=== PATIENT | female | born 1965 | race Caucasian/White ===

== ENCOUNTER 2024-02-24 12:37 | Emergency (ER) | payer BC, SELFPAY ==
--- NOTE | ~2024-02-24 | CT_ITS ---
EXAMINATION: CT diagnostic chest wo con DATE: 02/24/2024 15:15 INDICATION: left posterior rib pain, fall TECHNIQUE: Computed tomography (CT) of the chest was performed with 100 mL Omnipaque-350 intravenous contrast. Automated exposure control and iterative reconstruction technique were employed. The dose-l ength product was 128.64 mGy-cm. COMPARISON: None. FINDINGS: CHEST: Thoracic aorta: No significant dilation. Mild arch calcification. Lung parenchyma and airways: Airways are clear. Bilateral lower lobe linear opacities likely represen ting atelectasis/scar. Thoracic inlet, axillae and chest wall: No thyroid or soft tissue mass. Left posterolateral chest sub cutaneous stranding and subcutaneous gas along the chest wall at the level of the ninth rib. No axill shy lymphadenopathy. Mediastinum: No mass or lymphadenopathy. Heart and pericardium: Normal heart size. No pericardial effusion. Coronary artery calcifications: Absent. Pleura: No effusion or mass. Upper abdomen: Diffusely low density liver parenchyma. Thoracic bones: Mildly displaced left posterolateral eighth rib fracture. Nondisplaced left posterior ninth-11th rib fractures. IMPRESSION: Mildly displaced left posterolateral eighth rib fracture. Nondisplaced left posterior ninth through 1 1th rib fractures. Extrathoracic subcutaneous gas overlying the left posterolateral ninth rib with overlying soft tissue contusion. Correlate for history or evidence of penetrating trauma. No acute intrathoracic process detected. Hepatic steatosis. Reviewed, dictated and finalized at [facility]. CHILI IMPRESSION: Mildly displaced left posterolateral eighth rib fracture. Nondisplaced left pos terior ninth through 11th rib fractures. Extrathoracic subcutaneous gas overlying the left posterolateral ninth rib with overlying soft tissue contusion. Correlate for history or evidence of penetrat ing trauma. No acute intrathoracic process detected. Hepatic steatosis.
--- NOTE | ~2024-02-24 | CT_ITS ---
EXAMINATION: CT thoracic spine wo con DATE: 02/24/2024 15:15 INDICATION: fall . TECHNIQUE: Computed tomography (CT) of the thoracic spine was performed without intravenous contrast. Automated exposure control and iterative reconstruction technique were employed. The dose-length pro duct was 364.08 mGy-cm. COMPARISON: CT chest, same date FINDINGS: Vertebral body alignment intact. Vertebral body heights preserved. Mild multilevel degenera tive disc disease. No traumatic malalignment or fracture. Left posterior rib fracture. Bibasilar scar /atelectasis. Hepatic steatosis. No severe central canal or neural foraminal narrowing. IMPRESSION: No acute fracture or traumatic malalignment detected in the thoracic spine. Reviewed, dictated and finalized at location [facility]. [facility] [employer]
[2024-02-24 12:45] VITALS: BP 128/73; PULSE 75; RESP 18; TEMP 36.7; O2SAT 95
--- NOTE | 2024-02-24 14:54 | ED_ITS ---
HPI - Back Pain/Injury General Chief Complaint: Back Pain/Injury Stated Complaint: fall, back pain Time Seen by Provider: 02/24/24 14:39 History of Present Illness HPI Narrative: 59-year-old female presents to emergency department for mid/left-sided back pain. Patient states yesterday she was walking up the stairs when she slipped and fell backwards. She hit her mid back on the corner of the step. She did not hit her head or lose consciousness. She denies low back pain, neck pain or other injuries acquired. reports pain is significantly worse with taking a deep breath and with movement. Denies focal numbness or weakness, saddle anesthesia, bowel or bladder incontinence, urinary retention. States she took Tylenol yesterday without improvement. Related Data Allergies Allergy/AdvReac Type Severity Reaction Status Date / Time No Known Allergies Allergy Mild Verified 02/24/24 14:38 Review of Systems Review of Systems: All systems reviewed & are unremarkable except as noted in HPI and below Exam Narrative: GENERAL: Well-appearing, well-nourished, and in no acute distress. HEAD: Normocephalic, atraumatic. EYES: PERRLA and EOMI. ENT: Nares clear, no rhinorrhea or epistaxis. Mucous membranes moist. NECK: No midline cervical spinous tenderness, step-offs or deformities BACK: point tenderness around T9-T11 with tenderness and ecchymosis to the left paraspinous muscles and ribs. No crepitus, step-offs or deformities. No tenderness to lumbar spine or remainder of thoracic spine CHEST: Clear to auscultation. No respiratory distress. no tenderness anterior chest wall HEART: Regular rate and rhythm. No murmur heard. Normal peripheral pulses. ABDOMEN: Soft, nontender, nondistended, normal active bowel sounds. EXTREMITIES: Normal range of motion. No edema. SKIN: Warm, dry, no rash. NEURO: No focal deficits. Alert and oriented x3. No saddle anesthesia. Sensation intact bilateral lower extremities. BLE strength 5/5. Course Vital Signs Vital signs: Vital Signs Temperature 98.1 F 02/24/24 12:45 Pulse Rate 75 02/24/24 12:45 Respiratory Rate 18 02/24/24 12:45 Blood Pressure 128/73 02/24/24 12:45 Pulse Oximetry 95 02/24/24 12:45 Temperature 97.7 F 02/24/24 15:37 Pulse Rate 67 02/24/24 15:37 Respiratory Rate 20 02/24/24 15:37 Blood Pressure 142/87 H 02/24/24 15:37 Pulse Oximetry 97 02/24/24 15:37 MDM - Back Pain/Injury MDM Narrative Medical decision making narrative: 59-year-old female presents emergency department for mid and left back pain after a mechanical injury that occurred yesterday. See HPI for further history. Vitals are stable. She is neurovascularly intact. Exam is significant for the above. CT thoracic spine shows no acute fracture traumatic malalignment. Chest CT shows mildly displaced left posterior lateral 8th rib fracture with nondisplaced left posterior 9th through 11th rib fractures. There is extra thoracic subcutaneous gas overlying the left posterior lateral 9th rib with overlying soft tissue contusion. There is no penetrating trauma to explain this on exam. There is no acute intrathoracic process detected, no hemothorax or pneumothorax. Patient was updated on workup. She received Flexeril, Toradol, lidocaine patch and [place] with significant improvement. Shared decision making regarding disposition today including transfer to Trauma Center. Patient politely declines this and would like to go home. She states she feels much better after the pain medications. She is using an incentive spirometer in the room is doing very well, IS greater than 1750. She has no comorbidities, no history of COPD or asthma, no underlying pneumonia. She is not a smoker. Her sister is at bedside who is planning to keep a close eye on the patient and take care of her until she is able to follow-up with her PCP. I discussed strict ED return precautions and use of incentive spirometer. They are agreeable with the plan verbalized understanding. Discharged in stable condition. Discharge Plan Discharge Clinical Impression: Multiple fractures of ribs Patient Disposition: Home, Self-Care Condition: Stable Instructions: Antibiotic Form, Rib Fracture (ED), Back Pain (ED) Additional Instructions: Your evaluated in the emergency department for back pain. Your found to have fractures of your 8 through 11th left ribs. We discussed having the stay in the hospital or transfer to a trauma center for several rib fractures however you politely declined. Use the incentive spirometer as discussed. Take the medications as needed for pain. Follow-up closely with her primary care provider. Return to the emergency department if you develop difficulty breathing, fever, cough, or other concerning symptoms. Prescriptions: New cyclobenzaprine 10 mg tablet 10 mg PO TID PRN (Reason: muscle spasm) Qty: 14 0RF hydrocodone-acetaminophen 5-325 mg tablet 1 tablet PO Q8H PRN (Reason: pain) Qty: 14 0RF ibuprofen 800 mg tablet 800 mg PO TID PRN (Reason: pain) Qty: 20 0RF lidocaine 5 % adhesive patch,medicated 1 patch topical DAILY Qty: 15 0RF Rx Instructions: leave on most painful area for up to 12 hrs. do not use more than 1 patch in a 24-hour period. Follow-up/Referrals: Ofe,Hernandez Morin MD [Primary Care Provider] -
[2024-02-24] MEDS: CYCLOBENZAPRINE HCL 10 MG TABLET PO (15:00)
[2024-02-24] MEDS: KETOROLAC 30 MG/ML VIAL (*BKC) IM (15:01)
[2024-02-24] MEDS: LIDOCAINE 5% PATCH 1 PATCH TRANSDERM (15:01)
[2024-02-24 15:37] VITALS: BP 142/87; PULSE 67; RESP 20; TEMP 36.5; O2SAT 97
[2024-02-24] MEDS: HYDROcodone/acetaminophen (*CRX) 5-325 MG TABLET 1 TAB PO (15:40)
== END 2024-02-24 16:24 | disposition home or self-care (01) ==
PROVIDERS: Emergency Provider Physician Assistant; PCP Family Medicine
DX: S22.42XA Multiple fractures of ribs, left side, initial encounter for closed fracture (principal); W10.9XXA Fall (on) (from) unspecified stairs and steps, initial encounter
CPT/HCPCS: 71250; 72128; 96372; 99284; A9270; J1885

== ENCOUNTER 2024-07-15 18:43 | Observation (INO) | payer BC, SELFPAY ==
--- NOTE | ~2024-07-15 | CT_ITS ---
CLINICAL INDICATION: Nausea, vomiting and diarrhea COMPARISON: None. TECHNIQUE: Multiple contiguous axial images of the abdomen and pelvis were performed following the ad ministration of with 100 mL Omnipaque-350 intravenous contrast The dose-length product (DLP) was 292.59 mGy-cm. Automated exposure control and iterative reconstruction technique were employed. FINDINGS/OBSERVATIONS: Visualized lower thorax: The bilateral lung bases are clear. The heart is of normal size, without pericardial effusion. The distal esophagus is fluid-filled and demonstrates mural thickening with hyperemia of the inner wa ll. Liver: The liver demonstrates fatty infiltration and is not enlarged. Gallbladder and biliary system: The gallbladder is surgically absent. Pancreas: The pancreas enhances homogeneously without ductal dilatation. Spleen: The spleen enhances homogeneously and is not enlarged. Kidneys: The bilateral kidneys enhance symmetrically without hydronephrosis or renal calculi. Adrenal glands: Unremarkable. Gastrointestinal tract: Colonic diverticulosis without surrounding inflammatory change. Appendix: The air-filled appendix is of normal caliber (axial series, images 94 through 112) Vasculature: Unremarkable. Lymph nodes: No pathologically enlarged or morphologically suspicious lymph nodes within the retroperitoneum or at the root of the mesentery. Pelvic structures: The bladder is decompressed, and otherwise unremarkable. The uterus is retroverted and antral flexed. Body wall and musculoskeletal: Small bowel containing nonobstructing supraumbilical hernia is present. No significant degenerative disease within the lower thoracic or lumbosacral spine. IMPRESSION: Findings within the distal esophagus for which esophagitis is suspected. Colonic diverticulosis. Small bowel containing, nonobstructing, supraumbilical hernia. Fatty infiltration of the liver. Reviewed, dictated and finalized at location A.
--- OUTSIDE RECORDS SUMMARY | 2024-07-15 18:45 | XMS_ITS | Clinical Summary ---
Author Organization [address] lt Address [address] [place] [address] [place] [address] Care Team Providers Care Nut Sorter Operator Name Role Phone Unknown, Notinfile Primary Care Provider Unavail able Allergies No known active allergies Medications azithromycin (ZITHROMAX) 250 mg tabletIndicatio ns:Bronchitis Take two tabs first day, then one tab daily x 4 days 6 tablet 4 Active Additional Information Patient not taking.Reported on 06/25/2024 methylPREDNISol one (Medrol, Vik,) 4 mg DosepackIndicat ions:Bronchitis follow package directions 1 packet 4 Active Additional Information Patient not taking.Reported on 06/25/2024 cyclobenzaprine (FLEXERIL) 10 mg tablet Take by mouth nightly as needed 5 Active Active Problems No known active problems Encounters Date Type Department Care Team Description 06/25/2024 12:45 PM CDT Office Visit [facility] at [address] [place] [address] Ally Cohn NP Viral URI (Primary Dx) from Last 3 Months Social History Tobacco Use Types Packs/Day Years Used Date Smoking Tobacco: Never Assessed Comments No Sex and Gender Information Value Date Recorded Sex Assigned at Not on file 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 Gender Identity Not on file Sexual Orientation Not on file Obstetrics History Last Filed Vital Signs Vital Sign Reading Time Taken Comments Blood Pressure 116/68 06/25/2024 12:40 PM CDT Pulse 67 06/25/2024 12:40 PM CDT Temperature 36.6 C (97.8 F) 06/25/2024 12:40 PM CDT Respiratory Rate 16 06/25/2024 12:40 PM CDT Oxygen Saturation 98% 06/25/2024 12:40 PM CDT Inhaled Oxygen Concentration - - Weight 65.8 kg (145 lb) 06/25/2024 12:40 PM CDT Height 149.9 cm (4' 11 ) 06/25/2024 12:40 PM CDT Body Mass Index 29.29 06/25/2024 12:40 PM CDT Plan of Treatment Health Maintenance Due Date Last Done Comments Breast Cancer Screening-Mammogram 1965 Cervical Cancer Screening 1965 Colon Cancer Screening-Colonoscopy 1965 Depression Screening 1965 Hepatitis C Screening 1965 DTaP/Tdap/Td Vaccine (1 - Tdap) 01/13/1976 Hepatitis B Screening 1983 Regular Well Visit/Exam 18-64 1983 Zoster Vaccine (1 of 2) 2015 Influenza Vaccine (Season Ended) 2024 Pneumococcal vaccine <65 Aged Out No longer eligible based on patient's age to complete this topic Procedures Procedure Name Priority Date/Time Associated Diagnosis Comments POCT RAPID STREP Routine 06/25/2024 12:5 5 PM CDT Viral URI from Last 3 Months Results * POCT rapid strep A (06/25/2024 12:55 PM CDT) Rapid Strep A, POC Negative Negative Swab 06/25/2024 12:5 5 PM CDT Ally Cohn NP POINT OF CARE TEST ORDERABLES Final Result from Last 3 Months Insurance [employer] Care Teams Nut Sorter Operator Relationship Specialty Start Date End Date Unknown, Notinfile PCP - General 04/01/23
--- OUTSIDE RECORDS SUMMARY | 2024-07-15 18:45 | XMS_ITS | Referral Summary ---
Author Organization [address] lto Address [address] [place] [address] Care Team Providers Care Order Dispatcher Name Role Phone Unknown, Notinfile Primary Care Provider Unavail able Encounters Date Type Department Care Team Description 06/25/2024 12:45 PM CDT Office Visit [facility] at [place] [address] [place] [address] Ally Cohn, KALA Viral URI (Primary Dx) from Last 3 Months Allergies No known active allergies Medications azithromycin [...] Active Active Problems No known active problems Social History Tobacco Use Types Packs/Day Years Used Date Smoking Tobacco: Never Assessed Comments No Sex and Gender Information Value Date Recorded Sex Assigned at Not on file 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 Gender Identity Not on file Sexual Orientation Not on file Last Filed Vital Signs Vital Sign Reading [...] 06/25/2024 12:40 PM CDT Plan of Treatment Not on file Procedures Procedure Name Priority Date/Time Associated Diagnosis Comments POCT RAPID STREP Routine 06/25/2024 12:5 5 PM CDT Viral URI from Last 3 Months Results * POCT rapid strep A (06/25/2024 12:55 PM CDT) [facility] Signature Rapid Strep A, POC Negative Negative Swab 06/25/2024 12:5 5 PM CDT Ally Cohn NP POINT OF CARE TEST ORDERABLES Final Result from Last 3 Months Insurance PENDING SALE TO [facility] ACCESS Care Teams Order Dispatcher Relationship Specialty Start Date End Date Unknown, Notinfile PCP - General 04/01/23
[2024-07-15 18:46] VITALS: BP 106/85; PULSE 107; RESP 14; TEMP 36.8; O2SAT 96
[2024-07-15 18:49] VITALS: BP 118/67; PULSE 67; RESP 18; TEMP 36.9; O2SAT 99
--- NOTE | 2024-07-15 18:49 | ECG_ITS ---
Test Date: 2024-07-15 18:59:02 Measurements Intervals [place] Rate: 78 P: 39 PA: 142 QRS: 11 QRSD: 85 T: 62 QT: 413 QTc: 472 Interpretive Statements SINUS RHYTHM WITH OCCASIONAL VENTRICULAR PREMATURE COMPLEXES CONSIDER RIGHT VENTRICULAR CONDUCTION DELAY BORDERLINE ST ABNORMALITY- HIGH LATERAL LEADS BASELINE ARTIFACT- I, II, AVR BORDERLINE ECG No previous ECG available for comparison Electronically Signed On 07-15-2024 19:06:13 CDT by Alberto Bowman D.O.
[2024-07-15 19:10] LABS: Basophils Percent Auto 0.1 % (0.2-1.2); Eosinophils Percent Auto 0.1 % (0-4.4); Hematocrit 45.4 % (37.0-47.0); Immature Granulocyte Absolute 0.06 K/mm3 (0.00-0.031); Immature Granulocyte Percent A 0.5 % (0-0.5); Lymphocytes Absolute Auto 1.18 K/mm3 (0.9-3.2); Lymphocytes Percent Auto 9.4 % (18.3-44.2); Mean Corpuscular HGB Conc 35.2 g/dl (32-36); Mean Corpuscular Hemoglobin 34.5 pg (26-34); Mean Corpuscular Volume 97.8 fl (80-100); Mean Platelet Volume 11.9 fl (7.4-10.4); Monocytes Absolute Auto 1.6 K/mm3 (0.1-0.6); Monocytes Percent Auto 12.9 % (2.6-8.5); Neutrophils Absolute Auto 9.7 K/mm3 (1.3-6.7); Nucleated Red Blood Cells Perc 0.2 % (0.0-0.2); Platelet Count Result 182 k/mm3 (150-375); Red Blood Count 4.64 M/mm3 (4.2-5.4); Red Cell Distribution Width 13.4 % (11.5-14.5); White Blood Count 12.5 K/mm3 (4.5-10.0)
[2024-07-15] MEDS: ONDANSETRON INJ 4 MG/2 ML VIAL IV PUSH (19:18)
[2024-07-15] MEDS: SODIUM CHLORIDE 0.9% IV 1,000 ML 999 ML IV CONT ×2 (19:19→20:20)
[2024-07-15] MEDS: FAMOTIDINE 20 MG/2 ML VIAL IV PUSH (19:19)
[2024-07-15 19:24] LABS: Alanine Aminotransferase 102 U/L (6-35); Albumin Level 4.9 g/dL (3.5-5.1); Alkaline Phosphatase 144 U/L (38-126); Anion Gap 20 mmol/L (4-12); Aspartate Amino Transferase 115 U/L (14-36); Bilirubin,Total 6.5 mg/dL (0.2-1.3); Blood Urea Nitrogen 43 mg/dL (7-17); Calcium 9.3 mg/dL (8.4-10.2); Carbon Dioxide 36 mmol/L (22-30); Chloride 71 mmol/L (98-107); Estimated Glomerular Filt Rate 52; Glucose 142 mg/dL (65-110); Lipase 75 U/L (23-300); Potassium 2.6 mmol/L (3.4-5.0); Sodium 127 mmol/L (137-145)
[2024-07-15 19:31] LABS: Troponin I < 0.012 ng/mL (0.000-0.034)
--- OUTSIDE RECORDS SUMMARY | 2024-07-15 19:39 | XMS_ITS | Referral Summary ---
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
--- OUTSIDE RECORDS SUMMARY | 2024-07-15 19:39 | XMS_ITS | Clinical Summary ---
Author Organization [address] lt Address [address] [place] [address] [place] [address] Care Team Providers Care Medical Office Scheduler Name Role Phone Unknown, Notinfile Primary Care [...] Description 06/25/2024 12:45 PM CDT Office Visit 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
[2024-07-15 19:47] LABS: Influenza A QL RT-PCR Negative (Negative); Influenza B QL RT-PCR Negative (Negative); RSV RNA, RT-PCR Negative (Negative); SARS-CoV-2 RNA PCR Negative (Negative)
--- NOTE | 2024-07-15 19:55 | ED_ITS ---
HPI - Nausea/Vomiting/Diarrhea General Chief complaint: Nausea/Vomiting/Diarrhea Stated complaint: vomiting for 4 days, SOB Time Seen by Provider: 07/15/24 18:48 History of Present Illness HPI Narrative: 59-year-old otherwise healthy female presenting to the emergency room with chief complaint of nausea vomiting and some abdominal pain for last 4 days. She states that she feels very sick and ill. Denies any chest pain, chest tightness, fever, chills. No urinary complaints. No history of similar events. Patient is a poor historian triage. Was otherwise in her normal state of health, no sick contacts. No history of abdominal surgeries. She states she has vomited numerous times the last 2 days and not able to keep anything down. Related Data Allergies Allergy/AdvReac Type Severity Reaction Status Date / Time No Known Allergies Allergy Mild Verified 07/15/24 18:44 Review of Systems 2 Review of Systems: As reviewed above in HPI Exam 2 Narrative: GENERAL: [Well-appearing, well-nourished, and in no acute distress.] HEAD: [Normocephalic, atraumatic.] EYES: [PERRLA and EOMI.] ENT: Nares clear, no rhinorrhea or epistaxis. Mucous membranes dry. NECK: Supple. In no min CHEST: [Clear to auscultation. No respiratory distress.] HEART: [Regular rate and rhythm]. No murmur heard. [Normal peripheral pulses.] ABDOMEN: [Soft, nondistended], [nontender], [No rigidity or guarding] EXTREMITIES: Normal range of motion. [No edema.] SKIN: Warm, dry, no rash. NEURO: [No focal deficits]. Alert and oriented [x3.] PSYCH: [Normal mood and affect.] Course Vital Signs Vital signs: Vital Signs Temperature 36.8 C 07/15/24 18:46 Pulse Rate 107 H 07/15/24 18:46 Respiratory Rate 14 07/15/24 18:46 Blood Pressure 106/85 07/15/24 18:46 Pulse Oximetry 96 07/15/24 18:46 Oxygen Delivery Room Air 07/15/24 18:46 Temperature 36.8 C 07/15/24 18:46 Pulse Rate 72 07/15/24 20:27 Respiratory Rate 14 07/15/24 20:27 Blood Pressure 129/82 07/15/24 20:27 Pulse Oximetry 97 07/15/24 20:27 Oxygen Delivery Room Air 07/15/24 18:46 MDM - Nausea/Vomiting/Diarrhea MDM Narrative Medical decision making narrative: 59-year-old female with no pertinent past medical history presenting with 4 days of nausea vomiting and abdominal discomfort. Patient states she feels ill. Denies any chest pain, fever, chills. No urinary complaints. Slightly tachycardic on triage vitals but no hypoxia, tachypnea, blood pressure concerns. No fever. She has a soft nondistended abdomen. No appreciable tenderness to palpation. She is dehydrated appearance with dry mucous membranes. She was given fluid resuscitation and IV was established with laboratory assessments drawn. CBC, CMP, lipase ordered. CT scan of the abdomen pelvis was obtained. She was treated with a combination of Pepcid, Zofran, fluids and re-evaluated frequently. Patient's laboratory studies came back with a critically low potassium of 2.6. Magnesium level is added on. She was given IV and p.o. potassium supplementation as well as a magnesium bolus. Additional fluids given as she was having significant dehydration with low sodium and chloride as well as a slightly elevated creatinine. Pending workup completion. Workup shows slight leukocytosis of 12.5, hemoglobin 16.0 with hemoconcentration likely from dehydration. Pre renal azotemia with a BUN of 43 and creatinine 1.08 as well as dehydration with low sodium and chloride. LFTs mildly elevated. Bilirubin elevated. Negative troponin. Negative lipase. Urinalysis with no signs of infection. CT scan shows distal esophagitis, colonic diverticulosis, nonobstructing supraumbilical hernia and fatty liver. Patient was re-evaluated had significant improvement after fluids and electrolyte repletion. Given her critically low potassium she will require admission to a telemetry monitored bed for continued repletion and observation. Patient was no longer nauseous or vomiting here in the emergency department her vital signs are all normal. I discussed the case with the night hospitalist Dr. Odonnell who accepted the patient to telemetry monitored bed at this time. Medical Records Attestation: I reviewed the patient's medical records. Lab Data Attestation: I reviewed the patient's lab results. 07/15/24 18:57 07/15/24 18:57 Labs: Lab Results 07/15/24 07/15/24 07/15/24 Range/Units 18:57 18:57 18:57 WBC 12.5 H (4.5-10.0) K/mm3 RBC 4.64 (4.2-5.4) M/mm3 Hgb 16.0 H (12.0-15.0) g/dL Hct 45.4 (37.0-47.0) % MCV 97.8 (80-100) fl MCH 34.5 H (26-34) pg MCHC 35.2 (32-36) g/dl RDW 13.4 (11.5-14.5) % Plt Count 182 (150-375) k/mm3 MPV 11.9 H (7.4-10.4) fl Immature Gran % (Auto) 0.5 (0-0.5) % Neut % (Auto) 77.0 H (45.5-73.1) % Lymph % (Auto) 9.4 L (18.3-44.2) % [place] % (Auto) 12.9 H (2.6-8.5) % Eos % (Auto) 0.1 (0-4.4) % Baso % (Auto) 0.1 L (0.2-1.2) % Lymph # (Auto) 1.18 (0.9-3.2) K/mm3 [place] # (Auto) 1.6 H (0.1-0.6) K/mm3 Eos # (Auto) 0.0 (0-0.3) K/mm3 Baso # (Auto) 0.0 (0.0-0.1) K/mm3 Abs Immat Gran (auto) 0.06 H (0.00-0.031) K/mm3 Absolute Neuts (auto) 9.7 H (1.3-6.7) K/mm3 Absolute Nucleated RBC 0.020 H (0.0-0.012) K/mm3 Nucleated RBC % 0.2 (0.0-0.2) % Sodium Cancelled 127 L Potassium Cancelled 2.6 L* Chloride Cancelled Carbon Dioxide Anion Gap BUN Creatinine Estim Creat Clear Calc Estimated GFR Glucose Calcium Magnesium (1.6-2.3) mg/dL Total Bilirubin AST ALT Alkaline Phosphatase Troponin I (0.000-0.034) ng/mL Total Protein Albumin Lipase Urine Color (Yellow) Urine Appearance (Clear) Urine pH (5.0-9.0) Ur Specific [place] (1.001-1.035) Urine Protein (Negative) mg/dL Urine Glucose (UA) (Negative) mg/dL Urine Ketones (Negative) mg/dL Ur Blood (Man) (Negative) Urine Nitrate (Negative) Urine Bilirubin (Negative) Urine Urobilinogen (<2.0) mg/dL Leukocyte Esterase Rfl (Negative) JANY/UL Urine RBC (0-2) /hpf Urine WBC (0-3) /hpf Ur Squamous Epith Cells (Few) /hpf Urine Bacteria /hpf Urine Casts Influenza A (RT-PCR) (Negative) Influenza B (RT-PCR) (Negative) RSV (RT-PCR) (Negative) SARS-CoV-2 RNA (RT-PCR) (Negative) 07/15/24 07/15/24 07/15/24 Range/Units 18:57 18:57 18:57 WBC (4.5-10.0) K/mm3 RBC (4.2-5.4) M/mm3 Hgb (12.0-15.0) g/dL Hct (37.0-47.0) % MCV (80-100) fl MCH (26-34) pg MCHC (32-36) g/dl RDW (11.5-14.5) % Plt Count (150-375) k/mm3 MPV (7.4-10.4) fl Immature Gran % (Auto) (0-0.5) % Neut % (Auto) (45.5-73.1) % Lymph % (Auto) (18.3-44.2) % [place] % (Auto) (2.6-8.5) % Eos % (Auto) (0-4.4) % Baso % (Auto) (0.2-1.2) % Lymph # (Auto) (0.9-3.2) K/mm3 [place] # (Auto) (0.1-0.6) K/mm3 Eos # (Auto) (0-0.3) K/mm3 Baso # (Auto) (0.0-0.1) K/mm3 Abs Immat Gran (auto) (0.00-0.031) K/mm3 Absolute Neuts (auto) (1.3-6.7) K/mm3 Absolute Nucleated RBC (0.0-0.012) K/mm3 Nucleated RBC % (0.0-0.2) % Sodium Potassium Chloride 71 L Carbon Dioxide Cancelled 36 H Anion Gap Cancelled 20 H BUN Cancelled Creatinine Estim Creat Clear Calc Estimated GFR Glucose Calcium Magnesium (1.6-2.3) mg/dL Total Bilirubin AST ALT Alkaline Phosphatase Troponin I (0.000-0.034) ng/mL Total Protein Albumin Lipase Urine Color (Yellow) Urine Appearance (Clear) Urine pH (5.0-9.0) Ur Specific [place] (1.001-1.035) Urine Protein (Negative) mg/dL Urine Glucose (UA) (Negative) mg/dL Urine Ketones (Negative) mg/dL Ur Blood (Man) (Negative) Urine Nitrate (Negative) Urine Bilirubin (Negative) Urine Urobilinogen (<2.0) mg/dL Leukocyte Esterase Rfl (Negative) JANY/UL Urine RBC (0-2) /hpf Urine WBC (0-3) /hpf Ur Squamous Epith Cells (Few) /hpf Urine Bacteria /hpf Urine Casts Influenza A (RT-PCR) (Negative) Influenza B (RT-PCR) (Negative) RSV (RT-PCR) (Negative) SARS-CoV-2 RNA (RT-PCR) (Negative) 07/15/24 07/15/24 07/15/24 Range/Units 18:57 18:57 18:57 WBC (4.5-10.0) K/mm3 RBC (4.2-5.4) M/mm3 Hgb (12.0-15.0) g/dL Hct (37.0-47.0) % MCV (80-100) fl MCH (26-34) pg MCHC (32-36) g/dl RDW (11.5-14.5) % Plt Count (150-375) k/mm3 MPV (7.4-10.4) fl Immature Gran % (Auto) (0-0.5) % Neut % (Auto) (45.5-73.1) % Lymph % (Auto) (18.3-44.2) % [place] % (Auto) (2.6-8.5) % Eos % (Auto) (0-4.4) % Baso % (Auto) (0.2-1.2) % Lymph # (Auto) (0.9-3.2) K/mm3 [place] # (Auto) (0.1-0.6) K/mm3 Eos # (Auto) (0-0.3) K/mm3 Baso # (Auto) (0.0-0.1) K/mm3 Abs Immat Gran (auto) (0.00-0.031) K/mm3 Absolute Neuts (auto) (1.3-6.7) K/mm3 Absolute Nucleated RBC (0.0-0.012) K/mm3 Nucleated RBC % (0.0-0.2) % Sodium Potassium Chloride Carbon Dioxide Anion Gap BUN 43 H Creatinine Cancelled 1.08 H Estim Creat Clear Calc Cancelled Not Reportable Estimated GFR Cancelled Glucose Calcium Magnesium (1.6-2.3) mg/dL Total Bilirubin AST ALT Alkaline Phosphatase Troponin I (0.000-0.034) ng/mL Total Protein Albumin Lipase Urine Color (Yellow) Urine Appearance (Clear) Urine pH (5.0-9.0) Ur Specific [place] (1.001-1.035) Urine Protein (Negative) mg/dL Urine Glucose (UA) (Negative) mg/dL Urine Ketones (Negative) mg/dL Ur Blood (Man) (Negative) Urine Nitrate (Negative) Urine Bilirubin (Negative) Urine Urobilinogen (<2.0) mg/dL Leukocyte Esterase Rfl (Negative) JANY/UL Urine RBC (0-2) /hpf Urine WBC (0-3) /hpf Ur Squamous Epith Cells (Few) /hpf Urine Bacteria /hpf Urine Casts Influenza A (RT-PCR) (Negative) Influenza B (RT-PCR) (Negative) RSV (RT-PCR) (Negative) SARS-CoV-2 RNA (RT-PCR) (Negative) 07/15/24 07/15/24 07/15/24 Range/Units 18:57 18:57 18:57 WBC (4.5-10.0) K/mm3 RBC (4.2-5.4) M/mm3 Hgb (12.0-15.0) g/dL Hct (37.0-47.0) % MCV (80-100) fl MCH (26-34) pg MCHC (32-36) g/dl RDW (11.5-14.5) % Plt Count (150-375) k/mm3 MPV (7.4-10.4) fl Immature Gran % (Auto) (0-0.5) % Neut % (Auto) (45.5-73.1) % Lymph % (Auto) (18.3-44.2) % [place] % (Auto) (2.6-8.5) % Eos % (Auto) (0-4.4) % Baso % (Auto) (0.2-1.2) % Lymph # (Auto) (0.9-3.2) K/mm3 [place] # (Auto) (0.1-0.6) K/mm3 Eos # (Auto) (0-0.3) K/mm3 Baso # (Auto) (0.0-0.1) K/mm3 Abs Immat Gran (auto) (0.00-0.031) K/mm3 Absolute Neuts (auto) (1.3-6.7) K/mm3 Absolute Nucleated RBC (0.0-0.012) K/mm3 Nucleated RBC % (0.0-0.2) % Sodium Potassium Chloride Carbon Dioxide Anion Gap BUN Creatinine Estim Creat Clear Calc Estimated GFR 52 L Glucose Cancelled 142 H Calcium Cancelled 9.3 Magnesium 2.7 H (1.6-2.3) mg/dL Total Bilirubin Cancelled AST ALT Alkaline Phosphatase Troponin I (0.000-0.034) ng/mL Total Protein Albumin Lipase Urine Color (Yellow) Urine Appearance (Clear) Urine pH (5.0-9.0) Ur Specific [place] (1.001-1.035) Urine Protein (Negative) mg/dL Urine Glucose (UA) (Negative) mg/dL Urine Ketones (Negative) mg/dL Ur Blood (Man) (Negative) Urine Nitrate (Negative) Urine Bilirubin (Negative) Urine Urobilinogen (<2.0) mg/dL Leukocyte Esterase Rfl (Negative) JANY/UL Urine RBC (0-2) /hpf Urine WBC (0-3) /hpf Ur Squamous Epith Cells (Few) /hpf Urine Bacteria /hpf Urine Casts Influenza A (RT-PCR) (Negative) Influenza B (RT-PCR) (Negative) RSV (RT-PCR) (Negative) SARS-CoV-2 RNA (RT-PCR) (Negative) 07/15/24 07/15/24 07/15/24 Range/Units 18:57 18:57 18:57 WBC (4.5-10.0) K/mm3 RBC (4.2-5.4) M/mm3 Hgb (12.0-15.0) g/dL Hct (37.0-47.0) % MCV (80-100) fl MCH (26-34) pg MCHC (32-36) g/dl RDW (11.5-14.5) % Plt Count (150-375) k/mm3 MPV (7.4-10.4) fl Immature Gran % (Auto) (0-0.5) % Neut % (Auto) (45.5-73.1) % Lymph % (Auto) (18.3-44.2) % [place] % (Auto) (2.6-8.5) % Eos % (Auto) (0-4.4) % Baso % (Auto) (0.2-1.2) % Lymph # (Auto) (0.9-3.2) K/mm3 [place] # (Auto) (0.1-0.6) K/mm3 Eos # (Auto) (0-0.3) K/mm3 Baso # (Auto) (0.0-0.1) K/mm3 Abs Immat Gran (auto) (0.00-0.031) K/mm3 Absolute Neuts (auto) (1.3-6.7) K/mm3 Absolute Nucleated RBC (0.0-0.012) K/mm3 Nucleated RBC % (0.0-0.2) % Sodium Potassium Chloride Carbon Dioxide Anion Gap BUN Creatinine Estim Creat Clear Calc Estimated GFR Glucose Calcium Magnesium (1.6-2.3) mg/dL Total Bilirubin 6.5 H AST Cancelled 115 H ALT Cancelled 102 H Alkaline Phosphatase Cancelled Troponin I (0.000-0.034) ng/mL Total Protein Albumin Lipase Urine Color (Yellow) Urine Appearance (Clear) Urine pH (5.0-9.0) Ur Specific [place] (1.001-1.035) Urine Protein (Negative) mg/dL Urine Glucose (UA) (Negative) mg/dL Urine Ketones (Negative) mg/dL Ur Blood (Man) (Negative) Urine Nitrate (Negative) Urine Bilirubin (Negative) Urine Urobilinogen (<2.0) mg/dL Leukocyte Esterase Rfl (Negative) JANY/UL Urine RBC (0-2) /hpf Urine WBC (0-3) /hpf Ur Squamous Epith Cells (Few) /hpf Urine Bacteria /hpf Urine Casts Influenza A (RT-PCR) (Negative) Influenza B (RT-PCR) (Negative) RSV (RT-PCR) (Negative) SARS-CoV-2 RNA (RT-PCR) (Negative) 07/15/24 07/15/24 07/15/24 Range/Units 18:57 18:57 18:57 WBC (4.5-10.0) K/mm3 RBC (4.2-5.4) M/mm3 Hgb (12.0-15.0) g/dL Hct (37.0-47.0) % MCV (80-100) fl MCH (26-34) pg MCHC (32-36) g/dl RDW (11.5-14.5) % Plt Count (150-375) k/mm3 MPV (7.4-10.4) fl Immature Gran % (Auto) (0-0.5) % Neut % (Auto) (45.5-73.1) % Lymph % (Auto) (18.3-44.2) % [place] % (Auto) (2.6-8.5) % Eos % (Auto) (0-4.4) % Baso % (Auto) (0.2-1.2) % Lymph # (Auto) (0.9-3.2) K/mm3 [place] # (Auto) (0.1-0.6) K/mm3 Eos # (Auto) (0-0.3) K/mm3 Baso # (Auto) (0.0-0.1) K/mm3 Abs Immat Gran (auto) (0.00-0.031) K/mm3 Absolute Neuts (auto) (1.3-6.7) K/mm3 Absolute Nucleated RBC (0.0-0.012) K/mm3 Nucleated RBC % (0.0-0.2) % Sodium Potassium Chloride Carbon Dioxide Anion Gap BUN Creatinine Estim Creat Clear Calc Estimated GFR Glucose Calcium Magnesium (1.6-2.3) mg/dL Total Bilirubin AST ALT Alkaline Phosphatase 144 H Troponin I < 0.012 (0.000-0.034) ng/mL Total Protein Cancelled 9.0 H Albumin Cancelled 4.9 Lipase Cancelled Urine Color (Yellow) Urine Appearance (Clear) Urine pH (5.0-9.0) Ur Specific [place] (1.001-1.035) Urine Protein (Negative) mg/dL Urine Glucose (UA) (Negative) mg/dL Urine Ketones (Negative) mg/dL Ur Blood (Man) (Negative) Urine Nitrate (Negative) Urine Bilirubin (Negative) Urine Urobilinogen (<2.0) mg/dL Leukocyte Esterase Rfl (Negative) JANY/UL Urine RBC (0-2) /hpf Urine WBC (0-3) /hpf Ur Squamous Epith Cells (Few) /hpf Urine Bacteria /hpf Urine Casts Influenza A (RT-PCR) (Negative) Influenza B (RT-PCR) (Negative) RSV (RT-PCR) (Negative) SARS-CoV-2 RNA (RT-PCR) (Negative) 07/15/24 07/15/24 Range/Units 18:57 20:18 WBC (4.5-10.0) K/mm3 RBC (4.2-5.4) M/mm3 Hgb (12.0-15.0) g/dL Hct (37.0-47.0) % MCV (80-100) fl MCH (26-34) pg MCHC (32-36) g/dl RDW (11.5-14.5) % Plt Count (150-375) k/mm3 MPV (7.4-10.4) fl Immature Gran % (Auto) (0-0.5) % Neut % (Auto) (45.5-73.1) % Lymph % (Auto) (18.3-44.2) % [place] % (Auto) (2.6-8.5) % Eos % (Auto) (0-4.4) % Baso % (Auto) (0.2-1.2) % Lymph # (Auto) (0.9-3.2) K/mm3 [place] # (Auto) (0.1-0.6) K/mm3 Eos # (Auto) (0-0.3) K/mm3 Baso # (Auto) (0.0-0.1) K/mm3 Abs Immat Gran (auto) (0.00-0.031) K/mm3 Absolute Neuts (auto) (1.3-6.7) K/mm3 Absolute Nucleated RBC (0.0-0.012) K/mm3 Nucleated RBC % (0.0-0.2) % Sodium Potassium Chloride Carbon Dioxide Anion Gap BUN Creatinine Estim Creat Clear Calc Estimated GFR Glucose Calcium Magnesium (1.6-2.3) mg/dL Total Bilirubin AST ALT Alkaline Phosphatase Troponin I (0.000-0.034) ng/mL Total Protein Albumin Lipase 75 Urine Color Yellow (Yellow) Urine Appearance Clear (Clear) Urine pH 6.5 (5.0-9.0) Ur Specific [place] > 1.045 H (1.001-1.035) Urine Protein Trace (Negative) mg/dL Urine Glucose (UA) Negative (Negative) mg/dL Urine Ketones 1+ H (Negative) mg/dL Ur Blood (Man) 1+ H (Negative) Urine Nitrate Negative (Negative) Urine Bilirubin Negative (Negative) Urine Urobilinogen 1.0 (<2.0) mg/dL Leukocyte Esterase Rfl Negative (Negative) JANY/UL Urine RBC 6-10 H (0-2) /hpf Urine WBC 0-5 (0-3) /hpf Ur Squamous Epith Cells Few (Few) /hpf Urine Bacteria Rare /hpf Urine Casts 3-5 Influenza A (RT-PCR) Negative (Negative) Influenza B (RT-PCR) Negative (Negative) RSV (RT-PCR) Negative (Negative) SARS-CoV-2 RNA (RT-PCR) Negative (Negative) Imaging Data Attestation: I personally reviewed and interpreted this imaging study as follows: My impression: Impressions Abdomen/Pelvis CT 07/15/24 19:48 IMPRESSION: Findings within the distal esophagus for which esophagitis is suspected. Colonic diverticulosis. Small bowel containing, nonobstructing, supraumbilical hernia. Fatty infiltration of the liver. ECG Data EKG #1: Attestation: I personally reviewed and interpreted this ECG as follows: ECG completion date: 07/15/24 ECG completion time: 18:59 Prior ECG tracings: available for review Interpretation: Sinus rhythm with occasional supraventricular PVC, QTC 472, WA interval 142, rate of 78 beats per minute. Overall normal sinus rhythm, regular rate and rhythm. No ST segment elevations. Critical Care Time Critical Care Time Critical Care Time: Yes Total Critical Care Time: 35 Discharge Plan Discharge Clinical Impression: Acute hypokalemia, Acute prerenal azotemia, Acute dehydration, Nausea & vomiting, Esophagitis Patient Disposition: Still a Patient Condition: Stable Patient Language: Citizen Of [place] Prescriptions: No Action cyclobenzaprine 10 mg tablet 10 mg PO TID PRN (Reason: muscle spasm) Qty: 14 0RF hydrocodone-acetaminophen 5-325 mg tablet 1 tablet PO Q8H PRN (Reason: pain) Qty: 14 0RF ibuprofen 800 mg tablet 800 mg PO TID PRN (Reason: pain) Qty: 20 0RF lidocaine 5 % adhesive patch,medicated 1 patch topical DAILY Qty: 15 0RF Rx Instructions: leave on most painful area for up to 12 hrs. do not use more than 1 patch in a 24-hour period. Follow-up/Referrals: Ofe,Hernandez Morin MD [Primary Care Provider] - Time of Disposition: 21:55
[2024-07-15] MEDS: POTASSIUM CHLORIDE 20 MEQ PACKET (FOR LIQUID) 40 MEQ PO (20:07)
[2024-07-15] MEDS: MAGNESIUM SULF 2 GM/WATER 50ML 2 GM/50 ML BAG IVPB (20:08)
[2024-07-15] MEDS: METOCLOPRAMIDE HCL INJ 10 MG/2 ML VIAL IV PUSH (20:08)
[2024-07-15 20:10] LABS: Magnesium 2.7 mg/dL (1.6-2.3)
[2024-07-15] MEDS: POTASSIUM CHLORIDE INJ 40 MEQ in SODIUM CHLORIDE 0.9% IV 500 ML 130 MEQ IVPB (20:20)
[2024-07-15 20:27] VITALS: BP 129/82; PULSE 72; RESP 14; O2SAT 97
[2024-07-15 20:34] LABS: Add Urine Microscopic? YES; Appearance Urine Clear (Clear); Bacteria Urine Rare /hpf; Bilirubin Urine Negative (Negative); Blood Urine 1+ (Negative); Color Urine Yellow (Yellow); Glucose Urine UA Negative (Negative); Ketones Urine 1+ mg/dL (Negative); Leukocyte Esterase Ur Negative LEU/UL (Negative); Nitrate Urine Negative (Negative); Protein Urine Trace mg/dL (Negative); Specific Grav Ur > 1.045 (1.001-1.035); Squamous Epithelial Cell Urine Few /hpf (Few); WBC Urine 0-5 /hpf (0-3); pH Urine 6.5 (5.0-9.0)
--- NOTE | 2024-07-15 22:30 | ADMGEN ---
This patient, Tiesha Rojas, was admitted to Medical Room 243-. Patient/family oriented to hospital policies and general routines including ID bracelet, bed and alarms, visiting hours, pain management, procedures, bathroom and other care routines, personal items, smoking policy, room service/diet, and visiting hours. Information on how to activate the Rapid Response Team has been discussed. Patient/Family are encouraged to report perceived risks to care and to ask questions if they do not understand what they are told or what they should do.
[2024-07-15 22:32] VITALS: BMI 27.3
[2024-07-15 22:45] VITALS: BP 122/70; PULSE 74; RESP 18; TEMP 36.9; O2SAT 100
[2024-07-15 22:46] VITALS: BP 113/70; PULSE 83; RESP 18; TEMP 36.9; O2SAT 100
[2024-07-16] VITALS (10 sets, daily range): BP systolic 100–120; BP diastolic 59–74; PULSE 65–89; RESP 18–20; TEMP 36.5–37.1; O2SAT 91–98; BMI 27.3
[2024-07-16] MEDS: SODIUM CHLORIDE 0.9% IV 1,000 ML 125 ML IV CONT (00:41)
--- NOTE | 2024-07-16 00:50 | P.HP_ITS ---
H&P: HPI History of Present Illness Date/Time: 07/16/24 00:50 Chief Complaint: This is a pleasant 59-year-old female presenting to [facility] on 07/15/2024. Patient reports about 3 days of nausea and vomiting and abdominal pain. She has had minimal diarrhea. She lives alone has not been around anyone sick or traveled. She denies any chest pain shortness of breath or fever. ER evaluation demonstrated mild tachycardia, sinus. She was found to have low potassium at 2.6, hemoglobin of 16, BUN of 43 and creatinine of 1.08 as well as hyponatremia and low chloride. Lipase negative, troponin negative. CT scan of abdomen demonstrated esophagitis, diverticulosis, nonobstructing supraumbilical hernia and fatty liver. The patient does not take medications has no medical conditions diagnosed. He reports poor intake accordingly. Review of Systems Review of Systems: All systems reviewed & are unremarkable except as noted in HPI and below (HPI) [facility] Family History Family History (Updated 07/15/24 @ 22:43 by Yolis Guillermo RN) Other Unknown family medical history Social History Social History Smoking status: Never smoker Alcohol intake: current Drinks per week: 2 Substance use type: does not use Do You Feel Safe in your Home?: Yes Lack of Transportation: No Lack of Food: Never True Current Housing: I Have Housing Concerned About Future Housing: No Difficulty Paying Gas/Electric Bills: No Difficulty Paying for Meds: No Currently Unemployed: No Education: High School Diploma/GED Difficulty w/ Childcare or Family Care: No Spiritual care concerns: No Meds Home Medications and Allergies Home Medications ?Medication ?Instructions ?Recorded ?Confirmed ?Type No Home Medications 07/15/24 07/15/24 History Allergies Allergy/AdvReac Type Severity Reaction Status Date / Time No Known Allergies Allergy Mild Verified 07/15/24 18:44 Vital Signs Vital Signs - 24 hr 07/15/24 18:46 07/15/24 18:49 07/15/24 20:27 Temperature 98.2 F 98.5 F Pulse Rate 107 H 67 72 Respiratory Rate 14 18 14 Blood Pressure 106/85 118/67 129/82 Pulse Oximetry 96 99 97 Oxygen Delivery Room Air 07/15/24 22:45 07/15/24 22:46 07/15/24 22:52 Temperature 98.5 F 98.5 F Pulse Rate 74 83 Respiratory Rate 18 18 Blood Pressure 122/70 113/70 Pulse Oximetry 100 100 Oxygen Delivery Room Air Exam Const: General: comfortable and no acute distress HENMT: Mouth: Yes dry mucous membranes Eyes: Pupils: Equal, round and reactive pupils present Neck: Neck: supple Resp: Effort & Inspection: normal respiratory effort Auscultation: clear to auscultation bilaterally Cardio: Rate: regular rate Rhythm: regular rhythm GI: GI Palp: Yes Soft to palpation : General: Yes bladder normal to palpation Extrem: General: no edema H&P: Results Labs Labs: Short CBC 07/15/24 Range/Units 18:57 WBC 12.5 H (4.5-10.0) K/mm3 Hgb 16.0 H (12.0-15.0) g/dL Hct 45.4 (37.0-47.0) % Plt Count 182 (150-375) k/mm3 BMP 07/15/24 07/15/24 07/15/24 18:57 18:57 18:57 Sodium Cancelled 127 L Potassium Cancelled 2.6 L* Chloride Cancelled Carbon Dioxide BUN Creatinine Glucose Calcium 07/15/24 07/15/24 07/15/24 18:57 18:57 18:57 Sodium Potassium Chloride 71 L Carbon Dioxide Cancelled 36 H BUN Cancelled 43 H Creatinine Cancelled Glucose Calcium 07/15/24 07/15/24 07/15/24 18:57 18:57 18:57 Sodium Potassium Chloride Carbon Dioxide BUN Creatinine 1.08 H Glucose Cancelled 142 H Calcium Cancelled 9.3 Cardiac Enzymes 07/15/24 Range/Units 18:57 Troponin I < 0.012 (0.000-0.034) ng/mL Liver Function 07/15/24 07/15/24 07/15/24 Range/Units 18:57 18:57 18:57 Total Bilirubin Cancelled 6.5 H AST Cancelled 115 H ALT Cancelled Alkaline Phosphatase Albumin 07/15/24 07/15/24 07/15/24 Range/Units 18:57 18:57 18:57 Total Bilirubin AST ALT 102 H Alkaline Phosphatase Cancelled 144 H Albumin Cancelled 4.9 Urine 07/15/24 Range/Units 20:18 Urine Color Yellow (Yellow) Urine Appearance Clear (Clear) Urine pH 6.5 (5.0-9.0) Ur Specific Graff > 1.045 H (1.001-1.035) Urine Protein Trace (Negative) mg/dL Urine Glucose (UA) Negative (Negative) mg/dL Assessment and Plan Assessment and plan (1) Nausea & vomiting: Code(s): R11.2 - Nausea with vomiting, unspecified Status: Acute (2) Esophagitis: Code(s): K20.90 - Esophagitis, unspecified without bleeding Status: Acute (3) Acute prerenal azotemia: Code(s): N19 - Unspecified kidney failure Status: Acute (4) Acute hypokalemia: Code(s): E87.6 - Hypokalemia Status: Acute (5) Acute dehydration: Code(s): E86.0 - Dehydration Status: Acute (6) Transaminitis: Code(s): R74.01 - Elevation of levels of liver transaminase levels Status: Acute (7) Elevated serum creatinine: Code(s): R79.89 - Other specified abnormal findings of blood chemistry Status: Acute Plan This is a pleasant 59-year-old female presenting to [facility] on 07/15/2024. Patient reports about 3 days of nausea and vomiting and abdominal pain. She has had minimal diarrhea. She lives alone has not been around anyone sick or traveled. She denies any chest pain shortness of breath or fever. ER evaluation demonstrated mild tachycardia, sinus. She was found to have low potassium at 2.6, hemoglobin of 16, BUN of 43 and creatinine of 1.08 as well as hyponatremia and low chloride. Lipase negative, troponin negative. CT scan of abdomen demonstrated esophagitis, diverticulosis, nonobstructing supraumbilical hernia and fatty liver. The patient does not take medications has no medical conditions diagnosed. He reports poor intake accordingly. ----- Patient's nausea and vomiting have improved and she is feeling better. She wa nts to try to eat starting with ice chips and liquid diet. Workup has revealed a leukocytosis which is mild and likely reactive. Check procalcitonin. She has hyponatremia and hypokalemia as well as anion gap elevation and serum creatinine of 1.08 with pre renal azotemia. This is all likely due to her starvation and dehydration/hypovolemia. She has received 40 mEq of KCl p.o. and 1 rider IV. Repeat labs are pending. Quad viral screen negative. For her esophagitis will start a PPI. She denies any illicit drug use, alcohol or tobacco abuse. Continue normal saline at 125 cc/hour, Zofran p.r.n.. ----- Full code. SCDs. Clear liquid diet. Normal saline at 125 cc/hour. Admission to telemetry unit, electrolyte derangement. Hospitalist MIPS Advance Care Plan I have confirmed that the patient's Advanced Care Plan is present, code status is documented, or surrogate decision maker is listed in patient medical record.: Yes Medication Reconciliation I have utilized all available resources to obtain, update and review the patients current medications (includes all prescriptions, OTC, herbals, cannabis, and nutritional supplements).: Yes
[2024-07-16 01:03] LABS: Lactic Acid Reflex 1.7 mmol/L (0.7-2.0)
[2024-07-16 02:25] LABS: Alanine Aminotransferase 71 U/L (6-35); Albumin Level 3.3 g/dL (3.5-5.1); Alkaline Phosphatase 91 U/L (38-126); Anion Gap 9 mmol/L (4-12); Aspartate Amino Transferase 96 U/L (14-36); Blood Urea Nitrogen 21 mg/dL (7-17); Calcium 7.5 mg/dL (8.4-10.2); Carbon Dioxide 30 mmol/L (22-30); Chloride 87 mmol/L (98-107); Estimated Glomerular Filt Rate > 60; Glucose 123 mg/dL (65-110); Sodium 126 mmol/L (137-145)
[2024-07-16 02:39] LABS: Basophils Percent Auto 0.2 % (0.2-1.2); Hemoglobin 12.9 g/dL (12.0-15.0); Immature Granulocyte Absolute 0.07 K/mm3 (0.00-0.031); Immature Granulocyte Percent A 0.6 % (0-0.5); Lymphocytes Absolute Auto 1.58 K/mm3 (0.9-3.2); Lymphocytes Percent Auto 13.5 % (18.3-44.2); Mean Corpuscular HGB Conc 33.9 g/dl (32-36); Mean Corpuscular Hemoglobin 34.6 pg (26-34); Mean Corpuscular Volume 101.9 fl (80-100); Mean Platelet Volume 11.6 fl (7.4-10.4); Monocytes Absolute Auto 1.3 K/mm3 (0.1-0.6); Monocytes Percent Auto 11.4 % (2.6-8.5); Neutrophils Absolute Auto 8.7 K/mm3 (1.3-6.7); Neutrophils Percent Auto 74.3 % (45.5-73.1); Nucleated Red Blood Cells Perc 0.3 % (0.0-0.2); Platelet Count Result 138 k/mm3 (150-375); Red Blood Count 3.73 M/mm3 (4.2-5.4); Red Cell Distribution Width 13.6 % (11.5-14.5); White Blood Count 11.7 K/mm3 (4.5-10.0)
[2024-07-16] MEDS: POTASSIUM CHLORIDE INJ 40 MEQ in SODIUM CHLORIDE 0.9% IV 500 ML 130 MEQ IVPB (03:33)
[2024-07-16 07:25] LABS: Basophils Percent Auto 0.1 % (0.2-1.2); Eosinophils Absolute Auto 0.2 K/mm3 (0-0.3); Eosinophils Percent Auto 2.3 % (0-4.4); Hematocrit 36.3 % (37.0-47.0); Hemoglobin 12.2 g/dL (12.0-15.0); Immature Granulocyte Absolute 0.06 K/mm3 (0.00-0.031); Immature Granulocyte Percent A 0.7 % (0-0.5); Lymphocytes Absolute Auto 1.31 K/mm3 (0.9-3.2); Lymphocytes Percent Auto 15.6 % (18.3-44.2); Mean Corpuscular HGB Conc 33.6 g/dl (32-36); Mean Corpuscular Hemoglobin 34.3 pg (26-34); Mean Platelet Volume 11.4 fl (7.4-10.4); Monocytes Absolute Auto 1.1 K/mm3 (0.1-0.6); Monocytes Percent Auto 13.4 % (2.6-8.5); Neutrophils Absolute Auto 5.7 K/mm3 (1.3-6.7); Neutrophils Percent Auto 67.9 % (45.5-73.1); Nucleated Red Blood Cells Perc 0.4 % (0.0-0.2); Platelet Count Result 129 k/mm3 (150-375); Red Blood Count 3.56 M/mm3 (4.2-5.4); Red Cell Distribution Width 13.5 % (11.5-14.5); White Blood Count 8.4 K/mm3 (4.5-10.0)
[2024-07-16 07:33] LABS: Anion Gap 8 mmol/L (4-12); Blood Urea Nitrogen 15 mg/dL (7-17); Calcium 7.8 mg/dL (8.4-10.2); Carbon Dioxide 31 mmol/L (22-30); Chloride 89 mmol/L (98-107); Estimated Glomerular Filt Rate > 60; Glucose 110 mg/dL (65-110); Magnesium 2.7 mg/dL (1.6-2.3); Potassium 3.6 mmol/L (3.4-5.0); Sodium 128 mmol/L (137-145)
[2024-07-16] MEDS: PANTOPRAZOLE SODIUM IV 40 MG VIAL IV PUSH (09:48)
[2024-07-16] MEDS: ACETAMINOPHEN 325 MG TABLET 650 MG PO (09:58)
--- OUTSIDE RECORDS SUMMARY | 2024-07-16 11:47 | XMS_ITS | Referral Summary ---
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
--- OUTSIDE RECORDS SUMMARY | 2024-07-16 11:47 | XMS_ITS | Clinical Summary ---
Author Organization [address] lt Address [address] [place] [address] [place] [address] Care Team Providers Care Maxillofacial Prosthodontist Name Role Phone Unknown, Notinfile Primary Care [...] Description 06/25/2024 12:45 PM CDT Office Visit [facility] at [address] [place] [address] Ally Cohn NP Viral URI (Primary Dx) from Last 3 Months Social History Tobacco Use Types Packs/Day Years Used Date Smoking Tobacco: Never Assessed Comments No Sex and Gender Information Value Date Recorded Sex Assigned at Not on file 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
--- NOTE | 2024-07-16 12:49 | P.PNIM_ITS ---
Progress Note: A&P Assessment and Plan (1) Nausea & vomiting: Code(s): R11.2 - Nausea with vomiting, unspecified Status: Acute Assessment and Plan: * Subsided. * Ondansetron 4 mg ivp q 6 PRN. * Tolerate clear liquids will advance to regular diet for supper. (2) Esophagitis: Code(s): K20.90 - Esophagitis, unspecified without bleeding Status: Acute Assessment and Plan: * CT showed distal esophagus for which esophagitis is suspected. (3) Acute prerenal azotemia: Code(s): N19 - Unspecified kidney failure Status: Acute Assessment and Plan: * Total Bilirubin improving. 6.5>5.0. * Continue to trend. (4) Acute hypokalemia: Code(s): E87.6 - Hypokalemia Status: Acute Assessment and Plan: * Potassium improving. 2.6>3.0>3.6. * Continue to trend. (5) Acute dehydration: Code(s): E86.0 - Dehydration Status: Acute Assessment and Plan: * Tolerating clear liquids. * NS @ 75 ml/hr. (6) Transaminitis: Code(s): R74.01 - Elevation of levels of liver transaminase levels Status: Acute Assessment and Plan: * Improving. * AST 115>96 * ALT 102>71. * Alk phos 144>91. * Continue to trend. (7) Elevated serum creatinine: Code(s): R79.89 - Other specified abnormal findings of blood chemistry Status: Acute Assessment and Plan: * Creatinine improved from 1.08>0.63>0.55. * Continue to trend. (8) Hyponatremia: Code(s): E87.1 - Hypo-osmolality and hyponatremia Status: Acute Assessment and Plan: * Sodium improving from 126>128. * NS @ 75 ml/hr. * Continue to trend. Plan This is a pleasant 59-year-old female presenting to [facility] on 07/15/2024. Patient reports about 3 days of nausea and vomiting and abdominal pain. She has had minimal diarrhea. She lives alone has not been around anyone sick or traveled. She denies any chest pain shortness of breath or fever. ER evaluation demonstrated mild tachycardia, sinus. She was found to have low potassium at 2.6, hemoglobin of 16, BUN of 43 and creatinine of 1.08 as well as hyponatremia and low chloride. Lipase negative, troponin negative. CT scan of abdomen demonstrated esophagitis, diverticulosis, nonobstructing supraumbilical hernia and fatty liver. The patient does not take medications has no medical conditions diagnosed. He reports poor intake accordingly. Quad viral screen negative. Subjective Date/time seen: 07/16/24 12:49 Interval history: Patient denies palpitations, abdominal pain, nausea, vomiting, or diarrhea. Patient reports feeling. Patient reports that she is feeling better and tolerating clear liquid diet. Review of Systems Review of Systems: All systems reviewed & are unremarkable except as noted in HPI and below Exam Const: General: comfortable and no acute distress Resp: Effort & Inspection: normal respiratory effort Auscultation: clear to auscultation bilaterally Cardio: Rate: regular rate Rhythm: regular rhythm Other: Telemetry- SR 75. GI: GI Palp: Yes Soft to palpation Auscultation: normal bowel sounds Neuro: Speech: normal speech Extrem: General: no pedal edema Psych: Mental Status: mental status grossly normal Affect: normal affect Objective Data Vital Signs Vital Signs: Vital Signs - 24 hr 07/15/24 18:46 07/15/24 18:49 07/15/24 20:27 Temperature 98.2 F 98.5 F Pulse Rate 107 H 67 72 Respiratory Rate 14 18 14 Blood Pressure 106/85 118/67 129/82 Pulse Oximetry 96 99 97 Oxygen Delivery Room Air 07/15/24 22:45 07/15/24 22:46 07/15/24 22:52 Temperature 98.5 F 98.5 F Pulse Rate 74 83 Respiratory Rate 18 18 Blood Pressure 122/70 113/70 Pulse Oximetry 100 100 Oxygen Delivery Room Air 07/16/24 00:00 07/16/24 03:51 07/16/24 04:00 Temperature 98.7 F Pulse Rate 77 76 80 Respiratory Rate 18 Blood Pressure 116/63 Pulse Oximetry 94 Oxygen Delivery Intake/Output Intake/Output: Intake & Output 07/13/24 07/14/24 07/15/24 07/16/24 23:59 23:59 23:59 23:59 Intake Total 2049 92 Balance 2049 92 Meds/Results Medications: Active Medications Generic Name Dose Route Start Last Admin Trade Name Freq PRN Reason Stop Dose Admin Acetaminophen 650 mg 07/15/24 21:20 07/16/24 09:58 Acetaminophen 325 Mg Tablet PO 650 mg Q4H PRN Administration Mild Pain (1-3) or Fever Sodium Chloride 1,000 mls @ 125 mls/hr 07/15/24 21:20 07/16/24 00:41 Normal Saline Iv IV CONT 125 mls/hr .Q8H JOE Administration Metoclopramide HCl 5 mg 07/15/24 21:26 Metoclopramide Hcl Inj 10 Mg/2 Ml Vial IV PUSH Q6H PRN Vomiting Ondansetron HCl 4 mg 07/16/24 08:09 Ondansetron Inj 4 Mg/2 Ml Vial IV PUSH Q6H PRN Nausea And Vomiting Pantoprazole Sodium 40 mg 07/16/24 09:00 07/16/24 09:48 Pantoprazole Sodium Iv 40 Mg Vial IV PUSH 40 mg QAM JOE Administration Radiology Results: ITS Impressions Abdomen/Pelvis CT 07/15/24 19:48 IMPRESSION: Findings within the distal esophagus for which esophagitis is suspected. Colonic diverticulosis. Small bowel containing, nonobstructing, supraumbilical hernia. Fatty infiltration of the liver. Labs Labs: Laboratory Results - last 24 hr 07/15/24 07/15/24 07/15/24 18:57 18:57 18:57 WBC 12.5 H RBC 4.64 Hgb 16.0 H Hct 45.4 MCV 97.8 MCH 34.5 H MCHC 35.2 RDW 13.4 Plt Count 182 MPV 11.9 H Immature Gran % (Auto) 0.5 Neut % (Auto) 77.0 H Lymph % (Auto) 9.4 L Bill[place] % (Auto) 12.9 H Eos % (Auto) 0.1 Baso % (Auto) 0.1 L Lymph # (Auto) 1.18 Billings # (Auto) 1.6 H Eos # (Auto) 0.0 Baso # (Auto) 0.0 Abs Immat Gran (auto) 0.06 H Absolute Neuts (auto) 9.7 H Absolute Nucleated RBC 0.020 H Nucleated RBC % 0.2 % Immature Plt Fraction Sodium Cancelled 127 L Potassium Cancelled 2.6 L* Chloride Cancelled Carbon Dioxide Anion Gap BUN Creatinine Estim Creat Clear Calc Estimated GFR Glucose Lactic Acid Calcium Magnesium Total Bilirubin AST ALT Alkaline Phosphatase Troponin I Total Protein Albumin Lipase Urine Color Urine Appearance Urine pH Ur Specific Martin Urine Protein Urine Glucose (UA) Urine Ketones Ur Blood (Man) Urine Nitrate Urine Bilirubin Urine Urobilinogen Leukocyte Esterase Rfl Urine RBC Urine WBC Ur Squamous Epith Cells Urine Bacteria Urine Casts Influenza A (RT-PCR) Influenza B (RT-PCR) RSV (RT-PCR) SARS-CoV-2 RNA (RT-PCR) 07/15/24 07/15/24 07/15/24 18:57 18:57 18:57 WBC RBC Hgb Hct MCV MCH MCHC RDW Plt Count MPV Immature Gran % (Auto) Neut % (Auto) Lymph % (Auto) Bill[place] % (Auto) Eos % (Auto) Baso % (Auto) Lymph # (Auto) Bill[place] # (Auto) Eos # (Auto) Baso # (Auto) Abs Immat Gran (auto) Absolute Neuts (auto) Absolute Nucleated RBC Nucleated RBC % % Immature Plt Fraction Sodium Potassium Chloride 71 L Carbon Dioxide Cancelled 36 H Anion Gap Cancelled 20 H BUN Cancelled Creatinine Estim Creat Clear Calc Estimated GFR Glucose Lactic Acid Calcium Magnesium Total Bilirubin AST ALT Alkaline Phosphatase Troponin I Total Protein Albumin Lipase Urine Color Urine Appearance Urine pH Ur Specific Martin Urine Protein Urine Glucose (UA) Urine Ketones Ur Blood (Man) Urine Nitrate Urine Bilirubin Urine Urobilinogen Leukocyte Esterase Rfl Urine RBC Urine WBC Ur Squamous Epith Cells Urine Bacteria Urine Casts Influenza A (RT-PCR) Influenza B (RT-PCR) RSV (RT-PCR) SARS-CoV-2 RNA (RT-PCR) 07/15/24 07/15/24 07/15/24 18:57 18:57 18:57 WBC RBC Hgb Hct MCV MCH MCHC RDW Plt Count MPV Immature Gran % (Auto) Neut % (Auto) Lymph % (Auto) Bill[place] % (Auto) Eos % (Auto) Baso % (Auto) Lymph # (Auto) Bill[place] # (Auto) Eos # (Auto) Baso # (Auto) Abs Immat Gran (auto) Absolute Neuts (auto) Absolute Nucleated RBC Nucleated RBC % % Immature Plt Fraction Sodium Potassium Chloride Carbon Dioxide Anion Gap BUN 43 H Creatinine Cancelled 1.08 H Estim Creat Clear Calc Cancelled Not Reportable Estimated GFR Cancelled Glucose Lactic Acid Calcium Magnesium Total Bilirubin AST ALT Alkaline Phosphatase Troponin I Total Protein Albumin Lipase Urine Color Urine Appearance Urine pH Ur Specific Martin Urine Protein Urine Glucose (UA) Urine Ketones Ur Blood (Man) Urine Nitrate Urine Bilirubin Urine Urobilinogen Leukocyte Esterase Rfl Urine RBC Urine WBC Ur Squamous Epith Cells Urine Bacteria Urine Casts Influenza A (RT-PCR) Influenza B (RT-PCR) RSV (RT-PCR) SARS-CoV-2 RNA (RT-PCR) 07/15/24 07/15/24 07/15/24 18:57 18:57 18:57 WBC RBC Hgb Hct MCV MCH MCHC RDW Plt Count MPV Immature Gran % (Auto) Neut % (Auto) Lymph % (Auto) [place] % (Auto) Eos % (Auto) Baso % (Auto) Lymph # (Auto) [place] # (Auto) Eos # (Auto) Baso # (Auto) Abs Immat Gran (auto) Absolute Neuts (auto) Absolute Nucleated RBC Nucleated RBC % % Immature Plt Fraction Sodium Potassium Chloride Carbon Dioxide Anion Gap BUN Creatinine Estim Creat Clear Calc Estimated GFR 52 L Glucose Cancelled 142 H Lactic Acid Calcium Cancelled 9.3 Magnesium 2.7 H Total Bilirubin Cancelled AST ALT Alkaline Phosphatase Troponin I Total Protein Albumin Lipase Urine Color Urine Appearance Urine pH Ur Specific Martin Urine Protein Urine Glucose (UA) Urine Ketones Ur Blood (Man) Urine Nitrate Urine Bilirubin Urine Urobilinogen Leukocyte Esterase Rfl Urine RBC Urine WBC Ur Squamous Epith Cells Urine Bacteria Urine Casts Influenza A (RT-PCR) Influenza B (RT-PCR) RSV (RT-PCR) SARS-CoV-2 RNA (RT-PCR) 07/15/24 07/15/24 07/15/24 18:57 18:57 18:57 WBC RBC Hgb Hct MCV MCH MCHC RDW Plt Count MPV Immature Gran % (Auto) Neut % (Auto) Lymph % (Auto) Bill[place] % (Auto) Eos % (Auto) Baso % (Auto) Lymph # (Auto) Bill[place] # (Auto) Eos # (Auto) Baso # (Auto) Abs Immat Gran (auto) Absolute Neuts (auto) Absolute Nucleated RBC Nucleated RBC % % Immature Plt Fraction Sodium Potassium Chloride Carbon Dioxide Anion Gap BUN Creatinine Estim Creat Clear Calc Estimated GFR Glucose Lactic Acid Calcium Magnesium Total Bilirubin 6.5 H AST Cancelled 115 H ALT Cancelled 102 H Alkaline Phosphatase Cancelled Troponin I Total Protein Albumin Lipase Urine Color Urine Appearance Urine pH Ur Specific Martin Urine Protein Urine Glucose (UA) Urine Ketones Ur Blood (Man) Urine Nitrate Urine Bilirubin Urine Urobilinogen Leukocyte Esterase Rfl Urine RBC Urine WBC Ur Squamous Epith Cells Urine Bacteria Urine Casts Influenza A (RT-PCR) Influenza B (RT-PCR) RSV (RT-PCR) SARS-CoV-2 RNA (RT-PCR) 07/15/24 07/15/24 07/15/24 18:57 18:57 18:57 WBC RBC Hgb Hct MCV MCH MCHC RDW Plt Count MPV Immature Gran % (Auto) Neut % (Auto) Lymph % (Auto) [place] % (Auto) Eos % (Auto) Baso % (Auto) Lymph # (Auto) [place] # (Auto) Eos # (Auto) Baso # (Auto) Abs Immat Gran (auto) Absolute Neuts (auto) Absolute Nucleated RBC Nucleated RBC % % Immature Plt Fraction Sodium Potassium Chloride Carbon Dioxide Anion Gap BUN Creatinine Estim Creat Clear Calc Estimated GFR Glucose Lactic Acid Calcium Magnesium Total Bilirubin AST ALT Alkaline Phosphatase 144 H Troponin I < 0.012 Total Protein Cancelled 9.0 H Albumin Cancelled 4.9 Lipase Cancelled Urine Color Urine Appearance Urine pH Ur Specific Martin Urine Protein Urine Glucose (UA) Urine Ketones Ur Blood (Man) Urine Nitrate Urine Bilirubin Urine Urobilinogen Leukocyte Esterase Rfl Urine RBC Urine WBC Ur Squamous Epith Cells Urine Bacteria Urine Casts Influenza A (RT-PCR) Influenza B (RT-PCR) RSV (RT-PCR) SARS-CoV-2 RNA (RT-PCR) 07/15/24 07/15/24 07/16/24 18:57 20:18 00:49 WBC RBC Hgb Hct MCV MCH MCHC RDW Plt Count MPV Immature Gran % (Auto) Neut % (Auto) Lymph % (Auto) Bill[place] % (Auto) Eos % (Auto) Baso % (Auto) Lymph # (Auto) [place] # (Auto) Eos # (Auto) Baso # (Auto) Abs Immat Gran (auto) Absolute Neuts (auto) Absolute Nucleated RBC Nucleated RBC % % Immature Plt Fraction Sodium Potassium Chloride Carbon Dioxide Anion Gap BUN Creatinine Estim Creat Clear Calc Estimated GFR Glucose Lactic Acid 1.7 Calcium Magnesium Total Bilirubin AST ALT Alkaline Phosphatase Troponin I Total Protein Albumin Lipase 75 Urine Color Yellow Urine Appearance Clear Urine pH 6.5 Ur Specific Martin > 1.045 H Urine Protein Trace Urine Glucose (UA) Negative Urine Ketones 1+ H Ur Blood (Man) 1+ H Urine Nitrate Negative Urine Bilirubin Negative Urine Urobilinogen 1.0 Leukocyte Esterase Rfl Negative Urine RBC 6-10 H Urine WBC 0-5 Ur Squamous Epith Cells Few Urine Bacteria Rare Urine Casts 3-5 Influenza A (RT-PCR) Negative Influenza B (RT-PCR) Negative RSV (RT-PCR) Negative SARS-CoV-2 RNA (RT-PCR) Negative 07/16/24 07/16/24 07/16/24 02:10 02:33 07:17 WBC 11.7 H 8.4 RBC 3.73 L 3.56 L Hgb 12.9 D 12.2 Hct 38.0 36.3 L MCV 101.9 H 102.0 H MCH 34.6 H 34.3 H MCHC 33.9 33.6 RDW 13.6 13.5 Plt Count 138 L 129 L MPV 11.6 H 11.4 H Immature Gran % (Auto) 0.6 H 0.7 H Neut % (Auto) 74.3 H 67.9 Lymph % (Auto) 13.5 L 15.6 L Bill[place] % (Auto) 11.4 H 13.4 H Eos % (Auto) 0.0 2.3 Baso % (Auto) 0.2 0.1 L Lymph # (Auto) 1.58 1.31 Billings # (Auto) 1.3 H 1.1 H Eos # (Auto) 0.0 0.2 Baso # (Auto) 0.0 0.0 Abs Immat Gran (auto) 0.07 H 0.06 H Absolute Neuts (auto) 8.7 H 5.7 Absolute Nucleated RBC 0.030 H 0.030 H Nucleated RBC % 0.3 H 0.4 H % Immature Plt Fraction 12.0 H 11.0 Sodium 126 L 128 L Potassium 3.0 L 3.6 Chloride 87 L 89 L Carbon Dioxide 30 31 H Anion Gap 9 8 BUN 21 H D 15 D Creatinine 0.63 L 0.55 L Estim Creat Clear Calc Not Reportable Not Reportable Estimated GFR > 60 > 60 Glucose 123 H 110 Lactic Acid Calcium 7.5 L 7.8 L Magnesium 2.7 H Total Bilirubin 5.0 H AST 96 H ALT 71 H Alkaline Phosphatase 91 Troponin I Total Protein 6.0 L Albumin 3.3 L Lipase Urine Color Urine Appearance Urine pH Ur Specific Martin Urine Protein Urine Glucose (UA) Urine Ketones Ur Blood (Man) Urine Nitrate Urine Bilirubin Urine Urobilinogen Leukocyte Esterase Rfl Urine RBC Urine WBC Ur Squamous Epith Cells Urine Bacteria Urine Casts Influenza A (RT-PCR) Influenza B (RT-PCR) RSV (RT-PCR) SARS-CoV-2 RNA (RT-PCR) Quality VTE Prophylaxis VTE prophylaxis: mechanical ordered
[2024-07-16] MEDS: SODIUM CHLORIDE 0.9% IV 1,000 ML 75 ML IV CONT (13:55)
[2024-07-17] VITALS (9 sets, daily range): BP systolic 100–113; BP diastolic 59–65; PULSE 67–79; RESP 12–20; TEMP 36.6–36.8; O2SAT 93–96
[2024-07-17] MEDS: SODIUM CHLORIDE 0.9% IV 1,000 ML 75 ML IV CONT ×2 (03:36→17:10)
[2024-07-17 05:36] LABS: Basophils Percent Auto 0.2 % (0.2-1.2); Eosinophils Absolute Auto 0.1 K/mm3 (0-0.3); Eosinophils Percent Auto 1.2 % (0-4.4); Hematocrit 38.2 % (37.0-47.0); Hemoglobin 12.3 g/dL (12.0-15.0); Immature Granulocyte Absolute 0.02 K/mm3 (0.00-0.031); Immature Granulocyte Percent A 0.4 % (0-0.5); Lymphocytes Absolute Auto 1.44 K/mm3 (0.9-3.2); Lymphocytes Percent Auto 29.4 % (18.3-44.2); Mean Corpuscular HGB Conc 32.2 g/dl (32-36); Mean Corpuscular Hemoglobin 34.6 pg (26-34); Mean Corpuscular Volume 107.3 fl (80-100); Monocytes Absolute Auto 0.6 K/mm3 (0.1-0.6); Monocytes Percent Auto 12.2 % (2.6-8.5); Neutrophils Absolute Auto 2.8 K/mm3 (1.3-6.7); Neutrophils Percent Auto 56.6 % (45.5-73.1); Nucleated Red Blood Cells Perc 0.4 % (0.0-0.2); Platelet Count Result 121 k/mm3 (150-375); Red Blood Count 3.56 M/mm3 (4.2-5.4); Red Cell Distribution Width 13.4 % (11.5-14.5); White Blood Count 4.9 K/mm3 (4.5-10.0)
[2024-07-17 05:57] LABS: Macrocytosis 1+ (NORMAL); Platelet Estimate Adequate (Adequate); Schistocytes None Seen
[2024-07-17 06:05] LABS: Alanine Aminotransferase 62 U/L (6-35); Albumin Level 3.3 g/dL (3.5-5.1); Alkaline Phosphatase 77 U/L (38-126); Anion Gap 3 mmol/L (4-12); Aspartate Amino Transferase 107 U/L (14-36); Bilirubin,Total 3.3 mg/dL (0.2-1.3); Blood Urea Nitrogen 6 mg/dL (7-17); Calcium 8.2 mg/dL (8.4-10.2); Carbon Dioxide 38 mmol/L (22-30); Chloride 95 mmol/L (98-107); Estimated Glomerular Filt Rate > 60; Glucose 119 mg/dL (65-110); Potassium 3.4 mmol/L (3.4-5.0); Sodium 136 mmol/L (137-145)
[2024-07-17] MEDS: PANTOPRAZOLE SODIUM IV 40 MG VIAL IV PUSH ×2 (08:25→20:13)
[2024-07-17] MEDS: POTASSIUM CHLORIDE 20 MEQ ER TABLET 40 MEQ PO (08:25)
--- NOTE | 2024-07-17 10:08 | P.PNIM_ITS ---
Progress Note: A&P Assessment and Plan (1) Nausea & vomiting: Code(s): R11.2 - Nausea with vomiting, unspecified Status: Acute Assessment and Plan: * Subsided. * Ondansetron 4 mg ivp q 6 PRN. * Regular diet with Ensure Enlive BID. (2) Esophagitis: Code(s): K20.90 - Esophagitis, unspecified without bleeding Status: Acute Assessment and Plan: * CT showed distal esophagus for which esophagitis is suspected. * Increase Pantoprazole 40 mg ivp q 12. * Add Magic Mouth Wash. (3) Acute prerenal azotemia: Code(s): N19 - Unspecified kidney failure Status: Acute Assessment and Plan: * Total Bilirubin improving. 6.5>5.0>3.3. * Continue to trend. (4) Acute hypokalemia: Code(s): E87.6 - Hypokalemia Status: Acute Assessment and Plan: * Potassium 2.6>3.0>3.6>3.4. * Give Potassium Chloride 40 meq PO x 1. * Continue to trend. (5) Acute dehydration: Code(s): E86.0 - Dehydration Status: Acute Assessment and Plan: * Tolerating clear liquids. * NS @ 75 ml/hr. (6) Transaminitis: Code(s): R74.01 - Elevation of levels of liver transaminase levels Status: Acute Assessment and Plan: * AST 115>96>107. * ALT 102>71>62. * Alk phos 144>91>77. * Continue to trend. (7) Elevated serum creatinine: Code(s): R79.89 - Other specified abnormal findings of blood chemistry Status: Acute Assessment and Plan: * Creatinine improved from 1.08>0.63>0.55>0.60. * Continue to trend. (8) Hyponatremia: Code(s): E87.1 - Hypo-osmolality and hyponatremia Status: Acute Assessment and Plan: * Sodium improving from 126>128>136. * NS @ 75 ml/hr. * Continue to trend. Plan This is a pleasant 59-year-old female presenting to [facility] on 07/15/2024. Patient reports about 3 days of nausea and vomiting and abdominal pain. She has had minimal diarrhea. She lives alone has not been around anyone sick or traveled. She denies any chest pain shortness of breath or fever. ER evaluation demonstrated mild tachycardia, sinus. She was found to have low potassium at 2.6, hemoglobin of 16, BUN of 43 and creatinine of 1.08 as well as hyponatremia and low chloride. Lipase negative, troponin negative. CT scan of abdomen demonstrated esophagitis, diverticulosis, nonobstructing supraumbilical hernia and fatty liver. The patient does not take medications has no medical conditions diagnosed. He reports poor intake accordingly. Quad viral screen negative. Subjective Date/time seen: 07/17/24 10:08 Interval history: Patient reports throat hurts to swallow. Pain in throat is a 10, frequent, and burning. Patient denies chest pain, palpitations, headache, dizziness, nausea, or vomiting. Review of Systems Review of Systems: All systems reviewed & are unremarkable except as noted in HPI and below Exam Const: General: no acute distress and uncomfortable Resp: Effort & Inspection: normal respiratory effort Auscultation: clear to auscultation bilaterally Cardio: Rate: regular rate Rhythm: regular rhythm Other: Telemetry- SR 81. GI: GI Palp: Yes Soft to palpation Auscultation: normal bowel sounds Neuro: Speech: normal speech Extrem: General: no pedal edema Psych: Mental Status: mental status grossly normal Affect: normal affect Objective Data Vital Signs Vital Signs: Vital Signs - 24 hr 07/16/24 12:00 07/16/24 14:00 07/16/24 16:00 Temperature 97.7 F Pulse Rate 79 74 71 Respiratory Rate 18 Blood Pressure 120/74 Pulse Oximetry 98 Oxygen Delivery Fraction of Inspired Oxygen 07/16/24 20:00 07/16/24 20:30 07/16/24 20:42 Temperature 98.6 F Pulse Rate 72 80 65 Respiratory Rate 20 20 Blood Pressure 100/59 L Pulse Oximetry 95 91 Oxygen Delivery Room Air Fraction of Inspired Oxygen 07/17/24 00:00 07/17/24 04:00 07/17/24 05:06 Temperature 97.8 F Pulse Rate 70 68 68 Respiratory Rate 20 Blood Pressure 113/63 Pulse Oximetry 93 Oxygen Delivery Fraction of Inspired Oxygen Intake/Output Intake/Output: Intake & Output 07/14/24 07/15/24 07/16/24 07/17/24 23:59 23:59 23:59 23:59 Intake Total 2049 2390 1740 Output Total 200 700 Balance 2049 2190 1040 Meds/Results Medications: Active Medications Generic Name Dose Route Start Last Admin Trade Name Freq PRN Reason Stop Dose Admin Acetaminophen 650 mg 07/15/24 21:20 07/16/24 09:58 Acetaminophen 325 Mg Tablet PO 650 mg Q4H PRN Administration Mild Pain (1-3) or Fever Sodium Chloride 1,000 mls @ 75 mls/hr 07/15/24 21:20 07/17/24 03:36 Normal Saline Iv IV CONT 75 mls/hr .[id number] JOE Administration Metoclopramide HCl 5 mg 07/15/24 21:26 Metoclopramide Hcl Inj 10 Mg/2 Ml Vial IV PUSH Q6H PRN Vomiting Ondansetron HCl 4 mg 07/16/24 08:09 Ondansetron Inj 4 Mg/2 Ml Vial IV PUSH Q6H PRN Nausea And Vomiting Pantoprazole Sodium 40 mg 07/16/24 09:00 07/17/24 08:25 Pantoprazole Sodium Iv 40 Mg Vial IV PUSH 40 mg QAM JOE Administration Radiology Results: ITS Impressions Abdomen/Pelvis CT 07/15/24 19:48 IMPRESSION: Findings within the distal esophagus for which esophagitis is suspected. Colonic diverticulosis. Small bowel containing, nonobstructing, supraumbilical hernia. Fatty infiltration of the liver. Labs Labs: Laboratory Results - last 24 hr 07/17/24 05:25 WBC 4.9 RBC 3.56 L Hgb 12.3 Hct 38.2 MCV 107.3 H D MCH 34.6 H MCHC 32.2 RDW 13.4 Plt Count 121 L MPV 12.0 H Immature Gran % (Auto) 0.4 Neut % (Auto) 56.6 Lymph % (Auto) 29.4 [place] % (Auto) 12.2 H Eos % (Auto) 1.2 Baso % (Auto) 0.2 Lymph # (Auto) 1.44 [place] # (Auto) 0.6 Eos # (Auto) 0.1 Baso # (Auto) 0.0 Abs Immat Gran (auto) 0.02 Absolute Neuts (auto) 2.8 Absolute Nucleated RBC 0.020 H Band Neutrophils % Not Reportable Nucleated RBC % 0.4 H Platelet Estimate Adequate Macrocytosis 1+ Schistocytes None seen Sodium 136 L Potassium 3.4 Chloride 95 L Carbon Dioxide 38 H Anion Gap 3 L BUN 6 L D Creatinine 0.60 L Estim Creat Clear Calc Not Reportable Estimated GFR > 60 Glucose 119 H Calcium 8.2 L Total Bilirubin 3.3 H AST 107 H ALT 62 H Alkaline Phosphatase 77 Total Protein 6.0 L Albumin 3.3 L Quality VTE Prophylaxis VTE prophylaxis: mechanical ordered
[2024-07-17] MEDS: LIDOCAINE 2% VISC SOLN 30 ML, ALUMINUM/MAGNESIUM/SIMETH SUSP 30 ML, diphenhydrAMINE HCl... PO ×4 (11:23→20:12)
[2024-07-18] VITALS: PULSE 79
[2024-07-18 04:00] VITALS: PULSE 84
[2024-07-18 04:54] VITALS: BP 125/76; PULSE 82; RESP 12; TEMP 36.4; O2SAT 98
[2024-07-18] MEDS: LIDOCAINE 2% VISC SOLN 30 ML, ALUMINUM/MAGNESIUM/SIMETH SUSP 30 ML, diphenhydrAMINE HCl... PO ×2 (05:10→08:08)
[2024-07-18 05:16] LABS: Basophils Percent Auto 0.7 % (0.2-1.2); Eosinophils Absolute Auto 0.2 K/mm3 (0-0.3); Eosinophils Percent Auto 2.7 % (0-4.4); Hematocrit 35.5 % (37.0-47.0); Hemoglobin 11.7 g/dL (12.0-15.0); Immature Granulocyte Absolute 0.08 K/mm3 (0.00-0.031); Immature Granulocyte Percent A 1.3 % (0-0.5); Lymphocytes Percent Auto 23.5 % (18.3-44.2); Mean Corpuscular Hemoglobin 35.1 pg (26-34); Mean Corpuscular Volume 106.6 fl (80-100); Monocytes Absolute Auto 0.8 K/mm3 (0.1-0.6); Monocytes Percent Auto 12.9 % (2.6-8.5); Neutrophils Absolute Auto 3.5 K/mm3 (1.3-6.7); Neutrophils Percent Auto 58.9 % (45.5-73.1); Platelet Count Result 134 k/mm3 (150-375); Red Blood Count 3.33 M/mm3 (4.2-5.4); Red Cell Distribution Width 13.6 % (11.5-14.5)
[2024-07-18 05:31] LABS: Alanine Aminotransferase 58 U/L (6-35); Albumin Level 3.2 g/dL (3.5-5.1); Alkaline Phosphatase 76 U/L (38-126); Anion Gap 4 mmol/L (4-12); Aspartate Amino Transferase 80 U/L (14-36); Bilirubin,Total 1.3 mg/dL (0.2-1.3); Blood Urea Nitrogen 7 mg/dL (7-17); Calcium 8.3 mg/dL (8.4-10.2); Carbon Dioxide 30 mmol/L (22-30); Chloride 99 mmol/L (98-107); Estimated Glomerular Filt Rate > 60; Glucose 107 mg/dL (65-110); Potassium 3.1 mmol/L (3.4-5.0); Sodium 133 mmol/L (137-145)
[2024-07-18] MEDS: POTASSIUM CHLORIDE 20 MEQ ER TABLET 40 MEQ PO (08:07)
--- NOTE | 2024-07-18 10:19 | P.DS_ITS ---
DS: Admitting Diagnosis Discharge Date 07/18/24 Admitting Diagnosis Nausea/ Vomiting/ Diarrhea DS: Discharge Diagnosis Discharge Diagnosis (1) Acute hypokalemia: Code(s): E87.6 - Hypokalemia Status: Acute (2) Hyponatremia: Code(s): E87.1 - Hypo-osmolality and hyponatremia Status: Acute (3) Esophagitis: Code(s): K20.90 - Esophagitis, unspecified without bleeding Status: Acute (4) Transaminitis: Code(s): R74.01 - Elevation of levels of liver transaminase levels Status: Acute (5) Acute prerenal azotemia: Code(s): N19 - Unspecified kidney failure Status: Acute (6) Nausea & vomiting: Code(s): R11.2 - Nausea with vomiting, unspecified Status: Acute (7) Acute dehydration: Code(s): E86.0 - Dehydration Status: Acute (8) Elevated serum creatinine: Code(s): R79.89 - Other specified abnormal findings of blood chemistry Status: Acute DS: Summary Hospital Course Hospital Course: ER evaluation demonstrated mild tachycardia, sinus. She was found to have low potassium at 2.6, hemoglobin of 16, BUN of 43 and creatinine of 1.08 as well as hyponatremia and low chloride. Lipase negative, troponin negative. CT scan of abdomen demonstrated esophagitis, diverticulosis, nonobstructing supraumbilical hernia and fatty liver. Patients bilirubin, AST, ALT, alk phos, potassium, creatinine, and sodium improved. Patient given Pantoprazole and magic mouth wash. Patient able to tolerate oral intake. Patient to continue potassium supplementation given for discharge and to have lab checked. Status at Discharge Functional status at discharge: independent ambulation Overall status at discharge: patient is progressing back to baseline Time Spent with Patient Time attestation: Total time spent providing and/or coordinating discharge services: Time spent: Greater than 30 minutes Exam Const: General: comfortable and no acute distress Resp: Effort & Inspection: normal respiratory effort Auscultation: clear to auscultation bilaterally Cardio: Rate: regular rate Rhythm: regular rhythm Other: Telemetry- SR 77 GI: GI Palp: Yes Soft to palpation Auscultation: normal bowel sounds Neuro: General: gait normal Extrem: General: no pedal edema Psych: Mental Status: mental status grossly normal Affect: normal affect DS: Data Data Completed and Pending Labs on day of discharge: Labs from last 24 hours 07/18/24 04:42 WBC 6.0 RBC 3.33 L Hgb 11.7 L Hct 35.5 L MCV 106.6 H MCH 35.1 H MCHC 33.0 RDW 13.6 Plt Count 134 L MPV 12.0 H Immature Gran % (Auto) 1.3 H Neut % (Auto) 58.9 Lymph % (Auto) 23.5 [place] % (Auto) 12.9 H Eos % (Auto) 2.7 Baso % (Auto) 0.7 Lymph # (Auto) 1.40 [place] # (Auto) 0.8 H Eos # (Auto) 0.2 Baso # (Auto) 0.0 Abs Immat Gran (auto) 0.08 H Absolute Neuts (auto) 3.5 Absolute Nucleated RBC 0.000 Nucleated RBC % 0.0 Sodium 133 L Potassium 3.1 L Chloride 99 Carbon Dioxide 30 Anion Gap 4 BUN 7 Creatinine 0.53 L Estim Creat Clear Calc Not Reportable Estimated GFR > 60 Glucose 107 Calcium 8.3 L Total Bilirubin 1.3 AST 80 H ALT 58 H Alkaline Phosphatase 76 Total Protein 6.0 L Albumin 3.2 L Discharge Plan Discharge Attending physician on discharge: Ayush Rodas Discharging Clinician: Melvi Correa Anticipated Discharge Date/Time: 07/18/24 11:00 Patient Disposition: Home Activity: may shower and as tolerated Diet: regular Discharge Instructions: * Take potassium as directed. * BMP lab draw on 07/23. * Report to provider if you develop diarrhea, vomiting, fever>101, or worsening pain in throat. Thank you for entrusting [facility] with your healthcare! Patient Instructions: Antibiotic Form, Hyponatremia (DC), Hypokalemia (DC), Pain Management (DC), GERD (Gastroesophageal Reflux Disease) (DC) Patient Language: Luxembourgish Stand Alone Forms: General Discharge Information Follow-up/Referrals: Ofe,Hernandez Morin MD [Primary Care Provider] - 1 Week Discharge Medications: New potassium chloride [Klor-Con M20] 20 mEq tablet,ER particles/crystals 20 meq PO DAILY Qty: 7 0RF pantoprazole 40 mg tablet,delayed release (DR/EC) 40 mg PO HS Qty: 30 0RF Other Ambulatory Orders: Basic Metabolic Panel (Routine) Timeframe: 20240723 Location: Determined by Patient Ordered By: Melvi Correa Date of admission: 07/16/24 10:05 Primary Care Provider: Ofe,Hernandez Morin Admitting Provider: Belinda Odonnell Attending physician on admission: Belinda Odonnell Condition: Stable Hospitalist MIPS Heart Failure (Exclusion) Patient has history of Heart Transplant or Left Ventricular Assistive Device?: No IF YES, STOP HERE Heart Failure (Qualifier) Patient has current or prior documentation of LVEF less than or equal to 40%, or mod/servere depressed LVSF?: No IF NO, STOP HERE
== END 2024-07-18 11:20 | disposition home or self-care (01) ==
LOC: ANHED 21:55 → ANH2MED 07-16 01:48
PROVIDERS: Nurse Practitioner Family; Admitting Provider General Practice; Emergency Provider Student in an Organized Health Care Education/Training Program; PCP Family Medicine; Visit Provider General Practice
DX: R11.2 Nausea with vomiting, unspecified (principal); R19.7 Diarrhea, unspecified; E87.6 Hypokalemia; E87.1 Hypo-osmolality and hyponatremia; E86.0 Dehydration; N19 Unspecified kidney failure; K20.90 Esophagitis, unspecified without bleeding; K57.30 Diverticulosis of large intestine without perforation or abscess without bleeding; K42.9 Umbilical hernia without obstruction or gangrene; K76.0 Fatty (change of) liver, not elsewhere classified; R74.01 Elevation of levels of liver transaminase levels; R79.89 Other specified abnormal findings of blood chemistry; Z20.822 Contact with and (suspected) exposure to COVID-19
CPT/HCPCS: 36415; 74177; 80048; 80053; 81001; 83605; 83690; 83735; 84484; 85025; 85055; 87637; 93005; 96361; 96365; 96366; 96367; 96375; 96376; 99285; A9270; G0378; J2405; J2470; J2765; J3475; J3480; J7030; J7040; Q9967

== ENCOUNTER 2024-09-03 18:56 | Emergency (ER) | payer BC, SELFPAY ==
--- NOTE | ~2024-09-03 | XR_ITS ---
XR chest 2V Ordering provider: Hector Phelps MD History: 59 years Female with . SHAILESH . Comparison: None. FINDINGS: MEDIASTINUM: The cardiac silhouette is not enlarged. LUNGS: No infiltrates, effusions or pneumothorax. OTHER: Healing fractures seen in the left sixth and seventh ribs. No free air under the diaphragm. De generative changes of the spine. IMPRESSION: No acute cardiopulmonary pathology. Healing ribs in the left hemithorax. Reviewed, dictated and finalized at location A.
--- NOTE | ~2024-09-03 | CT_ITS ---
CTA chest PE protocol Ordering provider: Hector Phelps MD History: 59 years Female with . sob, high dimer . Comparison: None. Technique: CT angiogram chest was performed following timed intravenous injection of contrast. Thin s lice axial images and reformatted coronal images were obtained. Three dimensional reformatted images of the chest were also obtained using a [employer] workstation. . Automated exposure control and iterati ve reconstruction technique were employed. The dose-length product was 254.97 mGy-cm. 100 mL Omnipaqu e 350 was given IV. Findings: PULMONARY ARTERIES: No pulmonary embolus. VISUALIZED THORACIC INLET: Normal. MEDIASTINUM: Aorta/coronary arteries: Mild atheromatous disease. Heart/other: The heart is not enlarged. Lymph nodes: No mediastinal or hilar adenopathy. LUNGS: No pulmonary nodules or masses. No infiltrates or effusions. No pneumothorax. Dependent atelectatic c hanges. Fat infiltration of the liver. Sliding hiatus hernia. VISUALIZED UPPER ABDOMEN: Sliding hiatus hernia. Fat infiltration of the liver. Otherwise, the visual ized upper abdomen is normal. MUSCULOSKELETAL: Soft tissues: The superficial soft tissues are normal. Bones: Age appropriate degenerative changes of the spine. Healing rib fractures are seen in the left seventh, eighth and ninth ribs. IMPRESSION: 1. No pulmonary embolism. 2. No acute cardiopulmonary pathology. 3. Fat infiltration of the liver. 4. Sliding hiatus hernia. Reviewed, dictated and finalized at location A.
[2024-09-03 18:59] VITALS: BP 131/80; PULSE 88; RESP 16; TEMP 36.8; O2SAT 98
--- OUTSIDE RECORDS SUMMARY | 2024-09-03 18:59 | XMS_ITS | Referral Summary ---
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 Gender Identity Not on file Sexual Orientation [...] 12:40 PM CDT Height 149.9 cm (4' 11) 06/25/2024 12:40 PM CDT Body Mass Index 29.29 06/25/2024 12:40 PM CDT Plan of Treatment Not on file Procedures Procedure Name Priority Date/Time Associated Diagnosis Comments POCT RAPID STREP Routine 06/25/2024 12:5 5 PM CDT Viral URI from Last 3 Months Results * POCT rapid strep A (06/25/2024 12:55 PM CDT) [facility] Signature Rapid Strep A, POC Negative Negative Swab 06/25/2024 12:5 5 PM CDT Ally Cohn NP POINT OF CARE TEST ORDERABLES Final Result from Last 3 Months Insurance [facility] ACCESS Care Teams Senior Manufacturing Technician Relationship Specialty Start Date End Date Unknown, Notinfile PCP - General 04/01/23
--- OUTSIDE RECORDS SUMMARY | 2024-09-03 18:59 | XMS_ITS | Clinical Summary ---
Author Organization [address] lt Address [address] [place] [address] [place] [address] Care Team Providers Care Networker Name Role Phone Unknown, Notinfile Primary Care [...] 12:45 PM CDT Office Visit 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
[2024-09-03 19:18] VITALS: BP 128/79; PULSE 65; RESP 18; O2SAT 100
--- NOTE | 2024-09-03 19:19 | ECG_ITS ---
Test Date: 2024-09-03 19:59:00 Measurements Intervals [place] Rate: 63 P: 44 ND: 151 QRS: -6 QRSD: 82 T: 46 QT: 406 QTc: 419 Interpretive Statements SINUS RHYTHM CONSIDER RIGHT VENTRICULAR CONDUCTION DELAY BORDERLINE ST ABNORMALITY- LATERAL LEADS BASELINE ARTIFACT- I, III, AVR, AVL BORDERLINE ECG Compared to ECG 07/15/2024 18:59:02 NO SIGNIFICANT CHANGE Electronically Signed On 09-04-2024 05:59:09 CDT by Alberto Bowman D.O.
[2024-09-03 19:22] VITALS: O2SAT 99
--- OUTSIDE RECORDS SUMMARY | 2024-09-03 19:38 | XMS_ITS | Clinical Summary ---
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
--- OUTSIDE RECORDS SUMMARY | 2024-09-03 19:38 | XMS_ITS | Referral Summary ---
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
[2024-09-03 19:45] LABS: Basophils Absolute Auto 0.1 K/mm3 (0.0-0.1); Basophils Percent Auto 1.3 % (0.2-1.2); Eosinophils Absolute Auto 0.1 K/mm3 (0-0.3); Eosinophils Percent Auto 1.3 % (0-4.4); Hematocrit 44.4 % (37.0-47.0); Immature Granulocyte Absolute 0.01 K/mm3 (0.00-0.031); Immature Granulocyte Percent A 0.3 % (0-0.5); Lymphocytes Percent Auto 47.7 % (18.3-44.2); Mean Corpuscular HGB Conc 33.8 g/dl (32-36); Mean Corpuscular Hemoglobin 34.5 pg (26-34); Mean Corpuscular Volume 102.1 fl (80-100); Mean Platelet Volume 10.3 fl (7.4-10.4); Monocytes Absolute Auto 0.5 K/mm3 (0.1-0.6); Monocytes Percent Auto 11.6 % (2.6-8.5); Neutrophils Absolute Auto 1.5 K/mm3 (1.3-6.7); Neutrophils Percent Auto 37.8 % (45.5-73.1); Platelet Count Result 198 k/mm3 (150-375); Red Blood Count 4.35 M/mm3 (4.2-5.4); Red Cell Distribution Width 13.7 % (11.5-14.5)
[2024-09-03 19:58] LABS: Alanine Aminotransferase 90 U/L (6-35); Albumin Level 4.3 g/dL (3.5-5.1); Alkaline Phosphatase 127 U/L (38-126); Anion Gap 15 mmol/L (4-12); Aspartate Amino Transferase 155 U/L (14-36); Blood Urea Nitrogen 6 mg/dL (7-17); Calcium 8.8 mg/dL (8.4-10.2); Carbon Dioxide 23 mmol/L (22-30); Chloride 100 mmol/L (98-107); Estimated Glomerular Filt Rate > 60; Glucose 84 mg/dL (65-110); Magnesium 1.8 mg/dL (1.6-2.3); Potassium 3.2 mmol/L (3.4-5.0); Sodium 138 mmol/L (137-145); Total Protein 7.5 g/dL (6.3-8.2)
[2024-09-03 20:03] LABS: Partial Thromboplastin Time 26.4 Seconds (22.3-36.8); Prothrombin Time 13.3 Seconds (11.1-14.7); Troponin I < 0.012 ng/mL (0.000-0.034)
--- NOTE | 2024-09-03 20:34 | ED.SOB ---
HPI - SOB/Dyspnea General Chief Complaint: Shortness of Breath/Dyspnea Stated Complaint: can't hardly breathe Time Seen by Provider: 09/03/24 19:19 History of Present Illness HPI Narrative: 59-year-old female presenting to the emergency department for difficulty in breathing. She states she has also had a fever chills, states that the difficulty in breathing started today but no associated chest pain or chest pressure. She states she is just having difficulty catching her breath. Recently admitted to the hospital several weeks ago for dehydration with hypokalemia and kidney injury. Patient states there are people sick at her office but no one sick in the household. Denies any abdominal pain, back pain, diarrhea nausea vomiting. No history of DVT or PE. No history of leg swelling. Related Data Allergies Allergy/AdvReac Type Severity Reaction Status Date / Time No Known Allergies Allergy Mild Verified 07/15/24 18:44 Review of Systems Review of Systems: As reviewed above in HPI PMFSH Family History Family History Other Unknown family medical history Social History Social History Smoking status: Never smoker Alcohol intake: current Drinks per week: 2 Substance use type: does not use Do You Feel Safe in your Home?: Yes Lack of Transportation: No Lack of Food: Never True Current Housing: I Have Housing Concerned About Future Housing: No Difficulty Paying Gas/Electric Bills: No Difficulty Paying for Meds: No Currently Unemployed: No Education: High School Diploma/GED Difficulty w/ Childcare or Family Care: No Spiritual care concerns: No Exam Narrative: GENERAL: [Well-appearing, well-nourished, and in no acute distress.] HEAD: [Normocephalic, atraumatic.] EYES: [PERRLA and EOMI.] ENT: Nares clear, no rhinorrhea or epistaxis. Mucous membranes moist. NECK: Supple. CHEST: [Clear to auscultation. No respiratory distress.] HEART: [Regular rate and rhythm]. No murmur heard. [Normal peripheral pulses.] ABDOMEN: [Soft, nondistended], [nontender], [No rigidity or guarding] EXTREMITIES: Normal range of motion. [No edema.] SKIN: Warm, dry, no rash. NEURO: [No focal deficits]. Alert and oriented [x3.] PSYCH: [Normal mood and affect.] Course Vital Signs Vital signs: Vital Signs Temperature 36.8 C 09/03/24 18:59 Pulse Rate 88 09/03/24 18:59 Respiratory Rate 16 09/03/24 18:59 Blood Pressure 131/80 09/03/24 18:59 Pulse Oximetry 98 09/03/24 18:59 Oxygen Delivery Room Air 09/03/24 18:59 Temperature 36.8 C 09/03/24 18:59 Pulse Rate 65 09/03/24 19:18 Respiratory Rate 18 09/03/24 19:18 Blood Pressure 128/79 09/03/24 19:18 Pulse Oximetry 99 09/03/24 19:22 Oxygen Delivery Room Air 09/03/24 19:22 MDM - SOB/Dyspnea MDM Narrative Medical decision making narrative: 59-year-old female presenting to the emergency room with difficulty in breathing. She has also been feeling upper respiratory symptoms including fever, chills and congestion for 2 days. Endorses sick contacts. Denies any chest pain, abdominal pain but states that is difficult to catch her breath. Denies any abdominal pain, chest pain, back pain. No leg swelling history of DVT. She has normal vital signs with any fever, hypoxia, tachypnea, tachycardia blood pressure elevation here. Patient was recently hospitalized several weeks ago for kidney injury, dehydration and hypokalemia. Workup ordered this time including CBC, CMP, PT, PTT, chest x-ray, troponin, D-dimer, viral panel. EKG ordered. Suspicion presently is for viral syndrome, viral illness, upper respiratory infection, pneumonia, bronchitis, pneumothorax, low suspicion ACS or thromboembolic event such as PE but her recent hospitalization does raise risk factor for this. Workup reveals no leukocytosis or anemia. Normal platelet count. Coag panel shows normal PT INR, normal PTT. D-dimer elevated 1.[address] angiography of the chest was ordered to further evaluate for potential pulmonary embolism although suspicion remains low. Electrolytes show some minor hypokalemia but not severe. Normal renal function. Normal glucose, LFTs around baseline. Negative troponin. Viral panel is pending. Chest x-ray shows no acute cardiopulmonary disease, healing left rib fractures in the hemithorax without any pneumothorax or hemothorax. EKG shows sinus rhythm, no ST segment elevations, depressions, isolated T-wave flattening in lead 3. CT angiography independent reviewed and do not appreciate any large pulmonary embolism. Pending full radiology read. I went and re-evaluated the patient who is expressing desire to go home and wants to leave against medical advice without the CT read. Patient signed AMA paperwork after we discussed with her at bedside and she will return with any new or worsening concerns. Medical Records Attestation: I reviewed the patient's medical records. Lab Data Attestation: I reviewed the patient's lab results. 09/03/24 19:33 09/03/24 19:33 Labs: Lab Results 09/03/24 09/03/24 Range/Units 19:33 19:57 WBC 4.0 L (4.5-10.0) K/mm3 RBC 4.35 (4.2-5.4) M/mm3 Hgb 15.0 D (12.0-15.0) g/dL Hct 44.4 (37.0-47.0) % MCV 102.1 H (80-100) fl MCH 34.5 H (26-34) pg MCHC 33.8 (32-36) g/dl RDW 13.7 (11.5-14.5) % Plt Count 198 (150-375) k/mm3 MPV 10.3 (7.4-10.4) fl Immature Gran % (Auto) 0.3 (0-0.5) % Neut % (Auto) 37.8 L (45.5-73.1) % Lymph % (Auto) 47.7 H (18.3-44.2) % [place] % (Auto) 11.6 H (2.6-8.5) % Eos % (Auto) 1.3 (0-4.4) % Baso % (Auto) 1.3 H (0.2-1.2) % Lymph # (Auto) 1.90 (0.9-3.2) K/mm3 [place] # (Auto) 0.5 (0.1-0.6) K/mm3 Eos # (Auto) 0.1 (0-0.3) K/mm3 Baso # (Auto) 0.1 (0.0-0.1) K/mm3 Abs Immat Gran (auto) 0.01 (0.00-0.031) K/mm3 Absolute Neuts (auto) 1.5 (1.3-6.7) K/mm3 Absolute Nucleated RBC 0.000 (0.0-0.012) K/mm3 Nucleated RBC % 0.0 (0.0-0.2) % PT 13.3 (11.1-14.7) Seconds INR 1.0 APTT 26.4 (22.3-36.8) Seconds D-Dimer 1.40 H (<0.48) ug/mL Sodium 138 (137-145) mmol/L Potassium 3.2 L (3.4-5.0) mmol/L Chloride 100 (98-107) mmol/L Carbon Dioxide 23 (22-30) mmol/L Anion Gap 15 H (4-12) mmol/L BUN 6 L (7-17) mg/dL Creatinine 0.68 L (0.7-1.0) mg/dL Estim Creat Clear Calc Not Reportable Estimated GFR > 60 (59 - ) Glucose 84 (65-110) mg/dL Calcium 8.8 (8.4-10.2) mg/dL Magnesium 1.8 (1.6-2.3) mg/dL Total Bilirubin 3.0 H (0.2-1.3) mg/dL AST 155 H (14-36) U/L ALT 90 H (6-35) U/L Alkaline Phosphatase 127 H (38-126) U/L Troponin I < 0.012 (0.000-0.034) ng/mL Total Protein 7.5 (6.3-8.2) g/dL Albumin 4.3 (3.5-5.1) g/dL Influenza A (RT-PCR) Negative (Negative) Influenza B (RT-PCR) Negative (Negative) RSV (RT-PCR) Negative (Negative) SARS-CoV-2 RNA (RT-PCR) Negative (Negative) Imaging Data Attestation: I personally reviewed and interpreted this imaging study as follows: My impression: Impressions Chest X-Ray 09/03/24 19:49 IMPRESSION: No acute cardiopulmonary pathology. Healing ribs in the left hemithorax. Discharge Plan Discharge Clinical Impression: Shortness of breath, Acute viral syndrome, Upper respiratory infection, viral Patient Disposition: Left Against Medical Advice Condition: Stable Instructions: Upper Respiratory Infection (ED) Additional Instructions: Follow-up with your regular primary care provider, take [id number] decongestants and Tylenol and ibuprofen. Return with any worsening or new concerns. Patient Language: Kiswahili Prescriptions: No Action potassium chloride [Klor-Con M20] 20 mEq tablet,ER particles/crystals 20 meq PO DAILY Qty: 7 0RF pantoprazole 40 mg tablet,delayed release (DR/EC) 40 mg PO HS Qty: 30 0RF Follow-up/Referrals: Ofe,Hernandez Morin MD [Primary Care Provider] -
[2024-09-03 20:53] LABS: Influenza A QL RT-PCR Negative (Negative); Influenza B QL RT-PCR Negative (Negative); RSV RNA, RT-PCR Negative (Negative); SARS-CoV-2 RNA PCR Negative (Negative)
== END 2024-09-03 22:57 | disposition left against medical advice (07) ==
PROVIDERS: Emergency Provider Student in an Organized Health Care Education/Training Program; PCP Family Medicine
DX: J06.9 Acute upper respiratory infection, unspecified (principal); B34.9 Viral infection, unspecified; R06.02 Shortness of breath; R94.31 Abnormal electrocardiogram [ECG] [EKG]
CPT/HCPCS: 36415; 71046; 71275; 80053; 83735; 84484; 85025; 85380; 85610; 85730; 87637; 93005; 99284; Q9967

== ENCOUNTER 2024-09-05 09:21 | Emergency (ER) | payer BC, SELFPAY ==
--- NOTE | ~2024-09-05 | CT_ITS ---
EXAMINATION: CT abdomen pelvis w con DATE: 09/05/2024 11:29 INDICATION: Nausea and vomiting. Elevated liver function tests. TECHNIQUE: Computed tomography (CT) of the head was performed with 100 cc Omnipaque 350 intravenous c ontrast. The dose-length product was 262.72 mGy-cm. Automated exposure control and iterative reconstr uction technique were employed. COMPARISON: CT dated 07/15/2024 FINDINGS: Lung bases unremarkable. No significant pleural or pericardial effusion. Small hiatal herni a. Fatty infiltration of the liver. Small fat-containing umbilical hernia. Colonic diverticulosis wit hout evidence for diverticulitis. The spleen, pancreas, adrenal glands and kidneys are unremarkable. Normal appendix. Nonobstructive allegra wel gas pattern. Colonic diverticulosis without evidence for diverticulitis. No acute osseous abnorma lity. IMPRESSION: 1. No acute abdominal abnormality. 2: Fatty infiltration of the liver. 3: Small hiatal hernia. Reviewed, dictated and finalized at location B.
--- OUTSIDE RECORDS SUMMARY | 2024-09-05 09:25 | XMS_ITS | Clinical Summary ---
Author Organization [address] lt Address [address] [place] [address] [place] [address] Care Team Providers Care Junior Architect Name Role Phone Unknown, Notinfile Primary Care [...] Description 06/25/2024 12:45 PM CDT Office Visit [facility] at [address] [place] [address] Ally Cohn NP Viral URI (Primary Dx) from Last 3 Months Social History Tobacco Use Types Packs/Day Years Used Date Smoking Tobacco: Never Assessed Comments No Sex and Gender Information Value Date Recorded Sex Assigned at Not on file 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
--- OUTSIDE RECORDS SUMMARY | 2024-09-05 09:25 | XMS_ITS | Referral Summary ---
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
[2024-09-05 09:41] VITALS: BP 127/78; PULSE 92; RESP 16; TEMP 36.6; O2SAT 97
[2024-09-05 10:00] VITALS: BP 129/64; PULSE 78; RESP 16; TEMP 36.4; O2SAT 98
--- NOTE | 2024-09-05 10:06 | ED_ITS ---
HPI - Abdominal Pain General Chief Complaint: Abdominal Pain Stated Complaint: vomiting x 3 days Time Seen by Provider: 09/05/24 09:27 Source: patient Mode of arrival: ambulatory Limitations: no limitations History of Present Illness HPI narrative: Patient is a 59-year-old female who presents the ED with report of nausea and vomiting. Patient reports she has had persistent nausea and vomiting for the past 2 days. She was seen in the ED here on 09/03 for shortness of breath and states the symptoms began the night. States she is unable to keep down any food or drink. Is now feeling very weak. Does still feel nauseous. Reports mild diarrhea. Denies rectal bleeding or melena. Denies abdominal pain. Denies fevers. Reports mild cough. Denies sick contacts or bad food exposure. Related Data Allergies Allergy/AdvReac Type Severity Reaction Status Date / Time No Known Allergies Allergy Mild Verified 09/05/24 09:23 Review of Systems 2 Review of Systems: All systems reviewed & are unremarkable except as noted in HPI. All systems reviewed & are unremarkable except as noted in HPI and below PMFSH Family History Family History Other Unknown family medical history Social History Social History Smoking status: Never smoker Alcohol intake: current Drinks per week: 2 Substance use type: does not use Do You Feel Safe in your Home?: Yes Lack of Transportation: No Lack of Food: Never True Current Housing: I Have Housing Concerned About Future Housing: No Difficulty Paying Gas/Electric Bills: No Difficulty Paying for Meds: No Currently Unemployed: No Education: High School Diploma/GED Difficulty w/ Childcare or Family Care: No Spiritual care concerns: No Exam 2 Narrative: GENERAL: Mildly uncomfortable appearing, well-nourished, non-toxic, in no acute distress. HEAD: Normocephalic, atraumatic. RESPIRATORY: Airway patent, respirations nonlabored. Clear to auscultation bilaterally, no rales, rhonchi, wheezing. CARDIOVASCULAR: Regular rate and rhythm without murmurs, rubs, or gallops. ABDOMINAL: Soft, no significant tenderness, nondistended. Normoactive BS. MUSCULOSKELETAL: Moves all extremities. No gross deformities. SKIN: Warm, dry, normal color. NEURO: A&O X3. Speech clear. PSYCHIATRIC: Appropriate mood and affect. Normal interaction. Course Vital Signs Vital signs: Vital Signs Temperature 97.9 F 09/05/24 09:41 Pulse Rate 92 09/05/24 09:41 Respiratory Rate 16 09/05/24 09:41 Blood Pressure 127/78 09/05/24 09:41 Pulse Oximetry 97 09/05/24 09:41 Oxygen Delivery Room Air 09/05/24 09:41 Temperature 97.9 F 09/05/24 13:30 Pulse Rate 76 09/05/24 13:30 Respiratory Rate 16 09/05/24 13:30 Blood Pressure 116/78 09/05/24 13:30 Pulse Oximetry 100 09/05/24 13:30 Oxygen Delivery Room Air 09/05/24 09:41 MDM - Abdominal Pain MDM Narrative Medical decision making narrative: Patient presented to ED with 2 day history of nausea vomiting, weakness. Vital signs are stable upon arrival. Patient in no acute distress. Does report feeling very nauseous upon my evaluation. Fluids and Zofran initiated. Cbc with evidence of hemoconcentration. Hemoglobin 16. Typically around 11-12. CMP with anion gap of 19. Bicarb within normal range. Glucose normal. Stable kidney function. LFTs are abnormal. Total bili 6.0. AST 181, ALT 131. Alk phos WNL. Lipase within normal range. Per records, this does appear consistent with previous records from the last 2 months. She does not appear clinically jaundiced. Denying any right upper quadrant abdominal pain. Viral swabs negative. UA with 4+ ketones, no signs of infection. Fluids are ongoing. UDS is negative. CT scan of abdomen/pelvis was obtained and without any acute abnormality, does show fatty liver. Consistent with previous imaging. CMP was repeated after 2 L of fluid. Anion gap closed. Bilirubin down to 4.4. AST 124. ALT 97. Alk-phos within normal range. Patient on re-evaluation is feeling much improved. She was able to tolerate p.o. intake. She states she feels much better. Ready to go home. Advised patient will need to have very close follow-up with her primary care doctor and GI for further evaluation of abnormal liver enzymes. Discussed very strict return precautions. Patient voiced understanding. She does feel comfortable going home. Discharged in stable condition. Medical Records Attestation: I reviewed the patient's medical records. Lab Data Attestation: I reviewed the patient's lab results. 09/05/24 10:18 09/05/24 12:32 Labs: Lab Results 09/05/24 09/05/24 09/05/24 Range/Units 10:16 10:18 12:32 WBC 8.7 (4.5-10.0) K/mm3 RBC 4.64 (4.2-5.4) M/mm3 Hgb 16.0 H (12.0-15.0) g/dL Hct 47.2 H (37.0-47.0) % MCV 101.7 H (80-100) fl MCH 34.5 H (26-34) pg MCHC 33.9 (32-36) g/dl RDW 13.8 (11.5-14.5) % Plt Count 198 (150-375) k/mm3 MPV 10.1 (7.4-10.4) fl Immature Gran % (Auto) 0.3 (0-0.5) % Neut % (Auto) 81.5 H (45.5-73.1) % Lymph % (Auto) 8.7 L (18.3-44.2) % [place] % (Auto) 9.2 H (2.6-8.5) % Eos % (Auto) 0.0 (0-4.4) % Baso % (Auto) 0.3 (0.2-1.2) % Lymph # (Auto) 0.76 L (0.9-3.2) K/mm3 [place] # (Auto) 0.8 H (0.1-0.6) K/mm3 Eos # (Auto) 0.0 (0-0.3) K/mm3 Baso # (Auto) 0.0 (0.0-0.1) K/mm3 Abs Immat Gran (auto) 0.03 (0.00-0.031) K/mm3 Absolute Neuts (auto) 7.1 H (1.3-6.7) K/mm3 Absolute Nucleated RBC 0.000 (0.0-0.012) K/mm3 Nucleated RBC % 0.0 (0.0-0.2) % Sodium 135 L 135 L (137-145) mmol/L Potassium 3.5 3.4 (3.4-5.0) mmol/L Chloride 94 L 101 (98-107) mmol/L Carbon Dioxide 22 22 (22-30) mmol/L Anion Gap 19 H 12 (4-12) mmol/L BUN 14 D 13 (7-17) mg/dL Creatinine 0.83 0.64 L (0.7-1.0) mg/dL Estim Creat Clear Calc 46 58 ml/min Estimated GFR > 60 > 60 (59 - ) Glucose 105 96 (65-110) mg/dL Calcium 9.9 7.9 L (8.4-10.2) mg/dL Magnesium 2.1 (1.6-2.3) mg/dL Total Bilirubin 6.0 H 4.4 H (0.2-1.3) mg/dL AST 181 H 124 H (14-36) U/L ALT 131 H 97 H (6-35) U/L Alkaline Phosphatase 135 H 93 (38-126) U/L Total Protein 8.4 H 6.5 (6.3-8.2) g/dL Albumin 4.8 3.7 (3.5-5.1) g/dL Lipase 38 (23-300) U/L Urine Color Yellow (Yellow) Urine Appearance Clear (Clear) Urine pH 6.0 (5.0-9.0) Ur Specific Bagley >= 1.030 (1.001-1.035) Urine Protein 2+ H (Negative) mg/dL Urine Glucose (UA) Negative (Negative) mg/dL Urine Ketones 4+ H (Negative) mg/dL Ur Blood (Man) 2+ H (Negative) Urine Nitrate Negative (Negative) Urine Bilirubin 2+ H (Negative) Urine Urobilinogen 0.2 (<2.0) mg/dL Leukocyte Esterase Rfl Negative (Negative) JANY/UL Urine RBC 6-10 H (0-2) /hpf Urine WBC 0-5 (0-3) /hpf Ur Squamous Epith Cells Occasional (Few) /hpf Urine Bacteria None seen /hpf Urine Casts 3-5 Urine Opiates Screen Negative (Negative) Urine Methadone Screen Negative (Negative) Ur Barbiturates Screen Negative (Negative) Ur Phencyclidine Scrn Negative (Negative) Ur Amphetamine Screen Negative (Negative) U Benzodiazepines Scrn Negative (Negative) Urine Cocaine Screen Negative (Negative) U Cannabinoids Screen Negative (Negative) Influenza A (RT-PCR) Negative (Negative) Influenza B (RT-PCR) Negative (Negative) RSV (RT-PCR) Negative (Negative) SARS-CoV-2 RNA (RT-PCR) Negative (Negative) Imaging Data Attestation: I personally reviewed and interpreted this imaging study as follows: Radiologist's impression: ITS Impressions Abdomen/Pelvis CT 09/05/24 11:30 IMPRESSION: 1. No acute abdominal abnormality. 2: Fatty infiltration of the liver. 3: Small hiatal hernia. Discharge Plan Discharge Clinical Impression: Transaminitis, Hyperbilirubinemia, Fatty liver Nausea and vomiting Qualifiers: Vomiting type: unspecified Qualified Code(s): R11.2 - Nausea with vomiting, unspecified Patient Disposition: Home Condition: Stable Instructions: Antibiotic Form, Acute Nausea and Vomiting (ED), Transaminitis (ED) Additional Instructions: Utilize zofran as needed for further nausea. Increase fluid intake. Recommend electrolyte rich fluids, gatorade, pedialyte, body armour. Recommend clear liquids or bland diet until symptoms improve, such as bananas, rice, applesauce, toast, or crackers. Your liver enzymes and bilirubin were elevated today. This appears fairly chronic, but you will need to follow-up with GI for further evaluation of this. Contact office to make appointment. Also recommend follow up with your primary care doctor. Return to the ED if you experience worsening or severe symptoms, unable to keep down food or drink, severe pain, fevers, rectal bleeding, vomiting blood, or any other symptoms of concern. Patient Language: Japanese Prescriptions: New ondansetron 4 mg tablet,disintegrating 4 mg PO Q8H PRN (Reason: nausea and vomiting) Qty: 15 0RF No Action potassium chloride [Klor-Con M20] 20 mEq tablet,ER particles/crystals 20 meq PO DAILY Qty: 7 0RF pantoprazole 40 mg tablet,delayed release (DR/EC) 40 mg PO HS Qty: 30 0RF Follow-up/Referrals: Ofe,Hernandez Morin MD [Primary Care Provider] - Ady Lundberg MD [Physician] - (GI) Time of Disposition: 13:25
[2024-09-05 10:24] LABS: Basophils Percent Auto 0.3 % (0.2-1.2); Hematocrit 47.2 % (37.0-47.0); Immature Granulocyte Absolute 0.03 K/mm3 (0.00-0.031); Immature Granulocyte Percent A 0.3 % (0-0.5); Lymphocytes Absolute Auto 0.76 K/mm3 (0.9-3.2); Lymphocytes Percent Auto 8.7 % (18.3-44.2); Mean Corpuscular HGB Conc 33.9 g/dl (32-36); Mean Corpuscular Hemoglobin 34.5 pg (26-34); Mean Corpuscular Volume 101.7 fl (80-100); Mean Platelet Volume 10.1 fl (7.4-10.4); Monocytes Absolute Auto 0.8 K/mm3 (0.1-0.6); Monocytes Percent Auto 9.2 % (2.6-8.5); Neutrophils Absolute Auto 7.1 K/mm3 (1.3-6.7); Neutrophils Percent Auto 81.5 % (45.5-73.1); Platelet Count Result 198 k/mm3 (150-375); Red Blood Count 4.64 M/mm3 (4.2-5.4); Red Cell Distribution Width 13.8 % (11.5-14.5); White Blood Count 8.7 K/mm3 (4.5-10.0)
[2024-09-05 10:34] LABS: Alanine Aminotransferase 131 U/L (6-35); Albumin Level 4.8 g/dL (3.5-5.1); Alkaline Phosphatase 135 U/L (38-126); Anion Gap 19 mmol/L (4-12); Aspartate Amino Transferase 181 U/L (14-36); Blood Urea Nitrogen 14 mg/dL (7-17); Calcium 9.9 mg/dL (8.4-10.2); Carbon Dioxide 22 mmol/L (22-30); Chloride 94 mmol/L (98-107); Estimated CRCL calculation 46 ml/min; Estimated Glomerular Filt Rate > 60; Glucose 105 mg/dL (65-110); Lipase 38 U/L (23-300); Magnesium 2.1 mg/dL (1.6-2.3); Potassium 3.5 mmol/L (3.4-5.0); Sodium 135 mmol/L (137-145); Total Protein 8.4 g/dL (6.3-8.2)
[2024-09-05 10:39] LABS: Add Urine Microscopic? YES
[2024-09-05 10:40] LABS: Appearance Urine Clear (Clear); Bacteria Urine None Seen /hpf; Blood Urine 2+ (Negative); Color Urine Yellow (Yellow); Glucose Urine UA Negative (Negative); Ketones Urine 4+ mg/dL (Negative); Protein Urine 2+ mg/dL (Negative); Specific Grav Ur >= 1.030 (1.001-1.035); Squamous Epithelial Cell Urine Occasional /hpf (Few); WBC Urine 0-5 /hpf (0-3)
[2024-09-05 10:41] LABS: Bilirubin Urine 2+ (Negative); Leukocyte Esterase Ur Negative LEU/UL (Negative); Nitrate Urine Negative (Negative); Urobilinogen Urine 0.2 mg/dL (<2.0)
[2024-09-05] MEDS: SODIUM CHLORIDE 0.9% IV 1,000 ML 999 ML IV CONT ×2 (10:59→11:01)
[2024-09-05 11:00] VITALS: BP 106/71; PULSE 81; RESP 16; TEMP 36.6; O2SAT 98
[2024-09-05] MEDS: ONDANSETRON INJ 4 MG/2 ML VIAL IV PUSH (11:01)
[2024-09-05 11:08] LABS: Influenza A QL RT-PCR Negative (Negative); Influenza B QL RT-PCR Negative (Negative); RSV RNA, RT-PCR Negative (Negative); SARS-CoV-2 RNA PCR Negative (Negative)
[2024-09-05 11:39] LABS: Amphetamine Screen Urine Negative (Negative); Barbiturate Screen Urine Negative (Negative); Benzodiazepines Screen Urine Negative (Negative); Cannabinoid Screen Urine Negative (Negative); Cocaine Screen Urine Negative (Negative); Methadone Screen Urine Negative (Negative); Phencyclidine Screen Urine Negative (Negative)
[2024-09-05 11:46] LABS: Opiate Screen Urine Negative (Negative)
[2024-09-05 12:33] VITALS: BP 112/66; PULSE 75; RESP 16; TEMP 36.6; O2SAT 96
[2024-09-05 12:52] LABS: Alanine Aminotransferase 97 U/L (6-35); Albumin Level 3.7 g/dL (3.5-5.1); Alkaline Phosphatase 93 U/L (38-126); Anion Gap 12 mmol/L (4-12); Aspartate Amino Transferase 124 U/L (14-36); Bilirubin,Total 4.4 mg/dL (0.2-1.3); Blood Urea Nitrogen 13 mg/dL (7-17); Calcium 7.9 mg/dL (8.4-10.2); Carbon Dioxide 22 mmol/L (22-30); Chloride 101 mmol/L (98-107); Estimated CRCL calculation 58 ml/min; Estimated Glomerular Filt Rate > 60; Glucose 96 mg/dL (65-110); Potassium 3.4 mmol/L (3.4-5.0); Sodium 135 mmol/L (137-145); Total Protein 6.5 g/dL (6.3-8.2)
[2024-09-05 13:30] VITALS: BP 116/78; PULSE 76; RESP 16; TEMP 36.6; O2SAT 100
== END 2024-09-05 13:42 | disposition home or self-care (01) ==
PROVIDERS: Emergency Provider Physician Assistant; PCP Family Medicine
DX: R11.2 Nausea with vomiting, unspecified (principal); R74.01 Elevation of levels of liver transaminase levels; E80.6 Other disorders of bilirubin metabolism; K76.0 Fatty (change of) liver, not elsewhere classified; Z20.822 Contact with and (suspected) exposure to COVID-19; K44.9 Diaphragmatic hernia without obstruction or gangrene
CPT/HCPCS: 36415; 74177; 80053; 80307; 81001; 83690; 83735; 85025; 87637; 96361; 96374; 99284; J2405; J7030; Q9967

== ENCOUNTER 2024-11-10 13:03 | Observation (INO) | payer BC, SELFPAY ==
[2024-11-10] VITALS (26 sets, daily range): BP systolic 108–136; BP diastolic 60–97; PULSE 69–120; RESP 8–24; TEMP 36.2–36.7; O2SAT 96–100
--- NOTE | ~2024-11-10 | CT_ITS ---
EXAMINATION: CT abdomen pelvis w con DATE: 11/10/2024 17:32 INDICATION: Lower abdominal pain TECHNIQUE: Computed tomography (CT) of the abdomen and pelvis was performed with 100 cc Omnipaque 350 intravenous contrast. The dose-length product was 265.72 mGy-cm. Automated exposure control and iter ative reconstruction technique were employed. COMPARISON: CT dated 09/05/2024 FINDINGS: Small hiatal hernia. Lung bases unremarkable. Heart size normal. There is fatty infiltratio n of the liver. The spleen, pancreas, adrenal glands and kidneys are unremarkable. Small fat-containi ng umbilical hernia. Colonic diverticulosis without evidence for diverticulitis. There is mild thicke jesenia of the ascending and transverse colon, suspicious for colitis, most likely infectious/inflammato ry. No free air or free fluid. No significant vascular abnormality. No lymphadenopathy. No acute osse ous abnormality. IMPRESSION: 1. Mild thickening of the ascending and transverse colon, suspicious for colitis, most likely infecti ous or inflammatory. 2: Family infiltration of the liver. 3: Small hiatal hernia. 4: Small fat-containing umbilical hernia. Reviewed, dictated and finalized at location A. IMPRESSION: 1. Mild thickening of the ascending and transverse colon, suspicious for coliti s, most likely infectious or inflammatory. 2: Family infiltration of the liver. 3: Small hiatal hernia. 4: Small fat-containing umbilical hernia.
--- OUTSIDE RECORDS SUMMARY | 2024-11-10 13:42 | XMS_ITS | Clinical Summary ---
Author Organization [address] Address [address] [place] [address] Care Team Providers Care Port Drier Name Role Phone Hernandez Thakur MD Primary Care Provider [phone] Allergies No known active allergies Medications azithromycin (ZITHROMAX) 250 mg tabletIndicatio ns:Bronchitis Take two tabs first day, then one tab daily x 4 days 6 tablet 4 Active Additional Information Patient not taking.Reported on 11/07/2024 methylPREDNISol one (Medrol, Vik,) 4 mg DosepackIndicat ions:Bronchitis follow package directions 1 packet 4 Active Additional Information Patient not taking.Reported on 11/07/2024 cyclobenzaprine (FLEXERIL) 10 mg tablet Take by mouth nightly as needed 5 Active neomycin-polymy arnoldo-HC (CORTISPORIN) 3.5-10,000-1 mg/mL-unit/mL-% otic suspensionIndic ations:Acute otitis externa of right ear, unspecified type Administer 2 drops into the right ear 4 (four) times a day for 7 days 10 mL 5 11/15/19 25 Active neomycin-polymy arnoldo-HC (CORTISPORIN) 3.5-10,000-1 mg/mL-unit/mL-% otic suspensionIndic ations:Acute swimmer's ear of right side Administer 4 drops into the right ear 4 (four) times a day for 7 days 10 mL 5 10/17/19 25 amoxicillin (AMOXIL) 875 mg tablet Take 1 tablet (875 mg total) by mouth 2 (two) times a day for 10 days 20 tablet 11/01/19 25 Active Problems No known active problems Encounters Date Type Department Care Team Description 11/07/2024 3:00 PM CDT Office Visit [facility] at [address] [place] [id number] Agnes Beltran, KALA Acute otitis externa of right ear, unspecified type (Primary Dx) 10/21/2024 6:15 PM CDT Office Visit [facility] at [address] [place] [address] Diana Thorne, KALA Acute right otitis media (Primary Dx); Acute pharyngitis due to other specified organisms 10/09/2024 6:00 PM CDT Office Visit [facility] at [address] [place] [address] Ally Cohn NP Sore throat (Primary Dx); Acute swimmer's ear of right side from Last 3 Months Social History Tobacco Use Types Packs/Day Years Used Date Smoking Tobacco: Never Assessed Comments No Sex and Gender Information Value Date Recorded Sex Assigned at Not on file 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 Gender Identity Not on file Sexual Orientation Not on file Obstetrics History Last Filed Vital Signs Vital Sign Reading Time Taken Comments Blood Pressure 110/54 11/07/2024 2:57 PM CDT Pulse 72 11/07/2024 2:57 PM CDT Temperature 36.3 C (97.3 F) 11/07/2024 2:57 PM CDT Respiratory Rate 16 11/07/2024 2:57 PM CDT Oxygen Saturation 92% 11/07/2024 2:57 PM CDT Inhaled Oxygen Concentration - - Weight 61.4 kg (135 lb 6.4 oz) 11/07/2024 2:57 P M CDT Height 149.9 cm (4' 11) 11/07/2024 2:57 PM CDT Body Mass Index 27.35 11/07/2024 2:57 PM CDT Plan of Treatment Health Maintenance Due Date Last Done Comments Breast Cancer Screening-Mammogram 1965 Cervical Cancer Screening 1965 Colon Cancer Screening-Colonoscopy 1965 Depression Screening 1965 Hepatitis C Screening 1965 DTaP/Tdap/Td Vaccine (1 - Tdap) 01/13/1976 Hepatitis B Screening 1983 Regular Well Visit/Exam 18-64 1983 Zoster Vaccine (1 of 2) 2015 Influenza Vaccine (#1) 2024 Pneumococcal vaccine <65 Aged Out No longer eligible based on patient's age to complete this topic Procedures Procedure Name Priority Date/Time Associated Diagnosis Comments POCT RAPID STREP Routine 10/21/2024 6:42 PM CDT Acute pharyngitis due to other specified organisms COVID-19 POC Routine 10/21/2024 6:42 PM CDT Acute pharyngitis due to other specified organisms POCT RAPID STREP Routine 10/09/2024 6:07 PM CDT Sore throat from Last 3 Months Results * COVID-19 POC (10/21/2024 6:42 PM CDT) Pathologist [facility] COVID-19 Ag POC (BD Veritor) Presumptive Negative Presumptive Negative, Invalid [facility] Nasal 10/21/2024 6:42 PM CDT Diana Thorne NP POINT OF CARE TEST ORDERA BLES Final Result [facility] [address] [place] [address], [facility] * POCT rapid strep A (10/21/2024 6:42 PM CDT) Pathologist [facility] Rapid Strep A, POC Negative Negative Swab 10/21/2024 6:42 PM CDT Diana Elsie Brown IGNITION SPECIALIST POINT OF CARE TEST ORDERA BLES Final Result * POCT rapid strep A (10/09/2024 6:07 PM CDT) Rapid Strep A, POC Negative Negative Swab 10/09/2024 6:07 PM CDT Ally Cohn IGNITION SPECIALIST POINT OF CARE TEST ORDERABLES Final Result from Last 3 Months Insurance [employer] ACCESS Care Teams Port Drier Relationship Specialty Start Date End Date Hernandez Thakur MD [facility] [place] [address] PCP - General Family Medicine 10/21/24
--- NOTE | 2024-11-10 14:25 | ED.NAVMDI ---
HPI - Nausea/Vomiting/Diarrhea General Chief complaint: Nausea/Vomiting/Diarrhea <Gisela Cobos PA-C - Last Filed: 11/11/24 09:44> Stated complaint: throwing up for 3 days <Gisela Cobos PA-C - Last Filed: 11/11/24 09:44> Time Seen by Provider: 11/10/24 14:25 <Gisela Cobos PA-C - Last Filed: 11/11/24 09:44> Focused HPI: This is a 59 year old female that present to the ER for nausea and vomiting. Ongoing over the last 2 days. Reports some diarrhea. No abdominal pain. Denies fever, dysuria. GENERAL: Well-appearing, well-nourished, and in no acute distress. HEAD: Normocephalic, atraumatic. CHEST: Clear to auscultation. ?No respiratory distress. HEART: Regular rate and rhythm.? NEURO: ?Alert and oriented x3. Patient screened in triage and initial orders placed.? ?Additional care and disposition to be based upon?diagnostic testing and treatment. <Gisela Cobos PA-C - Last Filed: 11/11/24 09:44> Source: patient, RN notes reviewed and old records reviewed <Katina Dutton MD - Last Filed: 11/10/24 21:41> Mode of arrival: ambulatory <Katina Dutton MD - Last Filed: 11/10/24 21:41> Limitations: no limitations <Katina Dutton MD - Last Filed: 11/10/24 21:41> History of Present Illness HPI Narrative: This is 59 year old female who presents for evaluation of nausea and vomiting. She states starting 3 days ago she developed bilious vomiting. She has been unable to keep anything down. She denies diarrhea and abdominal pain when I asked. She also denies fever. She has been evaluation every couple of months since June for similar episodes. She is not sure of what triggers her episodes. She denies marijuana use. She does admit to having a few beers last . She has appointment with GI in November. <Katina Dutton MD - Last Filed: 11/10/24 21:41> Related Data Allergies/Adverse reactions: Allergies Allergy/AdvReac Type Severity Reaction Status Date / Time No Known Allergies Allergy Mild Verified 11/10/24 13:11 <Gisela Cobos PA-C - Last Filed: 11/11/24 09:44> Review of Systems Review of Systems: All systems reviewed & are unremarkable except as noted in HPI and below <Gisela Cobos PA-C - Last Filed: 11/11/24 09:44> [facility] Past Medical History Medical History: Medical History Postmenopausal Bronchitis Asthma Esophagitis <Gisela Cobos PA-C - Last Filed: 11/11/24 09:44> Surgical History Surgical History: Surgical History History of section History of cholecystectomy <Gisela Cobos PA-C - Last Filed: 11/11/24 09:44> Family History Family History: Family History Other Unknown family medical history <Gisela Cobos PA-C - Last Filed: 11/11/24 09:44> Social History Social History: Social History Smoking status: Never smoker Alcohol intake: current Drinks per week: 3 Substance use: never Substance use type: does not use Do You Feel Safe in your Home?: Yes Lack of Transportation: No Lack of Food: Never True Current Housing: I Have Housing Concerned About Future Housing: No Difficulty Paying Gas/Electric Bills: No Difficulty Paying for Meds: No Currently Unemployed: No Education: Associate Degree Difficulty w/ Childcare or Family Care: No Spiritual care concerns: No <Gisela Cobos PA-C - Last Filed: 11/11/24 09:44> Course Consultations Consultation #1: I discussed with Dr. Young patient findings. He agrees to consult. No recommendations at this time <Katina Dutton MD - Last Filed: 11/10/24 21:41> Date: 11/10/24 <Katina Dutton MD - Last Filed: 11/10/24 21:41> Time: 18:14 <Katina Dutton MD - Last Filed: 11/10/24 21:41> Consultation #2: I discussed with hospitalist who accepts admission. <Katina Dutton MD - Last Filed: 11/10/24 21:41> Date: 11/10/24 <Katina Dutton MD - Last Filed: 11/10/24 21:41> Time: 18:45 <Katina Dutton MD - Last Filed: 11/10/24 21:41> Vital Signs Vital signs: Vital Signs Temperature 97.2 F L 11/10/24 13:10 Pulse Rate 116 H 11/10/24 13:10 Respiratory Rate 14 11/10/24 13:10 Blood Pressure 128/86 11/10/24 13:10 Pulse Oximetry 97 11/10/24 13:10 Oxygen Delivery Room Air 11/10/24 13:10 Temperature 98.3 F 11/11/24 06:00 Pulse Rate 68 11/11/24 06:00 Respiratory Rate 18 11/11/24 06:00 Blood Pressure 122/67 11/11/24 06:00 Pulse Oximetry 99 11/11/24 06:00 Oxygen Delivery Room Air 11/10/24 13:10 <Gisela Cobos PA-C - Last Filed: 11/11/24 09:44> Vital Signs Temperature 97.2 F L 11/10/24 13:10 Pulse Rate 116 H 11/10/24 13:10 Respiratory Rate 14 11/10/24 13:10 Blood Pressure 128/86 11/10/24 13:10 Pulse Oximetry 97 11/10/24 13:10 Oxygen Delivery Room Air 11/10/24 13:10 Temperature 98.3 F 11/11/24 06:00 Pulse Rate 68 11/11/24 06:00 Respiratory Rate 18 11/11/24 06:00 Blood Pressure 122/67 11/11/24 06:00 Pulse Oximetry 99 11/11/24 06:00 Oxygen Delivery Room Air 11/10/24 13:10 <Katina Dutton MD - Last Filed: 11/10/24 21:41> MDM - Nausea/Vomiting/Diarrhea MDM Narrative Medical decision making narrative: Patient presents with episodic nausea and vomiting. Labs, 1 liter IV fluids, zofran 4 mg IV ordered from triage. Patient reports mild improvement on my assessment so an additional zofran 4 mg IV ordered. Labs shows hyponatremia, hypokalemia, low bicarb from her vomiting. I ordered VBG and lactic acid. VBG shows normal PH but she had elevated lactic acidosis. This is likely from dehydration and less likely sepsis. Additional IV fluids ordered. GI was consulted. I discussed plan to admit with patient and she is comfortable with plan. <Katina Dutton MD - Last Filed: 11/10/24 21:41> Differential Diagnosis Differential diagnosis: Likely food poisoning, dehydration and other (bowel obstruction) <Katina Dutton MD - Last Filed: 11/10/24 21:41> Medical Records Attestation: I reviewed the patient's medical records. <Katina Dutton MD - Last Filed: 11/10/24 21:41> Lab Data Attestation: I reviewed the patient's lab results. <Katina Dutton MD - Last Filed: 11/10/24 21:41> Result diagrams: 11/11/24 05:58 11/11/24 05:58 <Gisela Cobos PA-C - Last Filed: 11/11/24 09:44> Labs: Lab Results 11/10/24 11/10/24 11/10/24 Range/Units 15:45 16:23 16:24 WBC 12.0 H (4.5-10.0) K/mm3 RBC 4.69 (4.2-5.4) M/mm3 Hgb 16.3 H (12.0-15.0) g/dL Hct 47.3 H (37.0-47.0) % MCV 100.9 H (80-100) fl MCH 34.8 H (26-34) pg MCHC 34.5 (32-36) g/dl RDW 13.1 (11.5-14.5) % Plt Count 213 (150-375) k/mm3 MPV 11.3 H (7.4-10.4) fl Immature Gran % (Auto) 0.6 H (0-0.5) % Neut % (Auto) 84.9 H (45.5-73.1) % Lymph % (Auto) 5.2 L (18.3-44.2) % [place] % (Auto) 9.0 H (2.6-8.5) % Eos % (Auto) 0.0 (0-4.4) % Baso % (Auto) 0.3 (0.2-1.2) % Lymph # (Auto) 0.62 L (0.9-3.2) K/mm3 [place] # (Auto) 1.1 H (0.1-0.6) K/mm3 Eos # (Auto) 0.0 (0-0.3) K/mm3 Baso # (Auto) 0.0 (0.0-0.1) K/mm3 Abs Immat Gran (auto) 0.07 H (0.00-0.031) K/mm3 Absolute Neuts (auto) 10.2 H (1.3-6.7) K/mm3 Absolute Nucleated RBC 0.020 H (0.0-0.012) K/mm3 Nucleated RBC % 0.2 (0.0-0.2) % Sodium 136 L (137-145) mmol/L Potassium 3.2 L (3.4-5.0) mmol/L Chloride 90 L (98-107) mmol/L Carbon Dioxide 16 L (22-30) mmol/L Anion Gap 30 H (4-12) mmol/L BUN 12 (7-17) mg/dL Creatinine 1.08 H (0.7-1.0) mg/dL Estim Creat Clear Calc 36 ml/min Estimated GFR 52 L (59 - ) Glucose 135 H (65-110) mg/dL Lactic Acid (0.7-2.0) mmol/L Calcium 9.9 (8.4-10.2) mg/dL Total Bilirubin 6.8 H (0.2-1.3) mg/dL AST 160 H (14-36) U/L ALT 119 H (6-35) U/L Alkaline Phosphatase 130 H (38-126) U/L Total Protein 9.1 H (6.3-8.2) g/dL Albumin 5.0 (3.5-5.1) g/dL Lipase 42 (23-300) U/L Urine Color Dark yellow (Yellow) Urine Appearance Cloudy H (Clear) Urine pH 5.5 (5.0-9.0) Ur Specific [place] 1.022 (1.001-1.035) Urine Protein 2+ H (Negative) mg/dL Urine Glucose (UA) Negative (Negative) mg/dL Urine Ketones 3+ H (Negative) mg/dL Ur Blood (Man) 2+ H (Negative) Urine Nitrate Negative (Negative) Urine Bilirubin 2+ H (Negative) Urine Urobilinogen 1.0 (<2.0) mg/dL Leukocyte Esterase Rfl Trace H (Negative) JANY/UL Urine RBC 11-20 H (0-2) /hpf Urine WBC 0-5 (0-3) /hpf Ur Squamous Epith Cells Many H (Few) /hpf Urine Bacteria Rare /hpf Urine Casts >20 Hyaline Casts Present (None) /lpf POC Urine HCG, Qual Negative (Negative) 11/10/24 Range/Units 16:56 WBC (4.5-10.0) K/mm3 RBC (4.2-5.4) M/mm3 Hgb (12.0-15.0) g/dL Hct (37.0-47.0) % MCV (80-100) fl MCH (26-34) pg MCHC (32-36) g/dl RDW (11.5-14.5) % Plt Count (150-375) k/mm3 MPV (7.4-10.4) fl Immature Gran % (Auto) (0-0.5) % Neut % (Auto) (45.5-73.1) % Lymph % (Auto) (18.3-44.2) % [place] % (Auto) (2.6-8.5) % Eos % (Auto) (0-4.4) % Baso % (Auto) (0.2-1.2) % Lymph # (Auto) (0.9-3.2) K/mm3 [place] # (Auto) (0.1-0.6) K/mm3 Eos # (Auto) (0-0.3) K/mm3 Baso # (Auto) (0.0-0.1) K/mm3 Abs Immat Gran (auto) (0.00-0.031) K/mm3 Absolute Neuts (auto) (1.3-6.7) K/mm3 Absolute Nucleated RBC (0.0-0.012) K/mm3 Nucleated RBC % (0.0-0.2) % Sodium (137-145) mmol/L Potassium (3.4-5.0) mmol/L Chloride (98-107) mmol/L Carbon Dioxide (22-30) mmol/L Anion Gap (4-12) mmol/L BUN (7-17) mg/dL Creatinine (0.7-1.0) mg/dL Estim Creat Clear Calc ml/min Estimated GFR (59 - ) Glucose (65-110) mg/dL Lactic Acid 4.7 H* (0.7-2.0) mmol/L Calcium (8.4-10.2) mg/dL Total Bilirubin (0.2-1.3) mg/dL AST (14-36) U/L ALT (6-35) U/L Alkaline Phosphatase (38-126) U/L Total Protein (6.3-8.2) g/dL Albumin (3.5-5.1) g/dL Lipase (23-300) U/L Urine Color (Yellow) Urine Appearance (Clear) Urine pH (5.0-9.0) Ur Specific [place] (1.001-1.035) Urine Protein (Negative) mg/dL Urine Glucose (UA) (Negative) mg/dL Urine Ketones (Negative) mg/dL Ur Blood (Man) (Negative) Urine Nitrate (Negative) Urine Bilirubin (Negative) Urine Urobilinogen (<2.0) mg/dL Leukocyte Esterase Rfl (Negative) JANY/UL Urine RBC (0-2) /hpf Urine WBC (0-3) /hpf Ur Squamous Epith Cells (Few) /hpf Urine Bacteria /hpf Urine Casts Hyaline Casts (None) /lpf POC Urine HCG, Qual (Negative) <Gisela Cobos PA-C - Last Filed: 11/11/24 09:44> Lab Results 11/10/24 11/10/24 11/10/24 Range/Units 15:45 16:23 16:24 WBC 12.0 H (4.5-10.0) K/mm3 RBC 4.69 (4.2-5.4) M/mm3 Hgb 16.3 H (12.0-15.0) g/dL Hct 47.3 H (37.0-47.0) % MCV 100.9 H (80-100) fl MCH 34.8 H (26-34) pg MCHC 34.5 (32-36) g/dl RDW 13.1 (11.5-14.5) % Plt Count 213 (150-375) k/mm3 MPV 11.3 H (7.4-10.4) fl Immature Gran % (Auto) 0.6 H (0-0.5) % Neut % (Auto) 84.9 H (45.5-73.1) % Lymph % (Auto) 5.2 L (18.3-44.2) % [place] % (Auto) 9.0 H (2.6-8.5) % Eos % (Auto) 0.0 (0-4.4) % Baso % (Auto) 0.3 (0.2-1.2) % Lymph # (Auto) 0.62 L (0.9-3.2) K/mm3 [place] # (Auto) 1.1 H (0.1-0.6) K/mm3 Eos # (Auto) 0.0 (0-0.3) K/mm3 Baso # (Auto) 0.0 (0.0-0.1) K/mm3 Abs Immat Gran (auto) 0.07 H (0.00-0.031) K/mm3 Absolute Neuts (auto) 10.2 H (1.3-6.7) K/mm3 Absolute Nucleated RBC 0.020 H (0.0-0.012) K/mm3 Nucleated RBC % 0.2 (0.0-0.2) % Sodium 136 L (137-145) mmol/L Potassium 3.2 L (3.4-5.0) mmol/L Chloride 90 L (98-107) mmol/L Carbon Dioxide 16 L (22-30) mmol/L Anion Gap 30 H (4-12) mmol/L BUN 12 (7-17) mg/dL Creatinine 1.08 H (0.7-1.0) mg/dL Estim Creat Clear Calc 36 ml/min Estimated GFR 52 L (59 - ) Glucose 135 H (65-110) mg/dL Lactic Acid (0.7-2.0) mmol/L Calcium 9.9 (8.4-10.2) mg/dL Total Bilirubin 6.8 H (0.2-1.3) mg/dL AST 160 H (14-36) U/L ALT 119 H (6-35) U/L Alkaline Phosphatase 130 H (38-126) U/L Total Protein 9.1 H (6.3-8.2) g/dL Albumin 5.0 (3.5-5.1) g/dL Lipase 42 (23-300) U/L Urine Color Dark yellow (Yellow) Urine Appearance Cloudy H (Clear) Urine pH 5.5 (5.0-9.0) Ur Specific [place] 1.022 (1.001-1.035) Urine Protein 2+ H (Negative) mg/dL Urine Glucose (UA) Negative (Negative) mg/dL Urine Ketones 3+ H (Negative) mg/dL Ur Blood (Man) 2+ H (Negative) Urine Nitrate Negative (Negative) Urine Bilirubin 2+ H (Negative) Urine Urobilinogen 1.0 (<2.0) mg/dL Leukocyte Esterase Rfl Trace H (Negative) JANY/UL Urine RBC 11-20 H (0-2) /hpf Urine WBC 0-5 (0-3) /hpf Ur Squamous Epith Cells Many H (Few) /hpf Urine Bacteria Rare /hpf Urine Casts >20 Hyaline Casts Present (None) /lpf POC Urine HCG, Qual Negative (Negative) 11/10/24 Range/Units 16:56 WBC (4.5-10.0) K/mm3 RBC (4.2-5.4) M/mm3 Hgb (12.0-15.0) g/dL Hct (37.0-47.0) % MCV (80-100) fl MCH (26-34) pg MCHC (32-36) g/dl RDW (11.5-14.5) % Plt Count (150-375) k/mm3 MPV (7.4-10.4) fl Immature Gran % (Auto) (0-0.5) % Neut % (Auto) (45.5-73.1) % Lymph % (Auto) (18.3-44.2) % [place] % (Auto) (2.6-8.5) % Eos % (Auto) (0-4.4) % Baso % (Auto) (0.2-1.2) % Lymph # (Auto) (0.9-3.2) K/mm3 [place] # (Auto) (0.1-0.6) K/mm3 Eos # (Auto) (0-0.3) K/mm3 Baso # (Auto) (0.0-0.1) K/mm3 Abs Immat Gran (auto) (0.00-0.031) K/mm3 Absolute Neuts (auto) (1.3-6.7) K/mm3 Absolute Nucleated RBC (0.0-0.012) K/mm3 Nucleated RBC % (0.0-0.2) % Sodium (137-145) mmol/L Potassium (3.4-5.0) mmol/L Chloride (98-107) mmol/L Carbon Dioxide (22-30) mmol/L Anion Gap (4-12) mmol/L BUN (7-17) mg/dL Creatinine (0.7-1.0) mg/dL Estim Creat Clear Calc ml/min Estimated GFR (59 - ) Glucose (65-110) mg/dL Lactic Acid 4.7 H* (0.7-2.0) mmol/L Calcium (8.4-10.2) mg/dL Total Bilirubin (0.2-1.3) mg/dL AST (14-36) U/L ALT (6-35) U/L Alkaline Phosphatase (38-126) U/L Total Protein (6.3-8.2) g/dL Albumin (3.5-5.1) g/dL Lipase (23-300) U/L Urine Color (Yellow) Urine Appearance (Clear) Urine pH (5.0-9.0) Ur Specific [place] (1.001-1.035) Urine Protein (Negative) mg/dL Urine Glucose (UA) (Negative) mg/dL Urine Ketones (Negative) mg/dL Ur Blood (Man) (Negative) Urine Nitrate (Negative) Urine Bilirubin (Negative) Urine Urobilinogen (<2.0) mg/dL Leukocyte Esterase Rfl (Negative) JANY/UL Urine RBC (0-2) /hpf Urine WBC (0-3) /hpf Ur Squamous Epith Cells (Few) /hpf Urine Bacteria /hpf Urine Casts Hyaline Casts (None) /lpf POC Urine HCG, Qual (Negative) <Katina Dutton MD - Last Filed: 11/10/24 21:41> ABG Data ABG results: 11/10/24 16:56 VBG pH 7.410 H* VBG pCO2 31.5 L VBG pO2 74.0 H VBG HCO3 19.5 L O2 Delivery Device Room air O2 Liters/Min Not Reportable FiO2 21 <Gisela Cobos PA-C - Last Filed: 11/11/24 09:44> 11/10/24 16:56 VBG pH 7.410 H* VBG pCO2 31.5 L VBG pO2 74.0 H VBG HCO3 19.5 L O2 Delivery Device Room air O2 Liters/Min Not Reportable FiO2 21 <Katina Dutton MD - Last Filed: 11/10/24 21:41> Imaging Data Radiologist's impression: ITS Impressions Abdomen/Pelvis CT 11/10/24 17:41 IMPRESSION: 1. Mild thickening of the ascending and transverse colon, suspicious for colitis, most likely infectious or inflammatory. 2: Family infiltration of the liver. 3: Small hiatal hernia. 4: Small fat-containing umbilical hernia. <Katina Dutton MD - Last Filed: 11/10/24 21:41> Discharge Plan Discharge Clinical Impression: Lactic acidosis, Acute dehydration Nausea & vomiting Qualifiers: Vomiting type: unspecified Qualified Code(s): R11.2 - Nausea with vomiting, unspecified <Gisela Cobos PA-C - Last Filed: 11/11/24 09:44> Patient Disposition: Still a Patient <Gisela Cobos PA-C - Last Filed: 11/11/24 09:44> Condition: Guarded Prognosis <Gisela Cobos PA-C - Last Filed: 11/11/24 09:44>
--- OUTSIDE RECORDS SUMMARY | 2024-11-10 15:35 | XMS_ITS | Clinical Summary ---
Author Organization [address] Address [address] [place] [address] Care Team Providers Care Glass Lined Tank Repairer Name Role Phone Hernandez Thakur MD Primary Care Provider [phone] Allergies No known active allergies Medications azithromycin [...] Description 11/07/2024 3:00 PM CDT Office Visit [facility] [address] [place] [id number] Agnes Bletran, KALA Acute otitis externa of right ear, unspecified type (Primary Dx) 10/21/2024 6:15 PM CDT Office Visit [facility] [address] [place] [address] Diana Thorne, KALA Acute right otitis media (Primary Dx); Acute pharyngitis due to other specified organisms 10/09/2024 6:00 PM CDT Office Visit [facility] [address] [place] [address] Ally Cohn NP Sore throat (Primary Dx); Acute swimmer's ear of right side from Last 3 Months Social History Tobacco Use Types Packs/Day Years Used Date Smoking Tobacco: Never Assessed Comments No Sex and Gender Information Value Date Recorded Sex Assigned at Not on file Legal Sex 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 Gender Identity Not on file Sexual Orientation [...] POC (10/21/2024 6:42 PM CDT) Pathologist [facility] COVID-19 Ag POC (BD Veritor) Presumptive Negative Presumptive Negative, Invalid [facility] Nasal 10/21/2024 6:42 PM CDT Diana Thorne NP POINT OF CARE TEST ORDERA BLES Final Result [facility] [address] [place] [address], [facility] * POCT rapid strep A (10/21/2024 6:42 PM CDT) Pathologist [facility] Rapid Strep A, POC Negative Negative Swab 10/21/2024 6:42 PM CDT Diana Elsie Brown HAND GLASS CUTTER POINT OF CARE TEST ORDERA BLES Final Result * POCT rapid strep A (10/09/2024 6:07 PM CDT) Rapid Strep A, POC Negative Negative Swab 10/09/2024 6:07 PM CDT Ally Cohn HAND GLASS CUTTER POINT OF CARE TEST ORDERABLES Final Result from Last 3 Months Insurance Instant Information ACCESS Care Teams Glass Lined Tank Repairer Relationship Specialty Start Date End Date Hernandez Thakur MD [facility] [place] [address] PCP - General Family Medicine 10/21/24
[2024-11-10] MEDS: ONDANSETRON INJ 4 MG/2 ML VIAL IV PUSH ×2 (15:43→17:41)
[2024-11-10] MEDS: SODIUM CHLORIDE 0.9% IV 1,000 ML 999 ML IV CONT (15:43)
[2024-11-10] MEDS: FAMOTIDINE 20 MG/2 ML VIAL IV PUSH (15:43)
[2024-11-10 16:07] LABS: Hematocrit 47.3 % (37.0-47.0); Hemoglobin 16.3 g/dL (12.0-15.0); Immature Granulocyte Percent A 0.6 % (0-0.5); Lymphocytes Absolute Auto 0.62 K/mm3 (0.9-3.2); Mean Corpuscular HGB Conc 34.5 g/dl (32-36); Mean Corpuscular Hemoglobin 34.8 pg (26-34); Mean Corpuscular Volume 100.9 fl (80-100); Nucleated Red Blood Cells Absolute Auto 0.020 K/mm3 (0.0-0.012); Nucleated Red Blood Cells Perc 0.2 % (0.0-0.2); Platelet Count Result 213 k/mm3 (150-375); Red Blood Count 4.69 M/mm3 (4.2-5.4); White Blood Count 12.0 K/mm3 (4.5-10.0)
[2024-11-10 16:24] LABS: Alanine Aminotransferase 119 U/L (6-35); Albumin Level 5.0 g/dL (3.5-5.1); Alkaline Phosphatase 130 U/L (38-126); Anion Gap 30 mmol/L (4-12); Aspartate Amino Transferase 160 U/L (14-36); Bilirubin,Total 6.8 mg/dL (0.2-1.3); Blood Urea Nitrogen 12 mg/dL (7-17); Calcium 9.9 mg/dL (8.4-10.2); Carbon Dioxide 16 mmol/L (22-30); Chloride 90 mmol/L (98-107); Estimated CRCL calculation 36 ml/min; Estimated Glomerular Filt Rate 52; Glucose 135 mg/dL (65-110); Lipase 42 U/L (23-300); Potassium 3.2 mmol/L (3.4-5.0); Sodium 136 mmol/L (137-145); Total Protein 9.1 g/dL (6.3-8.2)
[2024-11-10 16:25] LABS: BEDSIDEPREGUCG Negative (Negative)
[2024-11-10 16:51] LABS: Add Urine Microscopic? YES; Appearance Urine Cloudy (Clear); Glucose Urine UA Negative (Negative); Leukocyte Esterase Ur Trace LEU/UL (Negative); Nitrate Urine Negative (Negative); Non Pathogenic Casts >20; Specific Grav Ur 1.022 (1.001-1.035)
[2024-11-10 17:06] LABS: Fractional Inspired Oxygen 21 %; HCO3 VBG 19.5 mEq/l (24.0-30.0); PCO2 VBG 31.5 mmHg (42.0-48.0); PO2 VBG 74.0 mmHg (35.0-45.0)
[2024-11-10 17:08] LABS: pH VBG 7.410 (7.300-7.400)
[2024-11-10] MEDS: LACTATED RINGERS 1,000 ML 999 ML IV CONT ×2 (17:40→17:41)
[2024-11-10] MEDS: PROMETHAZINE HCL 25 MG/ML AMPUL 12.5 MG IV PUSH (18:49)
--- NOTE | 2024-11-10 20:33 | ADMGEN ---
This patient, Tiesha Rojas, was admitted to [facility] Surg Room 329-. Patient/family oriented to hospital policies and general routines including ID bracelet, bed and alarms, visiting hours, pain management, procedures, bathroom and other care routines, personal items, smoking policy, room service/diet, and visiting hours. Information on how to activate the Rapid Response Team has been discussed. Patient/Family are encouraged to report perceived risks to care and to ask questions if they do not understand what they are told or what they should do.
[2024-11-10] MEDS: LACTATED RINGERS 1,000 ML 125 ML IV CONT (21:05)
--- NOTE | 2024-11-10 21:08 | PM.IMHP ---
H&P: HPI History of Present Illness Date/Time: 11/10/24 21:08 Chief Complaint: Nausea and Vomiting Narrative: 59 y/o F with PMH of asthma and cholecystectomy presents here with nausea and vomiting. The patient presents here from home a on 11/10 for further evaluation of nausea and vomiting. She reports onset approximately 2 days ago. She reports intermittent abdominal cramping that is relieved with a bowel movement. She additionally has been experiencing diarrhea. She denies accompanying lower abdominal pain, fever, body aches, or urinary symptoms. She denies any significant past GI history beyond a cholecystectomy. She does report moderate alcohol use. She reports she drinks 6 beers (3 Sunday, 3 Sunday) weekly. She denies any previous history of IV drug use. She denies any personal history of autoimmune disorder or any known family history of autoimmune disorder. Initial VS at presentation: 97.2? F, HR 116, R 14, 128/86, and 97% on RA. ED workup showed: WBC 12.0, hemoglobin 16.3 (16.0 on 09/05/2024), sodium 136, potassium 3.2, creatinine 1.08 and GFR 52, lactic 4.7, and UA showing possible UTI. CT of the abdomen/pelvis showed mild thickening of the ascending and transverse colon suspicious for colitis (infectious or inflammatory), fatty infiltration of the liver, small hiatal hernia, small fat containing umbilical hernia. Review of Systems Review of Systems: All systems reviewed & are unremarkable except as noted in HPI and below PMFSH Past Medical History Medical History Postmenopausal Bronchitis Asthma Esophagitis Surgical History Surgical History History of section History of cholecystectomy Family History Family History Other Unknown family medical history Social History Social History Smoking status: Never smoker Alcohol intake: current Drinks per week: 3 Substance use: never Substance use type: does not use Do You Feel Safe in your Home?: Yes Lack of Transportation: No Lack of Food: Never True Current Housing: I Have Housing Concerned About Future Housing: No Difficulty Paying Gas/Electric Bills: No Difficulty Paying for Meds: No Currently Unemployed: No Education: Associate Degree Difficulty w/ Childcare or Family Care: No Spiritual care concerns: No Meds Home Medications and Allergies Home Medications ?Medication ?Instructions ?Recorded ?Confirmed ?Type potassium chloride 20 mEq 20 meq PO DAILY #7 tabs 07/18/24 11/10/24 Rx tablet,extended release(part/cryst) ([facility]) Allergies Allergy/AdvReac Type Severity Reaction Status Date / Time No Known Allergies Allergy Mild Verified 11/10/24 13:11 Vital Signs Vital Signs - 24 hr 11/10/24 13:10 11/10/24 15:24 11/10/24 15:33 Temperature 97.2 F L 98.1 F Pulse Rate 116 H 118 H 105 H Respiratory Rate 14 17 8 L Blood Pressure 128/86 136/97 H Pulse Oximetry 97 99 Oxygen Delivery Room Air 11/10/24 15:34 11/10/24 15:45 11/10/24 16:00 Temperature Pulse Rate 102 H 96 85 Respiratory Rate 20 22 H 17 Blood Pressure 136/97 H Pulse Oximetry 96 96 Oxygen Delivery 11/10/24 16:15 11/10/24 16:23 11/10/24 16:24 Temperature Pulse Rate 120 H 84 82 Respiratory Rate 18 15 20 Blood Pressure 114/72 Pulse Oximetry 97 97 Oxygen Delivery 11/10/24 16:30 11/10/24 16:31 11/10/24 16:45 Temperature Pulse Rate 86 84 119 H Respiratory Rate 23 H 24 H 20 Blood Pressure 129/86 Pulse Oximetry 97 97 98 Oxygen Delivery 11/10/24 17:00 11/10/24 17:01 11/10/24 17:15 Temperature Pulse Rate 79 95 103 H Respiratory Rate 19 21 H 17 Blood Pressure 108/60 Pulse Oximetry 96 97 99 Oxygen Delivery 11/10/24 17:32 11/10/24 17:45 11/10/24 18:00 Temperature Pulse Rate 80 81 71 Respiratory Rate 15 16 20 Blood Pressure Pulse Oximetry 98 97 96 Oxygen Delivery 11/10/24 18:15 11/10/24 18:27 11/10/24 18:30 Temperature Pulse Rate 78 76 83 Respiratory Rate 13 19 22 H Blood Pressure 128/65 Pulse Oximetry 100 99 Oxygen Delivery 11/10/24 18:31 11/10/24 18:45 08/18/25 19:00 Temperature Pulse Rate 88 79 79 Respiratory Rate 24 H 17 23 H Blood Pressure 116/94 H Pulse Oximetry 99 98 98 Oxygen Delivery 11/10/24 19:01 Temperature Pulse Rate 69 Respiratory Rate 16 Blood Pressure 127/77 Pulse Oximetry 96 Oxygen Delivery Exam Const: General: comfortable and no acute distress Other: , female, nontoxic appearance HENMT: Face/Nose/Sinus: Normal nares present Mouth: Yes moist mucous membranes Eyes: General: appearance normal, both eyes and all related structures Sclera: sclerae normal Pupils: Equal, round and reactive pupils present EOM: EOMs intact bilaterally Resp: Effort & Inspection: normal respiratory effort Auscultation: clear to auscultation bilaterally Cardio: Rate: regular rate Rhythm: regular rhythm Other: S1-S2 present without murmur, rub, ectopy GI: Other: Abdomen soft, nondistended, nontender. Normoactive bowel sounds in all quadrants. Skin: General skin exam: normal color and no rashes or lesions noted Wounds: no wounds Neuro: Speech: normal speech Motor exam (neuro): 5/5 motor strength present throughout Sensory Exam: normal sensation Other: A&O x4 Extrem: General: normal to inspection Psych: Mental Status: mental status grossly normal Affect: normal affect Other: Good insight and judgment, pleasant H&P: Results Labs Labs: Short CBC 11/10/24 Range/Units 15:45 WBC 12.0 H (4.5-10.0) K/mm3 Hgb 16.3 H (12.0-15.0) g/dL Hct 47.3 H (37.0-47.0) % Plt Count 213 (150-375) k/mm3 BMP 11/10/24 15:45 Sodium 136 L Potassium 3.2 L Chloride 90 L Carbon Dioxide 16 L BUN 12 Creatinine 1.08 H Glucose 135 H Calcium 9.9 Liver Function 11/10/24 Range/Units 15:45 Total Bilirubin 6.8 H (0.2-1.3) mg/dL AST 160 H (14-36) U/L ALT 119 H (6-35) U/L Alkaline Phosphatase 130 H (38-126) U/L Albumin 5.0 (3.5-5.1) g/dL Urine 11/10/24 Range/Units 16:23 Urine Color Dark yellow (Yellow) Urine Appearance Cloudy H (Clear) Urine pH 5.5 (5.0-9.0) Ur Specific [place] 1.022 (1.001-1.035) Urine Protein 2+ H (Negative) mg/dL Urine Glucose (UA) Negative (Negative) mg/dL Assessment and Plan Assessment and plan (1) Nausea & vomiting: Code(s): R11.2 - Nausea with vomiting, unspecified Status: Acute Assessment and Plan: - CT abd/pelvis, 11/10: 1. Mild thickening of the ascending and transverse colon, suspicious for colitis, most likely infectious or inflammatory. 2: Family infiltration of the liver. 3: Small hiatal hernia. 4: Small fat-containing umbilical hernia. - GI consulted - has hx of cholecystectomy, consider biliary sludge. May need ERCP. - IV fluids: 3L -> 125 mL/hr - check UDS - antiemetics prn (2) Transaminitis: Code(s): R74.01 - Elevation of levels of liver transaminase levels Status: Acute Assessment and Plan: - total bilirubin 6.8, at AST 160, ALT 119, alk-phos 130 - GI consulted - check hepatitis panel, haptoglobin, GGT, ESR, EBV, CRP, CK, CMP, bilirubin indirect, DEREJE, and SMA - trend Differential includes DWYER, biliary sludge, EBV, CMV, autoimmune, sepsis (3) Lactic acidosis: Code(s): E87.20 - Acidosis, unspecified Status: Acute Assessment and Plan: - lactic 4.7 upon admission. Given IV fluids (3L) -> 3.0. Recheck in a.m.. - check procalcitonin - IV fluids Secondary to sepsis verses acute dehydration secondary to nausea/vomiting. Possible infectious versus including colitis and UTI. (4) Colitis: Code(s): K52.9 - Noninfective gastroenteritis and colitis, unspecified Status: Acute Assessment and Plan: Does report mild abdominal cramping that is relieved with bowel movements as well as diarrhea. No previous history of colitis. - Mild thickening of the ascending and transverse colon, suspicious for colitis, most likely infectious or inflammatory on CT on 11/10 - started on ceftriaxone and Flagyl on 11/10 - antiemetics and analgesics p.r.n. - IV fluids - clear liquid diet - daily clinical reassessment for improvement Plan Diet: Clear liquid GI Prophylaxis: PPI IV DVT Prophylaxis: SCDs IV fluids: 3L -> 125 mL/hr Lines/Tubes: Peripheral IV Code Status: DNR Quality VTE Prophylaxis VTE prophylaxis: mechanical ordered Hospitalist MIPS Advance Care Plan I have confirmed that the patient's Advanced Care Plan is present, code status is documented, or surrogate decision maker is listed in patient medical record.: Yes Medication Reconciliation I have utilized all available resources to obtain, update and review the patients current medications (includes all prescriptions, OTC, herbals, cannabis, and nutritional supplements).: Yes
[2024-11-10] MEDS: cefTRIAXone 1 GM in SODIUM CHLORIDE 0.9% IV 50 ML 100 ML IVPB (21:59)
[2024-11-10] MEDS: hydrOXYzine HCL 12.5 MG TABLET PO (22:03)
[2024-11-10] MEDS: MELATONIN 5 MG TABLET PO (22:03)
[2024-11-10 22:19] LABS: Creatine Kinase 60 U/L (30-135)
[2024-11-10 22:23] LABS: CRP 2.2 mg/dL (<1.0)
[2024-11-10] MEDS: metroNIDAZOLE 500 MG/ISO 100ML 500 MG/100 ML BAG 100 MG IVPB (22:31)
[2024-11-10 22:36] LABS: Procalcitonin 0.1 ng/mL
[2024-11-10 22:51] LABS: Hepatitis B Surface Antigen Negative (Negative)
[2024-11-10 22:56] LABS: Hepatitis B Core IgM Result Negative (Negative)
[2024-11-11] MEDS: HYDROcodone/acetaminophen (*CRX) 5-325 MG TABLET 1 TAB PO (01:53)
[2024-11-11 02:58] LABS: Cannabinoid Screen Urine Negative (Negative)
[2024-11-11] MEDS: metroNIDAZOLE 500 MG/ISO 100ML 500 MG/100 ML BAG 100 MG IVPB ×3 (05:24→21:37)
[2024-11-11 06:00] VITALS: BP 122/67; PULSE 68; RESP 18; TEMP 36.8; O2SAT 99
[2024-11-11 06:17] LABS: Hematocrit 35.6 % (37.0-47.0); Hemoglobin 11.9 g/dL (12.0-15.0); Immature Granulocyte Percent A 0.4 % (0-0.5); Lymphocytes Absolute Auto 1.14 K/mm3 (0.9-3.2); Mean Corpuscular HGB Conc 33.4 g/dl (32-36); Mean Corpuscular Hemoglobin 34.4 pg (26-34); Mean Corpuscular Volume 102.9 fl (80-100); Nucleated Red Blood Cells Absolute Auto 0.000 K/mm3 (0.0-0.012); Nucleated Red Blood Cells Perc 0.0 % (0.0-0.2); Platelet Count Result 124 k/mm3 (150-375); Red Blood Count 3.46 M/mm3 (4.2-5.4); White Blood Count 5.7 K/mm3 (4.5-10.0)
[2024-11-11 06:48] LABS: Alanine Aminotransferase 76 U/L (6-35); Albumin Level 3.4 g/dL (3.5-5.1); Alkaline Phosphatase 79 U/L (38-126); Anion Gap 7 mmol/L (4-12); Aspartate Amino Transferase 98 U/L (14-36); Bilirubin,Total 5.6 mg/dL (0.2-1.3); Blood Urea Nitrogen 12 mg/dL (7-17); Calcium 8.2 mg/dL (8.4-10.2); Carbon Dioxide 31 mmol/L (22-30); Chloride 94 mmol/L (98-107); Estimated CRCL calculation 54 ml/min; Estimated Glomerular Filt Rate > 60; Glucose 90 mg/dL (65-110); Potassium 3.2 mmol/L (3.4-5.0); Sodium 132 mmol/L (137-145); Total Protein 6.0 g/dL (6.3-8.2)
[2024-11-11] MEDS: LACTATED RINGERS 1,000 ML 125 ML IV CONT ×2 (07:30→19:39)
--- NOTE | 2024-11-11 07:46 | P.CONGI_ITS ---
Assessment and Plan Assessment and plan (1) Nausea & vomiting: Qualifiers: Vomiting type: unspecified Qualified Code(s): R11.2 - Nausea with vomiting, unspecified Code(s): R11.2 - Nausea with vomiting, unspecified Status: Acute (2) Esophagitis: Code(s): K20.90 - Esophagitis, unspecified without bleeding Status: Acute (3) Colitis: Code(s): K52.9 - Noninfective gastroenteritis and colitis, unspecified Status: Acute (4) Elevated LFTs: Code(s): R79.89 - Other specified abnormal findings of blood chemistry Status: Acute (5) EtOH dependence: Qualifiers: Substance use status: uncomplicated Qualified Code(s): F10.20 - Alcohol dependence, uncomplicated Code(s): F10.20 - Alcohol dependence, uncomplicated Status: Acute Plan 1. Nausea/vomiting/hiatal hernia/esophagitis: CT this admission showed small hiatal hernia but no other findings to explain symptoms. CT in June showed suspected esophagitis in the distal esophagus. Patient S/P CCX. LFT's elevated and lipase normal at 42. Nausea and vomiting started after a recent 10 day course of Amoxicillin for an ear infection but has improved since admission. DDX: Acid versus nonacid reflux versus motility disorder versus medication induced. * Continue supportive care with antiemetics * Patient is scheduled for an office visit with Dr. Atkins and November at which time she can discuss possible need for EGD * continue Protonix and patient will need to be discharged home on Protonix 40 mg daily 2. Elevated LFT's/hepatic steatosis: CT showed fatty infiltration of the liver. LFT's today Total bilirubin 5.6, indirect 4.8, AST 98, ALT 76, Alk Phos 79, albumin 3.4 and platelets 124. No known history of liver disease. Bilirubin and transaminase elevated and intermittent Alk Phos elevation since June 2024. Patient was admitted in June for nausea, vomiting, acute hypokalemia, acute prerenal azotemia and transaminitis. No liver workup was done during that admission. Patient recent completed a 10 day course of Amoxicillin so DILI can not be excluded; however, her LFT's were also elevated in June prior to her recent antibiotic course. Patient admits to drinking a few times weekly and normally has 3-4 mixed drinks but her sister believes she may drink more than stated. * Additional work up ordered to rule out hemolytic anemia, Kenny disease, B12 or folate deficiency and more advanced liver disease than that seen on imaging such as cirrhosis (given abnormal LFT's, low albumin, low platelets and macrocytosis), * Less likely related to viral etiology given the low transaminase levels, but could be early presentation * Hep B and C negative but Hep A still pending * haptoglobin, GGT and Actin IgG still pending * T/C outpatient FibroScan 3. Colitis: Patient has never had a colonoscopy. Family Hx negative for CRC or IBD. CT showed mild thickening of the ascending and transverse colon, suspicious for colitis. Patient was having diarrhea for 3 days prior to admission but no BM x 2 days. WBC's normal. She is currently on Rocephin and Flagyl. * continue antibiotics * can discuss outpatient colonoscopy during her visit with Dr. Atkins * no plans for endoscopic evaluation this admission unless there is a change in clinical presentation * diet advanced Thank you very much for allowing me to share in the care of this very nice patient. This report may have been done utilizing a voice recognition system. Attempts have been made to correct errors. However, there may be uncorrected grammatical, spelling, and recognition errors present. GI Consult Note Consult date/time: 11/11/24 07:46 Reason for consult: Nausea, vomiting and elevated LFT's HPI: Tiehsa Rojas is a 59 year old female with PMSH of asthma, CCX, and . She presented to the ER yesterday with complaints of nausea and vomiting. GI has been consulted for nausea, vomiting and elevated LFT's. Patient was seen with her sister Gretchen at her bedside throughout the entire visit. Patient states that she was recently treated with high-dose amoxicillin times 10 days for an ear infection and after starting her antibiotics she started having diarrhea, nausea, vomiting, weight loss and decreased appetite x3 days. She denies any bowel movements since admission. Nausea and vomiting has improved but not resolved. She denies any abdominal pain, bloating, odynophagia, dysphagia, reflux, regurgitation, early satiety. Admits to a 10 lbs weight loss over the past few weeks. Denies constipation, hematochezia or melena. Denies NSAID, aspirin, or anticoagulant use. Family history negative for CRC or IBD. She admits to frequent alcohol use but denies any tobacco or marijuana use. ENDOSCOPY HISTORY: Patient has never had an EGD or colonoscopy LABS AND STOOL STUDIES: Labs 11/11/2024: Sodium 132, potassium 3.2, BUN 12, creatinine 0.69, GFR >60, calcium 8.2, lactic acid 1.2 WBC 6, Hgb 12, Hct 36, MCV 103, platelets 124, Total bilirubin 5.6, indirect bili 4.8, AST 98, ALT 76, Alkaline Phos 79, albumin 3.4 Procalcitonin 0.1 ESR 21 Labs 11/10/2024: WBC 12, Hgb 16, Hct 47, MCV 101, platelets 213 Sodium 136, potassium 3.2, BUN 12, creatinine 1.08, GFR 52, calcium 9.9 Total bilirubin 6.8, AST 160, ALT 119, Alkaline Phos 130, albumin 5.0, lipase 42 IMAGING: CT abd/pelvis w/contrast 11/10/2024: IMPRESSION: 1. Mild thickening of the ascending and transverse colon, suspicious for colitis, most likely infectious or inflammatory. 2: Fatty infiltration of the liver. 3: Small hiatal hernia. 4: Small fat-containing umbilical hernia. CT abd/pelvis w/contrast 09/05/2024: IMPRESSION: 1. No acute abdominal abnormality. 2: Fatty infiltration of the liver. 3: Small hiatal hernia. Review of Systems 2 Constitutional: Constitutional: Reports as per HPI ENT: Reports as per HPI Cardiovascular: Cardiovascular: Reports as per HPI, Denies chest pain and Denies dyspnea Respiratory: Respiratory: Denies cough and Denies dyspnea Gastrointestinal: Gastrointestinal: Reports as per HPI Musculoskeletal: Musculoskeletal: Reports as per HPI Integumentary/Breasts: Skin/Breast: Reports as per HPI Psychiatric: Psychiatric: Reports as per HPI Endocrine: Endocrine: Reports no additional endocrine complaints Hematologic/Lymphatic: Hematologic/Lymphatic: Reports no additional hematologic/lymphatic complaints [facility] Past Medical History Medical History Postmenopausal Bronchitis Asthma Esophagitis Surgical History Surgical History History of section History of cholecystectomy Family History Family History Other Unknown family medical history Social History Social History Smoking status: Never smoker Alcohol intake: current Drinks per week: 3 Substance use: never Substance use type: does not use Do You Feel Safe in your Home?: Yes Lack of Transportation: No Lack of Food: Never True Current Housing: I Have Housing Concerned About Future Housing: No Difficulty Paying Gas/Electric Bills: No Difficulty Paying for Meds: No Currently Unemployed: No Education: Associate Degree Difficulty w/ Childcare or Family Care: No Spiritual care concerns: No Meds Home Medications and Allergies Home Medications ?Medication ?Instructions ?Recorded ?Confirmed ?Type potassium chloride 20 mEq 20 meq PO DAILY #7 tabs 06/2511/10/24 Rx tablet,extended release(part/cryst) (Colette Bassett) Allergies Allergy/AdvReac Type Severity Reaction Status Date / Time No Known Allergies Allergy Mild Verified 11/10/24 13:11 Vital Signs Vital Signs - 24 hr 11/10/24 13:10 11/10/24 15:24 11/10/24 15:33 Temperature 97.2 F L 98.1 F Pulse Rate 116 H 118 H 105 H Respiratory Rate 14 17 8 L Blood Pressure 128/86 136/97 H Pulse Oximetry 97 99 Oxygen Delivery Room Air 11/10/24 15:34 11/10/24 15:45 11/10/24 16:00 Temperature Pulse Rate 102 H 96 85 Respiratory Rate 20 22 H 17 Blood Pressure 136/97 H Pulse Oximetry 96 96 Oxygen Delivery 11/10/24 16:15 11/10/24 16:23 11/10/24 16:24 Temperature Pulse Rate 120 H 84 82 Respiratory Rate 18 15 20 Blood Pressure 114/72 Pulse Oximetry 97 97 Oxygen Delivery 11/10/24 16:30 11/10/24 16:31 11/10/24 16:45 Temperature Pulse Rate 86 84 119 H Respiratory Rate 23 H 24 H 20 Blood Pressure 129/86 Pulse Oximetry 97 97 98 Oxygen Delivery 11/10/24 17:00 11/10/24 17:01 11/10/24 17:15 Temperature Pulse Rate 79 95 103 H Respiratory Rate 19 21 H 17 Blood Pressure 108/60 Pulse Oximetry 96 97 99 Oxygen Delivery 11/10/24 17:32 11/10/24 17:45 11/10/24 18:00 Temperature Pulse Rate 80 81 71 Respiratory Rate 15 16 20 Blood Pressure Pulse Oximetry 98 97 96 Oxygen Delivery 11/10/24 18:15 11/10/24 18:27 11/10/24 18:30 Temperature Pulse Rate 78 76 83 Respiratory Rate 13 19 22 H Blood Pressure 128/65 Pulse Oximetry 100 99 Oxygen Delivery 11/10/24 18:31 11/10/24 18:45 11/10/24 19:00 Temperature Pulse Rate 88 79 79 Respiratory Rate 24 H 17 23 H Blood Pressure 116/94 H Pulse Oximetry 99 98 98 Oxygen Delivery 11/10/24 19:01 11/10/24 22:00 11/11/24 06:00 Temperature 98.1 F 98.3 F Pulse Rate 69 71 68 Respiratory Rate 16 18 18 Blood Pressure 127/77 128/64 122/67 Pulse Oximetry 96 100 99 Oxygen Delivery Exam 2 Const: General: cooperative, healthy appearing, comfortable, no acute distress and well developed Orientation/consciousness: oriented to person, oriented to place, oriented to time and patient oriented x3 HENMT: Head: normal to inspection, normocephalic and atraumatic Mouth: Yes Normal oral and palatal mucosa present and Yes moist mucous membranes Eyes: General: appearance normal, both eyes and all related structures C onjunctivae: conjunctivae normal Sclera: sclerae normal Pupils: Equal, round and reactive pupils present Neck: Neck: normal visual inspection Chest: Chest palpation & inspection: normal inspection of the chest Resp: Effort & Inspection: normal respiratory effort and able to speak in complete sentences Auscultation: clear to auscultation bilaterally Cardio: Jugular venous distension: no JVD Rate: regular rate Rhythm: r egular rhythm Heart sounds: S1 normal heart sound present and S2 normal heart sound present GI: Inspection: normal to inspection GI Palp: Yes Soft to palpation and Yes No hepatosplenomegaly present Auscultation: normal bowel sounds Rectal Exam: deferred Skin: General skin exam: normal color and no rashes or lesions noted Neuro: General: oriented to person, oriented to place, oriented to time and patient oriented x3 Cranial nerves: Yes Equal, round and reactive pupils present Speech: normal speech Extrem: General: normal to inspection and no clubbing, cyanosis or edema Psych: Appearance: grossly normal and well kempt Affect: normal affect Results Labs 11/11/24 05:58 11/11/24 05:58 Labs: Short CBC 11/10/24 11/11/24 Range/Units 15:45 05:58 WBC 12.0 H 5.7 (4.5-10.0) K/mm3 Hgb 16.3 H 11.9 L D (12.0-15.0) g/dL Hct 47.3 H 35.6 L (37.0-47.0) % Plt Count 213 124 L (150-375) k/mm3 BMP 11/10/24 11/11/24 15:45 05:58 Sodium 136 L 132 L Potassium 3.2 L 3.2 L Chloride 90 L 94 L Carbon Dioxide 16 L 31 H BUN 12 12 Creatinine 1.08 H 0.69 L Glucose 135 H 90 Calcium 9.9 8.2 L Cardiac Enzymes 11/10/24 Range/Units 21:58 Total Creatine Kinase 60 (30-135) U/L Liver Function 11/10/24 11/11/24 Range/Units 15:45 05:58 Total Bilirubin 6.8 H 5.6 H (0.2-1.3) mg/dL AST 160 H 98 H (14-36) U/L ALT 119 H 76 H (6-35) U/L Alkaline Phosphatase 130 H 79 (38-126) U/L Albumin 5.0 3.4 L (3.5-5.1) g/dL Urine 11/10/24 Range/Units 16:23 Urine Color Dark yellow (Yellow) Urine Appearance Cloudy H (Clear) Urine pH 5.5 (5.0-9.0) Ur Specific [place] 1.022 (1.001-1.035) Urine Protein 2+ H (Negative) mg/dL Urine Glucose (UA) Negative (Negative) mg/dL
[2024-11-11] MEDS: PANTOPRAZOLE SODIUM IV 40 MG VIAL IV PUSH (09:10)
[2024-11-11] MEDS: POTASSIUM CHLORIDE 20 MEQ ER TABLET PO (09:11)
[2024-11-11 10:15] LABS: Immature Reticulocyte Fraction 9.6 % (3.0-15.9); Reticulocyte Hemoglobin Conten 35.5 pg (28.2-36.6); Reticulocytes Absolute 0.05 10^6/uL (0.02-0.10)
[2024-11-11 10:49] VITALS: BMI 25.1
[2024-11-11 11:10] LABS: INR 1.0; Prothrombin Time 13.6 Seconds (11.1-14.7)
[2024-11-11 12:06] LABS: Vitamin B12 317.0 pg/mL (239-931)
[2024-11-11 14:00] VITALS: BP 103/52; PULSE 71; RESP 18; TEMP 36.3; O2SAT 95
--- NOTE | 2024-11-11 14:15 | P.PNIM_ITS ---
Progress Note: A&P Assessment and Plan (1) Nausea & vomiting: Qualifiers: Vomiting type: unspecified Qualified Code(s): R11.2 - Nausea with vomiting, unspecified Code(s): R11.2 - Nausea with vomiting, unspecified Status: Acute Assessment and Plan: - CT abd/pelvis, 11/10: 1. Mild thickening of the ascending and transverse colon, suspicious for colitis, most likely infectious or inflammatory. 2: Family infiltration of the liver. 3: Small hiatal hernia. 4: Small fat-containing umbilical hernia. - GI consulted - has hx of cholecystectomy, consider biliary sludge. May need ERCP. - IV fluids: 3L -> 125 mL/hr - check UDS - antiemetics prn well controlled outot EGD.colonoscopy as already scheduled with Dr Andrade (2) Transaminitis: Code(s): R74.01 - Elevation of levels of liver transaminase levels Status: Acute Assessment and Plan: - total bilirubin 6.8, at AST 160, ALT 119, alk-phos 130 - GI consulted - check hepatitis panel, haptoglobin, GGT, ESR, EBV, CRP, CK, CMP, bilirubin indirect, DEREJE, and SMA - trend Differential includes DWYER, biliary sludge, EBV, CMV, autoimmune, sepsis (3) Lactic acidosis: Code(s): E87.20 - Acidosis, unspecified Status: Acute Assessment and Plan: - lactic 4.7 upon admission. Given IV fluids (3L) -> 3.0. Recheck in a.m.. - check procalcitonin - IV fluids Secondary to sepsis verses acute dehydration secondary to nausea/vomiting. Possible infectious versus including colitis and UTI. (4) Colitis: Code(s): K52.9 - Noninfective gastroenteritis and colitis, unspecified Status: Acute Assessment and Plan: Does report mild abdominal cramping that is relieved with bowel movements as well as diarrhea. No previous history of colitis. - Mild thickening of the ascending and transverse colon, suspicious for colitis, most likely infectious or inflammatory on CT on 11/10 - started on ceftriaxone and Flagyl on 11/10 - antiemetics and analgesics p.r.n. - IV fluids - clear liquid diet - daily clinical reassessment for improvement Plan Diet: Clear liquid GI Prophylaxis: PPI IV DVT Prophylaxis: SCDs IV fluids: 3L -> 125 mL/hr Lines/Tubes: Peripheral IV Code Status: DNR Time Spent With Patient Time with patient: 25 - 35 minutes Subjective Date/time seen: 11/11/24 14:15 Interval history: 59 y/o F with PMH of asthma and cholecystectomy presents here with nausea and vomiting. The patient presents here from home a on 11/10 for further evaluation of nausea and vomiting. She reports onset approximately 2 days ago. She reports intermittent abdominal cramping that is relieved with a bowel movement. She a dditionally has been experiencing diarrhea. She denies accompanying lower abdominal pain, fever, body aches, or urinary symptoms. She denies any significant past GI history beyond a cholecystectomy. She does report moderate alcohol use. She reports she drinks 6 beers (3 Sunday, 3 Sunday) weekly. She denies any previous history of IV drug use. She denies any personal history of autoimmune disorder or any known family history of autoimmune disorder. Initial VS at presentation: 97.2? F, HR 116, R 14, 128/86, and 97% on RA. ED workup showed: WBC 12.0, hemoglobin 16.3 (16.0 on 09/05/2024), sodium 136, potassium 3.2, creatinine 1.08 and GFR 52, lactic 4.7, and UA showing possible UTI. CT of the abdomen/pelvis showed mild thickening of the ascending and transverse colon suspicious for colitis (infectious or inflammatory), fatty infiltration of the liver, small hiatal hernia, small fat containing umbilical hernia. Pt is seen and examined. GI is consulted. pT IS FEELING a lot better. IV fluids infusing. States has gas now, able to ambulate well. Review of Systems Review of Systems: All systems reviewed & are unremarkable except as noted in HPI and below Exam Const: General: comfortable and no acute distress Other: , female, nontoxic appearance HENMT: Face/Nose/Sinus: Normal nares present Mouth: Yes moist mucous membranes Eyes: General: appearance normal, both eyes and all related structures Sclera: sclerae normal Pupils: Equal, round and reactive pupils present EOM: EOMs intact bilaterally Resp: Effort & Inspection: normal respiratory effort Auscultation: clear to auscultation bilaterally Cardio: Rate: regular rate Rhythm: regular rhythm Other: S1-S2 present without murmur, rub, ectopy GI: Other: Abdomen soft, nondistended, nontender. Normoactive bowel sounds in all quadrants. Skin: General skin exam: normal color and no rashes or lesions noted Wounds: no wounds Neuro: Cranial nerves: Yes Equal, round and reactive pupils present Speech: normal speech Motor exam (neuro): 5/5 motor strength present throughout Sensory Exam: normal sensation Other: A&O x4 Extrem: General: normal to inspection Psych: Mental Status: mental status grossly normal Affect: normal affect Other: Good insight and judgment, pleasant Objective Data Vital Signs Vital Signs: Vital Signs - 24 hr 11/10/24 15:24 11/10/24 15:33 11/10/24 15:34 Temperature 98.1 F Pulse Rate 118 H 105 H 102 H Respiratory Rate 17 8 L 20 Blood Pressure 136/97 H 136/97 H Pulse Oximetry 99 11/10/24 15:45 11/10/24 16:00 11/10/24 16:15 Temperature Pulse Rate 96 85 120 H Respiratory Rate 22 H 17 18 Blood Pressure Pulse Oximetry 96 96 11/10/24 16:23 11/10/24 16:24 11/10/24 16:30 Temperature Pulse Rate 84 82 86 Respiratory Rate 15 20 23 H Blood Pressure 114/72 Pulse Oximetry 97 97 97 11/10/24 16:31 11/10/24 16:45 11/10/24 17:00 Temperature Pulse Rate 84 119 H 79 Respiratory Rate 24 H 20 19 Blood Pressure 129/86 Pulse Oximetry 97 98 96 11/10/24 17:01 11/10/24 17:15 11/10/24 17:32 Temperature Pulse Rate 95 103 H 80 Respiratory Rate 21 H 17 15 Blood Pressure 108/60 Pulse Oximetry 97 99 98 11/10/24 17:45 11/10/24 18:00 11/10/24 18:15 Temperature Pulse Rate 81 71 78 Respiratory Rate 16 20 13 Blood Pressure Pulse Oximetry 97 96 11/10/24 18:27 11/10/24 18:30 11/10/24 18:31 Temperature Pulse Rate 76 83 88 Respiratory Rate 19 22 H 24 H Blood Pressure 128/65 116/94 H Pulse Oximetry 100 99 99 11/10/24 18:45 11/10/24 19:00 11/10/24 19:01 Temperature Pulse Rate 79 79 69 Respiratory Rate 17 23 H 16 Blood Pressure 127/77 Pulse Oximetry 98 98 96 11/10/24 22:00 11/11/24 06:00 Temperature 98.1 F 98.3 F Pulse Rate 71 68 Respiratory Rate 18 18 Blood Pressure 128/64 122/67 Pulse Oximetry 100 99 Intake/Output Intake/Output: Intake & Output 11/08/24 11/09/24 11/10/24 11/11/24 23:59 23:59 23:59 23:59 Intake Total 3100 1800 Balance 3100 1800 Meds/Results Medications: Active Medications Generic Name Dose Route Start Last Admin Trade Name Freq PRN Reason Stop Dose Admin Acetaminophen 650 mg 11/11/24 00:11 Acetaminophen 325 Mg Tablet PO Q6H PRN Mild Pain (1-3) or Fever Hydrocodone Bitart/Acetaminophen 1 tab 11/11/24 00:11 11/11/24 01:53 Hydrocodone/Acetaminophen (*Crx) 5-325 Mg Tablet PO 1 tab Q6H PRN Administration Pain Rated 4-6 Lactated Ringer's 1,000 mls @ 125 mls/hr 11/10/24 18:45 11/11/24 07:30 Lr - Lactated Ringers Iv IV CONT 125 mls/hr .Q8H JOE Administration Ceftriaxone Sodium 1 gm/ 50 mls @ 100 mls/hr 11/10/24 21:30 11/10/24 21:59 Sodium Chloride IVPB 100 mls/hr HS JOE Administration Metronidazole 500 mg in 100 mls @ 100 mls/hr 11/10/24 22:00 11/11/24 05:24 Flagyl 500 Mg/Iso Soln 100 Ml IVPB 100 mls/hr Q8H JOE Administration Melatonin 5 mg 11/10/24 21:45 11/10/24 22:03 Melatonin 5 Mg Tablet PO 5 mg HS JOE Administration Ondansetron HCl 4 mg 11/10/24 18:44 Ondansetron Inj 4 Mg/2 Ml Vial IV PUSH Q4H PRN Nausea Pantoprazole Sodium 40 mg 11/11/24 09:00 11/11/24 09:10 Pantoprazole Sodium Iv 40 Mg Vial IV PUSH 40 mg QAM JOE Administration Potassium Chloride 20 meq 11/11/24 09:00 11/11/24 09:11 Potassium Chloride 20 Meq Er Tablet PO 20 meq DAILY JOE Administration Radiology Results: ITS Impressions Abdomen/Pelvis CT 11/10/24 17:41 IMPRESSION: 1. Mild thickening of the ascending and transverse colon, suspicious for colitis, most likely infectious or inflammatory. 2: Family infiltration of the liver. 3: Small hiatal hernia. 4: Small fat-containing umbilical hernia. Labs Labs: Laboratory Results - last 24 hr 11/10/24 11/10/24 11/10/24 15:45 16:23 16:24 WBC 12.0 H RBC 4.69 Hgb 16.3 H Hct 47.3 H MCV 100.9 H MCH 34.8 H MCHC 34.5 RDW 13.1 Plt Count 213 MPV 11.3 H Immature Gran % (Auto) 0.6 H Neut % (Auto) 84.9 H Lymph % (Auto) 5.2 L [place] % (Auto) 9.0 H Eos % (Auto) 0.0 Baso % (Auto) 0.3 Lymph # (Auto) 0.62 L [place] # (Auto) 1.1 H Eos # (Auto) 0.0 Baso # (Auto) 0.0 Abs Immat Gran (auto) 0.07 H Absolute Neuts (auto) 10.2 H Absolute Nucleated RBC 0.020 H Nucleated RBC % 0.2 ESR Absolute Retic Percent Retic Immature Retic Fraction Retic Hgb Content PT INR VBG pH VBG pCO2 VBG pO2 VBG HCO3 O2 Delivery Device O2 Liters/Min FiO2 Sodium 136 L Potassium 3.2 L Chloride 90 L Carbon Dioxide 16 L Anion Gap 30 H BUN 12 Creatinine 1.08 H Estim Creat Clear Calc 36 Estimated GFR 52 L Glucose 135 H Lactic Acid Calcium 9.9 Total Bilirubin 6.8 H Indirect Bilirubin AST 160 H ALT 119 H Alkaline Phosphatase 130 H Lactate Dehydrogenase Total Creatine Kinase C-Reactive Protein Total Protein 9.1 H Albumin 5.0 Lipase 42 Vitamin B12 Folate Procalcitonin Urine Color Dark yellow Urine Appearance Cloudy H Urine pH 5.5 Ur Specific [place] 1.022 Urine Protein 2+ H Urine Glucose (UA) Negative Urine Ketones 3+ H Ur Blood (Man) 2+ H Urine Nitrate Negative Urine Bilirubin 2+ H Urine Urobilinogen 1.0 Leukocyte Esterase Rfl Trace H Urine RBC 11-20 H Urine WBC 0-5 Ur Squamous Epith Cells Many H Urine Bacteria Rare Urine Casts >20 Hyaline Casts Present POC Urine HCG, Qual Negative Urine Opiates Screen Urine Methadone Screen Ur Barbiturates Screen Ur Phencyclidine Scrn Ur Amphetamine Screen U Benzodiazepines Scrn Urine Cocaine Screen U Cannabinoids Screen Hep Bs Antigen Hep B Core IgM Ab Hepatitis C Ab Screen 11/10/24 11/10/24 11/10/24 16:56 19:46 21:58 WBC RBC Hgb Hct MCV MCH MCHC RDW Plt Count MPV Immature Gran % (Auto) Neut % (Auto) Lymph % (Auto) [place] % (Auto) Eos % (Auto) Baso % (Auto) Lymph # (Auto) [place] # (Auto) Eos # (Auto) Baso # (Auto) Abs Immat Gran (auto) Absolute Neuts (auto) Absolute Nucleated RBC Nucleated RBC % ESR 21 H Absolute Retic Percent Retic Immature Retic Fraction Retic Hgb Content PT INR VBG pH 7.410 H* VBG pCO2 31.5 L VBG pO2 74.0 H VBG HCO3 19.5 L O2 Delivery Device Room air O2 Liters/Min Not Reportable FiO2 21 Sodium Potassium Chloride Carbon Dioxide Anion Gap BUN Creatinine Estim Creat Clear Calc Estimated GFR Glucose Lactic Acid 4.7 H* 3.0 H Calcium Total Bilirubin Indirect Bilirubin 4.8 H AST ALT Alkaline Phosphatase Lactate Dehydrogenase Total Creatine Kinase 60 C-Reactive Protein 2.2 H Total Protein Albumin Lipase Vitamin B12 Folate Procalcitonin 0.1 Urine Color Urine Appearance Urine pH Ur Specific [place] Urine Protein Urine Glucose (UA) Urine Ketones Ur Blood (Man) Urine Nitrate Urine Bilirubin Urine Urobilinogen Leukocyte Esterase Rfl Urine RBC Urine WBC Ur Squamous Epith Cells Urine Bacteria Urine Casts Hyaline Casts POC Urine HCG, Qual Urine Opiates Screen Urine Methadone Screen Ur Barbiturates Screen Ur Phencyclidine Scrn Ur Amphetamine Screen U Benzodiazepines Scrn Urine Cocaine Screen U Cannabinoids Screen Hep Bs Antigen Negative Hep B Core IgM Ab Negative Hepatitis C Ab Screen Negative 11/11/24 11/11/24 11/11/24 01:42 05:53 05:58 WBC 5.7 RBC 3.46 L Hgb 11.9 L D Hct 35.6 L MCV 102.9 H MCH 34.4 H MCHC 33.4 RDW 13.3 Plt Count 124 L MPV 10.8 H Immature Gran % (Auto) 0.4 Neut % (Auto) 64.3 Lymph % (Auto) 20.0 [place] % (Auto) 13.7 H Eos % (Auto) 0.9 Baso % (Auto) 0.7 Lymph # (Auto) 1.14 [place] # (Auto) 0.8 H Eos # (Auto) 0.1 Baso # (Auto) 0.0 Abs Immat Gran (auto) 0.02 Absolute Neuts (auto) 3.7 Absolute Nucleated RBC 0.000 Nucleated RBC % 0.0 ESR Absolute Retic 0.05 Percent Retic 1.35 Immature Retic Fraction 9.6 Retic Hgb Content 35.5 PT INR VBG pH VBG pCO2 VBG pO2 VBG HCO3 O2 Delivery Device O2 Liters/Min FiO2 Sodium 132 L Potassium 3.2 L Chloride 94 L Carbon Dioxide 31 H Anion Gap 7 BUN 12 Creatinine 0.69 L Estim Creat Clear Calc 54 Estimated GFR > 60 Glucose 90 Lactic Acid 1.2 Calcium 8.2 L Total Bilirubin 5.6 H Indirect Bilirubin AST 98 H ALT 76 H Alkaline Phosphatase 79 Lactate Dehydrogenase 306 H Total Creatine Kinase C-Reactive Protein Total Protein 6.0 L Albumin 3.4 L Lipase Vitamin B12 317.0 Folate 1.8 L Procalcitonin Urine Color Urine Appearance Urine pH Ur Specific [place] Urine Protein Urine Glucose (UA) Urine Ketones Ur Blood (Man) Urine Nitrate Urine Bilirubin Urine Urobilinogen Leukocyte Esterase Rfl Urine RBC Urine WBC Ur Squamous Epith Cells Urine Bacteria Urine Casts Hyaline Casts POC Urine HCG, Qual Urine Opiates Screen Negative Urine Methadone Screen Negative Ur Barbiturates Screen Negative Ur Phencyclidine Scrn Negative Ur Amphetamine Screen Negative U Benzodiazepines Scrn Negative Urine Cocaine Screen Negative U Cannabinoids Screen Negative Hep Bs Antigen Hep B Core IgM Ab Hepatitis C Ab Screen 11/11/24 10:30 WBC RBC Hgb Hct MCV MCH MCHC RDW Plt Count MPV Immature Gran % (Auto) Neut % (Auto) Lymph % (Auto) [place] % (Auto) Eos % (Auto) Baso % (Auto) Lymph # (Auto) [place] # (Auto) Eos # (Auto) Baso # (Auto) Abs Immat Gran (auto) Absolute Neuts (auto) Absolute Nucleated RBC Nucleated RBC % ESR Absolute Retic Percent Retic Immature Retic Fraction Retic Hgb Content PT 13.6 INR 1.0 VBG pH VBG pCO2 VBG pO2 VBG HCO3 O2 Delivery Device O2 Liters/Min FiO2 Sodium Potassium Chloride Carbon Dioxide Anion Gap BUN Creatinine Estim Creat Clear Calc Estimated GFR Glucose Lactic Acid Calcium Total Bilirubin Indirect Bilirubin AST ALT Alkaline Phosphatase Lactate Dehydrogenase Total Creatine Kinase C-Reactive Protein Total Protein Albumin Lipase Vitamin B12 Folate Procalcitonin Urine Color Urine Appearance Urine pH Ur Specific [place] Urine Protein Urine Glucose (UA) Urine Ketones Ur Blood (Man) Urine Nitrate Urine Bilirubin Urine Urobilinogen Leukocyte Esterase Rfl Urine RBC Urine WBC Ur Squamous Epith Cells Urine Bacteria Urine Casts Hyaline Casts POC Urine HCG, Qual Urine Opiates Screen Urine Methadone Screen Ur Barbiturates Screen Ur Phencyclidine Scrn Ur Amphetamine Screen U Benzodiazepines Scrn Urine Cocaine Screen U Cannabinoids Screen Hep Bs Antigen Hep B Core IgM Ab Hepatitis C Ab Screen Quality VTE Prophylaxis VTE prophylaxis: mechanical ordered
[2024-11-11 17:45] VITALS: BP 130/70; PULSE 88; RESP 20; TEMP 36.4; O2SAT 98
[2024-11-11 19:56] LABS: HAV RESULT Negative (Negative)
[2024-11-11] MEDS: cefTRIAXone 1 GM in SODIUM CHLORIDE 0.9% IV 50 ML 100 ML IVPB (20:21)
[2024-11-11] MEDS: MELATONIN 5 MG TABLET PO (20:22)
[2024-11-11 20:30] VITALS: PULSE 66; RESP 18; O2SAT 90
[2024-11-11 22:00] VITALS: BP 111/67; PULSE 66; RESP 18; TEMP 36.4; O2SAT 97
[2024-11-11 22:39] VITALS: O2SAT 90
[2024-11-12] MEDS: metroNIDAZOLE 500 MG/ISO 100ML 500 MG/100 ML BAG 100 MG IVPB (05:24)
[2024-11-12 06:00] VITALS: BP 116/71; PULSE 61; RESP 18; TEMP 36.2; O2SAT 99
[2024-11-12] MEDS: LACTATED RINGERS 1,000 ML 125 ML IV CONT (06:41)
[2024-11-12 07:09] LABS: Cytomegalovirus (CMV) Ab, IgG >10.00 U/mL (0.00-0.59); Cytomegalovirus (CMV) Ab, IgM <30.0 AU/mL (0.0-29.9)
--- NOTE | 2024-11-12 07:38 | P.PNIM_ITS ---
Progress Note: A&P Assessment and Plan (1) Nausea & vomiting: Qualifiers: Vomiting type: unspecified Qualified Code(s): R11.2 - Nausea with vomiting, unspecified Code(s): R11.2 - Nausea with vomiting, unspecified Status: Acute Assessment and Plan: - CT abd/pelvis, 11/10: 1. Mild thickening of the ascending and transverse colon, suspicious for colitis, most likely infectious or inflammatory. 2: Family infiltration of the liver. 3: Small hiatal hernia. 4: Small fat-containing umbilical hernia. - hx of cholecystectomy - IV fluids: 3L -> 125 mL/hr - check UDS - antiemetics prn - GI consulted DDX: Acid versus nonacid reflux versus motility disorder versus medication induced. Continue supportive care with antiemetics Patient is scheduled for an office visit with Dr. Atkins and November at which time she can discuss possible need for EGD Continue Protonix and patient will need to be discharged home on Protonix 40 mg daily (2) Transaminitis: Code(s): R74.01 - Elevation of levels of liver transaminase levels Status: Acute Assessment and Plan: Total bilirubin 6.8, at AST 160, ALT 119, alk-phos 130 on admission Differential includes DWYER, biliary sludge, EBV, CMV, autoimmune, sepsis - LFTs slightly improving - GI consulted Additional work up ordered to rule out hemolytic anemia, Kenny disease, B12 or folate deficiency and more advanced liver disease than that seen on imaging such as cirrhosis (given abnormal LFT's, low albumin, low platelets and macrocytosis), Less likely related to viral etiology given the low transaminase levels, but could be early presentation Hep A, B and C negative haptoglobin, GGT and Actin IgG still pending T/C outpatient FibroScan (3) Colitis: Code(s): K52.9 - Noninfective gastroenteritis and colitis, unspecified Status: Acute Assessment and Plan: Does report mild abdominal cramping that is relieved with bowel movements as well as diarrhea. No previous history of colitis. - Mild thickening of the ascending and transverse colon, suspicious for colitis, most likely infectious or inflammatory on CT on 11/10 - Antibiotics: started on ceftriaxone and Flagyl on 11/10 - antiemetics and analgesics p.r.n. - IV fluids - advanced to heart healthy diet - Monitor vital signs, I&Os, track stool output, watch for bloody stools, neuro status and patient is a fall risk - Monitor serum electrolytes and CBC - GI consulted continue antibiotics can discuss outpatient colonoscopy during her visit with Dr. Atkins no plans for endoscopic evaluation this admission unless there is a change in clinical presentation diet advanced (4) Lactic acidosis: Code(s): E87.20 - Acidosis, unspecified Status: Acute Assessment and Plan: - lactic 4.7 upon admission. Given IV fluids (3L) -> 3.0. - Procalcitonin 0.1 - IV fluids Secondary to sepsis with infectious causes of colitis and UTI verses acute dehydration secondary to nausea/vomiting. Resolved. Repeat latic WNL. Plan Diet: Clear liquid GI Prophylaxis: PPI IV DVT Prophylaxis: SCDs IV fluids: 3L -> 125 mL/hr Lines/Tubes: Peripheral IV Code Status: DNR Subjective Date/time seen: 11/12/24 07:38 Interval history: 59 y/o F with PMH of asthma and cholecystectomy presents here with nausea and vomiting. Review of Systems Review of Systems: All systems reviewed & are unremarkable except as noted in HPI and below Exam Narrative: AF General: well nourished, well-developed female in no acute respiratory distress who is nontoxic appearing, lying semi recumbent in bed. HEENT: Normocephalic. Atraumatic. Pupils equal round reactive to light. Extraocular movement intact. Sclera clear and anicteric. Nares patent. No oral lesions. Moist mucous membranes. Tongue is midline. Palate rafael symmetrically. No facial asymmetry. Neck: Neck was supple. No dominant adenopathy, thyromegaly or masses. 2+ carotid upstrokes without bruits. Chest: Lungs are clear to auscultation bilaterlly. No wheezes or crackles. CV: Heart was regular rate and rhythm. S1-S2. No murmurs, gallops, or rubs. Abd: Abdomen was soft. Nontender. Nondistended. Postive bowel sounds. No organo megaly or masses. Ext: No clubbing, cyanosis, or edema. 2+ DP pulses bilaterally. Neuro: Patient is alert and oriented x4. Strenth is 5/5 in both upper and lower extremities. Cranial nerves 2-12 are intact. Speech is clear. Psych: Normal nood and affect. Patient is pleasant and cooperative. Skin: Warm and dry. No rashes noted. Objective Data Vital Signs Vital Signs: Vital Signs - 24 hr 11/11/24 14:00 11/11/24 17:45 11/11/24 20:30 Temperature 97.3 F L 97.6 F Pulse Rate 71 88 66 Respiratory Rate 18 20 18 Blood Pressure 103/52 L 130/70 Pulse Oximetry 95 98 90 Oxygen Delivery Room Air Fraction of Inspired Oxygen 21 11/11/24 22:00 11/11/24 22:39 11/12/24 06:00 Temperature 97.6 F 97.1 F L Pulse Rate 66 61 Respiratory Rate 18 18 Blood Pressure 111/67 116/71 Pulse Oximetry 97 90 99 Oxygen Delivery Room Air Fraction of Inspired Oxygen 21 Intake/Output Intake/Output: Intake & Output 11/09/24 11/10/24 11/11/24 11/12/24 23:59 23:59 23:59 23:59 Intake Total 3150 4060 1550 Balance 3150 4060 1550 Meds/Results Medications: Active Medications Generic Name Dose Route Start Last Admin Trade Name Freq PRN Reason Stop Dose Admin Acetaminophen 650 mg 11/11/24 00:11 Acetaminophen 325 Mg Tablet PO Q6H PRN Mild Pain (1-3) or Fever Hydrocodone Bitart/Acetaminophen 1 tab 11/11/24 00:11 11/11/24 01:53 Hydrocodone/Acetaminophen (*Crx) 5-325 Mg Tablet PO 1 tab Q6H PRN Administration Pain Rated 4-6 Lactated Ringer's 1,000 mls @ 125 mls/hr 11/10/24 18:45 11/12/24 06:41 Lr - Lactated Ringers Iv IV CONT 125 mls/hr .Q8H JOE Administration Ceftriaxone Sodium 1 gm/ 50 mls @ 100 mls/hr 11/10/24 21:30 11/11/24 20:21 Sodium Chloride IVPB 100 mls/hr HS JOE Administration Metronidazole 500 mg in 100 mls @ 100 mls/hr 11/10/24 22:00 11/12/24 05:24 Flagyl 500 Mg/Iso Soln 100 Ml IVPB 100 mls/hr Q8H JOE Administration Melatonin 5 mg 11/10/24 21:45 11/11/24 20:22 Melatonin 5 Mg Tablet PO 5 mg HS JOE Administration Ondansetron HCl 4 mg 11/10/24 18:44 Ondansetron Inj 4 Mg/2 Ml Vial IV PUSH Q4H PRN Nausea Pantoprazole Sodium 40 mg 11/11/24 09:00 11/11/24 09:10 Pantoprazole Sodium Iv 40 Mg Vial IV PUSH 40 mg QAM COUNTS INCLUDE 234 BEDS AT THE [facility] Administration Potassium Chloride 20 meq 11/11/24 09:00 11/11/24 09:11 Potassium Chloride 20 Meq Er Tablet PO 20 meq DAILY JOE Administration Thiamine HCl 100 mg 11/12/24 09:00 Thiamine Hcl 100 Mg Tablet PO QAM COUNTS INCLUDE 234 BEDS AT THE [facility] Radiology Results: ITS Impressions Abdomen/Pelvis CT 11/10/24 17:41 IMPRESSION: 1. Mild thickening of the ascending and transverse colon, suspicious for colitis, most likely infectious or inflammatory. 2: Family infiltration of the liver. 3: Small hiatal hernia. 4: Small fat-containing umbilical hernia. Labs Labs: Laboratory Results - last 24 hr 11/10/24 11/11/24 11/11/24 21:58 05:53 05:58 Absolute Retic 0.05 Percent Retic 1.35 Immature Retic Fraction 9.6 Retic Hgb Content 35.5 PT INR Lactate Dehydrogenase 306 H Ceruloplasmin Vitamin B12 317.0 Folate 1.8 L CMV IgG Ab >10.00 H CMV IgM Ab <30.0 Hepatitis A IgM Ab Negative 11/11/24 10:30 Absolute Retic Percent Retic Immature Retic Fraction Retic Hgb Content PT 13.6 INR 1.0 Lactate Dehydrogenase Ceruloplasmin 17.4 L Vitamin B12 Folate CMV IgG Ab CMV IgM Ab Hepatitis A IgM Ab Quality VTE Prophylaxis VTE prophylaxis: mechanical ordered
[2024-11-12] MEDS: PANTOPRAZOLE SODIUM IV 40 MG VIAL IV PUSH (08:24)
[2024-11-12] MEDS: THIAMINE HCL 100 MG TABLET PO (08:24)
[2024-11-12] MEDS: FOLIC ACID 1 MG TABLET PO (08:24)
[2024-11-12] MEDS: POTASSIUM CHLORIDE 20 MEQ ER TABLET PO (08:25)
[2024-11-12 08:51] LABS: Hematocrit 37.4 % (37.0-47.0); Hemoglobin 12.1 g/dL (12.0-15.0); Immature Platelet Fraction Pct 11.0 % (0.9-11.2); Mean Corpuscular HGB Conc 32.4 g/dl (32-36); Mean Corpuscular Hemoglobin 34.2 pg (26-34); Mean Corpuscular Volume 105.6 fl (80-100); Platelet Count Result 134 k/mm3 (150-375); Red Blood Count 3.54 M/mm3 (4.2-5.4); White Blood Count 3.9 K/mm3 (4.5-10.0)
[2024-11-12 09:14] VITALS: O2SAT 94
[2024-11-12 09:19] LABS: Alanine Aminotransferase 78 U/L (6-35); Albumin Level 3.5 g/dL (3.5-5.1); Alkaline Phosphatase 65 U/L (38-126); Anion Gap 4 mmol/L (4-12); Aspartate Amino Transferase 109 U/L (14-36); Bilirubin,Total 3.8 mg/dL (0.2-1.3); Blood Urea Nitrogen 5 mg/dL (7-17); Calcium 8.7 mg/dL (8.4-10.2); Carbon Dioxide 34 mmol/L (22-30); Chloride 94 mmol/L (98-107); Estimated CRCL calculation 69 ml/min; Estimated Glomerular Filt Rate > 60; Glucose 117 mg/dL (65-110); Potassium 3.4 mmol/L (3.4-5.0); Sodium 132 mmol/L (137-145); Total Protein 6.2 g/dL (6.3-8.2)
[2024-11-12 11:08] LABS: GGT 117 IU/L (0-60)
--- NOTE | 2024-11-12 12:26 | P.DS_ITS ---
DS: Admitting Diagnosis Discharge Date 11/12/2024 Admitting Diagnosis nausea/vomiting transaminitis colitis lactic acidosis DS: Discharge Diagnosis Discharge Diagnosis (1) Nausea & vomiting: Qualifiers: Vomiting type: unspecified Qualified Code(s): R11.2 - Nausea with vomiting, unspecified Code(s): R11.2 - Nausea with vomiting, unspecified Status: Acute (2) Transaminitis: Code(s): R74.01 - Elevation of levels of liver transaminase levels Status: Acute (3) Colitis: Code(s): K52.9 - Noninfective gastroenteritis and colitis, unspecified Status: Acute (4) Lactic acidosis: Code(s): E87.20 - Acidosis, unspecified Status: Acute DS: Summary Hospital Course Reason for hospitalization: nausea/vomiting transaminitis colitis lactic acidosis Hospital Course: 59 year old female with past medical history of asthma and cholecystectomy prese nts to the hospital with nausea and vomiting. Not meeting sepsis criteria. Lactic 4.7 upon admission likely related to dehydration, given IV fluids and returned to WNL. LFTs significantly elevated on admission. CT abd/pelvis showed mild thickening of the ascending and transverse colon, suspicious for colitis, most likely infectious or inflammatory, fatty infiltration of the liver, small hiatal hernia, and small fat-containing umbilical hernia. GI consulted. Patient is scheduled for an office visit with Dr. Atkins in November at which time she can discuss possible need for EGD given the nausea/vomiting, until then patient should continue Protonix. Given the colitis seen on imaging patient was started on IV antibiotics on admission and transitioned to oral antibiotics at time of discharge to complete the course. Patient can discuss outpatient colonoscopy during her visit with Dr. Atkins. Patient was able to be advanced back to a normal diet denying any recurrence of nausea/vomiting, diarrhea or abdominal pain. On admission patient had noted transaminitis. Hepatitis panel negative. GI continuing outpatient workup to rule out hemolytic anemia, Kenny disease, B12 or folate deficiency and more advanced liver disease than that seen on imaging such as cirrhosis (given abnormal LFT's, low albumin, low platelets and macrocytosis). Patient noted to drink alcohol daily. She states that she plans to stop drinking on discharge. Strongly encouraged patient alcohol cessation. She remains on folic acid and thiamine. Discussed with patient that care coordination can given resources for alcohol cessation and she states she wishes to try stopping on her own at this time and does not want the resources. Patient had no complaints at time of discharge denying chest pain, shortness a breath, palpitations. Patient states that she is tolerating her diet well denying any nausea/vomiting or abdominal pain. She notes that the diarrhea has resolved. She was able to ambulate throughout the room stating she feels back to her baseline. Prior to discharge discussed patient with GI Dr. Atkins who states patient is able to discharge from their perspective as well with outpatient follow up. Patient discharged home in a stable condition. She is to follow up with her PCP in [address] Atkins as scheduled. Status at Discharge Functional status at discharge: independent ambulation Time Spent with Patient Time attestation: Total time spent providing and/or coordinating discharge services: Time spent: Greater than 30 minutes Exam Narrative: AF HR 61 RR 18 SPO2 99 BP 116/71 General: female in no acute respiratory distress who is nontoxic appearing, sitting up in bed. HEENT: Normocephalic. Atraumatic. Extraocular movement intact. Sclera clear and anicteric. No facial asymmetry. Chest: Lungs are clear to auscultation bilaterally. CV: Heart was regular rate and rhythm. Abd: Abdomen was soft. Nontender. Nondistended. Positive bowel sounds. Ext: No clubbing, cyanosis, or edema. DP pulses bilaterally. Neuro: Patient is alert and oriented x3. Speech is clear. DS: Data Data Completed and Pending Completed studies during hospitalization: abdomen/pelvis ct Labs on day of discharge: Labs from last 24 hours 11/12/24 11/11/24 11/10/24 08:15 10:30 21:58 WBC 3.9 L RBC 3.54 L Hgb 12.1 Hct 37.4 MCV 105.6 H MCH 34.2 H MCHC 32.4 RDW 12.9 Plt Count 134 L MPV 11.4 H % Immature Plt Fraction 11.0 Haptoglobin 90 Sodium 132 L Potassium 3.4 Chloride 94 L Carbon Dioxide 34 H Anion Gap 4 BUN 5 L D Creatinine 0.53 L Estim Creat Clear Calc 69 Estimated GFR > 60 Glucose 117 H Calcium 8.7 Total Bilirubin 3.8 H GGT 117 H AST 109 H ALT 78 H Alkaline Phosphatase 65 Total Protein 6.2 L Albumin 3.5 Ceruloplasmin 17.4 L CMV IgG Ab >10.00 H CMV IgM Ab <30.0 Hepatitis A IgM Ab Negative Discharge Plan Discharge Attending physician on discharge: Guillermo Garg Consulting providers: Ady Lundberg; Nallely Hicks Discharging Clinician: Nallely Hicks Anticipated Discharge Date/Time: 11/12/24 12:16 Patient Disposition: Home Activity: as tolerated Diet: as tolerated and heart healthy Discharge Instructions: Discharge disposition: Patient admitted to the hospital for nausea/vomiting and diarrhea Diagnosed with colitis Evaluated by GI Take medications as prescribed Augmentin twice a day, attached is information on this medication Protonix, attached is information on this medication Take all medications as prescribed even if feeling better Eat well balanced meals and stay hydrated Keep active to remain strong During admission noted to have elevated liver enzymes Evaluated by GI Keep scheduled follow up appointment with GI Strongly encourage alcohol cessation Continue folic acid and thiamine, attached is information on these medications Take caution while standing, rising, or moving Change positions slowly taking a break between each position change If you standing feel dizzy sit back down and take a break Encouraged to continue with yearly vaccinations Return to the emergency department if he developed sudden shortness of breath, chest pain, nausea, vomiting, upset stomach or intractable diarrhea Return to the emergency department if you develop fever greater than 100.5 Follow-up with the primary care physician within 1-2 weeks Thank you for [facility] for your healthcare needs Patient Instructions: Antibiotic Form, Thiamine (By mouth), Amoxicillin/Clavulanate Potassium (By mouth), Folic Acid (By mouth), Pantoprazole (By mouth), Abuse of Alcohol (DC), Alcohol Withdrawal (DC), Colitis (ED) Patient Language: Senegalese Stand Alone Forms: General Discharge Information Follow-up/Referrals: fOe,Hernandez Morin MD [Primary Care Provider, Unknown] - 1 Week Ady Lundberg MD [Physician, Gastroenterology] - Keep Reg. Scheduled Appt. Discharge Medications: New thiamine HCl (vitamin B1) [Vitamin B-1] 100 mg Tablet 100 mg PO QAM Qty: 30 0RF folic acid 1 mg Tablet 1 mg PO DAILY Qty: 30 0RF amoxicillin-pot clavulanate 875-125 mg tablet 1 tablet PO Q12H Qty: 6 0RF pantoprazole [Protonix] 40 mg tablet,delayed release (DR/EC) 40 mg PO QAM Qty: 30 0RF Continued potassium chloride [Klor-Con M20] 20 mEq tablet,ER particles/crystals 20 meq PO DAILY Qty: 7 0RF Date of admission: 11/10/24 18:45 Primary Care Provider: OfeHernandez Admitting Provider: Ayush Rodas Attending physician on admission: Ayush Rodas Condition: Stable Hospitalist MIPS Heart Failure (Exclusion) Patient has history of Heart Transplant or Left Ventricular Assistive Device?: No IF YES, STOP HERE Heart Failure (Qualifier) Patient has current or prior documentation of LVEF less than or equal to 40%, or mod/servere depressed LVSF?: No IF NO, STOP HERE
[2024-11-12 14:08] LABS: EBV Nuclear Antigen Ab, IgG 126.0 U/mL (0.0-17.9)
[2024-11-14 03:07] LABS: ALT (SGPT) P5P 69 IU/L (0-40); AST (SGOT) P5P 114 IU/L (0-40); Alpha 2-Macroglobulins, Qn 128 mg/dL (110-276); Bilirubin, Total 4.6 mg/dL (0.0-1.2); Cholesterol, Total 143 mg/dL (100-199); GGT 107 IU/L (0-60); Glucose 93 mg/dL (70-99); Triglycerides 77 mg/dL (0-149)
== END 2024-11-12 12:51 | disposition home or self-care (01) ==
LOC: ANHED 16:31 → ANH3MEDSUR 20:55
PROVIDERS: Nurse Practitioner Family; Physician Assistant; Student in an Organized Health Care Education/Training Program; Admitting Provider General Practice; Emergency Provider General Practice; PCP Family Medicine; Visit Provider Internal Medicine
DX: K52.9 Noninfective gastroenteritis and colitis, unspecified (principal); K20.90 Esophagitis, unspecified without bleeding; R74.01 Elevation of levels of liver transaminase levels; J45.909 Unspecified asthma, uncomplicated; E87.20 Acidosis, unspecified; F10.20 Alcohol dependence, uncomplicated
CPT/HCPCS: 36415; 74177; 80053; 80074; 80307; 81001; 81025; 82172; 82247; 82390; 82465; 82550; 82607; 82746; 82803; 82947; 82977; 83010; 83605; 83615; 83690; 83883; 84145; 84450; 84460; 84478; 85025; 85027; 85046; 85055; 85610; 85652; 86015; 86140; 86644; 86645; 86664; 86665; 96361; 96365; 96366; 96367; 96374; 96375; 96376; 99285; A9270; G0378; J0696; J1836; J2405; J2470; J2550; J7030; J7120; Q9967

== ENCOUNTER 2024-12-15 01:21 | Day surgery (SDC) | payer BC, SELFPAY ==
[2024-12-04 09:18] VITALS: BMI 26.9
--- OUTSIDE RECORDS SUMMARY | 2024-12-15 01:23 | XMS_ITS | Clinical Summary ---
Author Organization [facility] [address] [facility] Address [address] [place] [address] Care Team Providers Care Sock Ironer Name Role Phone Hernandez Thakur MD Primary Care Provider [phone] Allergies No known active allergies Medications azithromycin [...] Description 11/07/2024 3:00 PM CDT Office Visit [facility] [place] [address] [place] [address] Agnes Beltran, KALA Acute otitis externa of right ear, unspecified type (Primary Dx) 10/21/2024 6:15 PM CDT Office Visit [facility] [place] [address] [place] [address] Diana Thorne, KALA Acute right otitis media (Primary Dx); Acute pharyngitis due to other specified organisms 10/09/2024 6:00 PM CDT Office Visit [facility] [place] [address] [place] [address] Ally Cohn NP Sore throat (Primary Dx); Acute swimmer's ear of right side from Last 3 Months Social History Tobacco Use Types Packs/Day Years Used Date Smoking Tobacco: Never Assessed Comments No Sex and Gender Information Value Date Recorded Sex Assigned at Not on file Legal Sex 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 Gender Identity Not on file Sexual Orientation [...] * COVID-19 POC (10/21/2024 6:42 PM CDT) COVID-19 Ag POC (BD Veritor) Presumptive Negative Presumptive Negative, Invalid [facility] Nasal 10/21/2024 6:42 PM CDT Diana Thorne FOOD PROCESSING SCIENTIST POINT OF CARE TEST ORDERA BLES Final Result [facility] [address] [place] [address], [facility] * POCT rapid strep A (10/21/2024 6:42 PM CDT) Rapid Strep A, POC Negative Negative Swab 10/21/2024 6:42 PM CDT Diana Thorne FOOD PROCESSING SCIENTIST POINT OF CARE TEST ORDERA BLES Final Result * POCT rapid strep A (10/09/2024 6:07 PM CDT) Rapid Strep A, POC Negative Negative Swab 10/09/2024 6:07 PM CDT Ally Cohn NP POINT OF CARE TEST ORDERABLES Final Result from Last 3 Months Insurance ANTHE[employer] ACCESS Member Subscriber Plan / Payer (Ef fective 2022-Present) Name:Tiesha Rojas Relation to Subscriber:Self Name:Tiesha Rojas Payer ID:[id number] (NAIC) Type:BC [employer] Address: [facility] [id number] [place] [id number] Care Teams Sock Ironer Relationship Specialty Start Date End Date Hernandez Thakur MD [address] [place] [address] PCP - General Family Medicine 10/21/24
[2024-12-15 09:46] VITALS: BP 144/84; PULSE 65; RESP 16; TEMP 36.6; O2SAT 98
[2024-12-15] MEDS: LACTATED RINGERS 1,000 ML 150 ML IV CONT (09:56)
--- NOTE | 2024-12-15 10:29 | WPDANESEPPF ---
Anes - Initial Pre Proc Eval Procedure: Operation Date: 12/15/24 11:00 Proposed Procedures p EGD & Diagnostic Colonoscopy - Ady Lundberg MD Date/Time: 12/15/24 10:29 Surgeon: Ady Lundberg MD Pre Op Diagnosis: Noninfective gastroenteritis and colitis, unspecif Patient Data Age: 59 Gender: F Height: 1.52 m Weight: 63.7 kg Last Vital Signs Temp 97.8 F 12/15/24 09:46 Pulse 65 12/15/24 09:46 Resp 16 12/15/24 09:46 BP 144/84 H 12/15/24 09:46 Pulse Ox 98 12/15/24 09:46 O2 Del Method Room Air 12/15/24 09:46 Allergies Allergy/AdvReac Type Severity Reaction Status Date / Time No Known Allergies Allergy Mild Verified 12/15/24 09:45 Home Medications ?Medication ?Instructions ?Recorded ?Confirmed ?Type potassium chloride 20 mEq 20 meq PO DAILY #7 tabs 07/18/24 12/15/24 Rx tablet,extended release(part/cryst) (Klor-Con M) folic acid 1 mg tablet 1 mg PO DAILY #30 tabs 11/12/24 12/15/24 Rx pantoprazole 40 mg tablet,delayed 40 mg PO QAM #30 tabs 11/12/24 12/15/24 Rx release (Protonix) thiamine HCl (vitamin B1) 100 mg 100 mg PO QAM #30 tabs 11/12/24 12/15/24 Rx tablet (Vitamin B-1) Patient hx anesthesia problems: none Family hx anesthesia problems: none Results Review: All pre-operative results and documents have been reviewed as part of the pre-operative evaluation. [facility] Past Medical History Medical History Postmenopausal Bronchitis Asthma Esophagitis Surgical History Surgical History History of section History of cholecystectomy Family History Family History Other Unknown family medical history Social History Social History Smoking status: Never smoker Alcohol intake: former Drinks per week: 3 Substance use: never Substance use type: does not use Do You Feel Safe in your Home?: Yes Lack of Transportation: No Lack of Food: Never True Current Housing: I Have Housing Concerned About Future Housing: No Difficulty Paying Gas/Electric Bills: No Difficulty Paying for Meds: No Currently Unemployed: No Education: Associate Degree Difficulty w/ Childcare or Family Care: No Living arrangements: alone Spiritual care concerns: No Anes - Eval Final PreProcedure Day of Procedure 12/15/24 10:29 Patient weight: overweight Lungs: normal air movement Airway: Mallampati scale class II Neurological: alert and oriented Last oral intake: >/= 8 hours ASA classification: III Emergent: no Anesthetic plan: proceed Anesthesia type and monitoring: general GIVS and standard monitoring Results Review: All pre-operative results and documents have been reviewed as part of the pre-operative evaluation. Remote hx of asthma, hx of ETOH use/abuse and hasn't had any for 6 weeks. Informed Consent: The patient's anesthetic plan and its attendant risks and benefits were discussed with the patient/family/POA. Questions were solicited and answers provided to the satisfaction of the patient/family/POA.
--- NOTE | 2024-12-15 10:46 | WPDHPUPDATE1 ---
History and Physical Update Update Date/Time: 12/15/24 10:46 History and Physical has been reviewed, including an updated exam of the patient. There are NO changes in the patient's condition. Risks, benefits, and alternatives have been discussed and questions answered. Patient agrees to proceed with procedure.
--- NOTE | 2024-12-15 10:58 | SUR.OPER ---
EGD TIME [id number], COLONOSCOPY TIME [id number]
--- NOTE | 2024-12-15 11:10 | S_PTH ---
PATIENT: Tiesha Rojas LOC: [facility]#:[id number] AGE/SX: 59/F ROOM: RE12/15/[address]: Ady Lundberg MD : 1965 BED: DIS: 12/15/2024 SPEC #: [id number] RECD: 12/15/24 11:37 STATUS: CHRIS RE #: [id number] CHRISTIANO: 12/15/24 11:[address]: Ady Lundberg DEPT: [facility] Surgical RECD BY: Meg Ann ENTERED: 12/15/24 11:37 SP TYPE: Surgical OTHR DR: Hernandez ThakurMD Tissues: A - Esophageal Biopsy B - Esophageal Biopsy C - Gastric Biopsy Procedures: Pas with Diastase Grocotts Methenamine Stain Hematoxylin and Eosin Stain Gross and Microscopic Level 4
[2024-12-15 11:11] VITALS: BP 93/60; PULSE 70; RESP 20; O2SAT 98
[2024-12-15 11:21] VITALS: BP 91/62; PULSE 68; RESP 19; O2SAT 98
[2024-12-15 11:31] VITALS: BP 111/56; PULSE 65; RESP 18; O2SAT 98
== END 2024-12-15 11:42 | disposition home or self-care (01) ==
PROVIDERS: PCP Family Medicine; Referring Provider Nurse Practitioner Family; Visit Provider Internal Medicine Gastroenterology
PROC: 0DJ08ZZ Inspection of Upper Intestinal Tract, Via Natural or Artificial Opening Endoscopic (ICD-10-PCS; CPT 45378; principal; 2024-12-15 11:00)
DX: K22.70 Barrett's esophagus without dysplasia (principal); K44.9 Diaphragmatic hernia without obstruction or gangrene; J45.909 Unspecified asthma, uncomplicated; Z98.890 Other specified postprocedural states; Z90.49 Acquired absence of other specified parts of digestive tract
CPT/HCPCS: 43239; 88305; 88312; 88313; J2003; J2704; J7120